=== PATIENT | female | born 1935 | race Caucasian/White ===

== ENCOUNTER 2018-11-02 12:40 | Inpatient (IN) | payer MEDICARE, OTHER ==
[~2018-11-02] VITALS: Ht 160 cm; Wt 45.4 kg
[2018-11-02 12:41] VITALS: BP 161/70
[2018-11-02] MEDS ORDERED: BISACODYL5 MG ORAL (13:12)
[2018-11-02] MEDS ORDERED: CULTURELLE1 EACH ORAL (13:12)
[2018-11-02] MEDS ORDERED: ELIQUIS2.5 MG PO (13:12)
[2018-11-02] MEDS ORDERED: BENTYL10 MG/1 ML IM (13:12)
[2018-11-02] MEDS ORDERED: VITAMIN D1000 UNI1 ORAL (13:12)
[2018-11-02] MEDS ORDERED: HYDROXYZINE HCL25 M1 PO (13:12)
[2018-11-02] MEDS ORDERED: BENGAY GREASELE57 GM TP (13:12)
[2018-11-02] MEDS ORDERED: COLACE100 MG ORAL (13:12)
[2018-11-02] MEDS ORDERED: FAMOTIDINE20 MG ORAL (13:12)
--- NOTE | 2018-11-02 13:13 | NUR ---
ED Nurse Note: Pt ADONAY from [facility] due to generalized whole body ache x "weeks", no recent injury. Pt. also complained of abd pain x 1 week. denies n/v/d. pt. came in with 20 gauge on the R hand. No s/s of acute distress noted. Pt. AAOx4.
[2018-11-02 13:14] LABS: BASOPHILS % (AUTO) 1.6 % (0.0-2.0); EOSINOPHILS % (AUTO) 2.4 % (0.0-3.0); HEMATOCRIT 37.6 % (37.0-47.0); HEMOGLOBIN 12.3 G/DL (12.0-16.0); LYMPHOCYTES % (AUTO) 21.6 % (20.0-45.0); MEAN CORPUSCULAR VOLUME 94 FL (80-99); MONOCYTES % (AUTO) 10.2 % (1.0-10.0); NEUTROPHILS % (AUTO) 64.2 % (45.0-75.0); PLATELET COUNT 316 K/UL (150-450); RED BLOOD COUNT 3.99 M/UL (4.20-5.40); RED CELL DISTRIBUTION WIDTH 14.4 % (11.6-14.8); WHITE BLOOD COUNT 7.6 K/UL (4.8-10.8)
[2018-11-02] MEDS ORDERED: LOSARTAN POTASS50 MG ORAL (13:14)
[2018-11-02] MEDS ORDERED: SENNA8.6 M2 PO (13:14)
[2018-11-02] MEDS ORDERED: MAGNESIUM OXID400 M1 ORAL (13:14)
[2018-11-02] MEDS ORDERED: LINZESS290 MCG PO (13:14)
[2018-11-02] MEDS ORDERED: LIDODERM700 M1 TOPIC (13:14)
[2018-11-02] MEDS ORDERED: Meropenem 1 GM in NS 55 ML IVPB ONE (13:15)
--- NOTE | 2018-11-02 13:22 | Emergency Room Report ---
History of Present Illness General Chief Complaint: Pain Present Illness HPI 82-year-old female presents to the emergency department [facility] complaining of 6 out of 10 severity lower abdominal pain times unknown amount of days. Patient is also reporting generalized body aches that she states is chronic. Patient with history of dysphasia following a CVA, depression, hypertension and atrial fibrillation as well as intermittent malnutrition. He was recently discharged from [facility] for UTI with ESBL that was only susceptible to meropenem. Patient denies fevers or chills. Reports that she wears a diaper she is not catheterized. Denies CP, nausea, vomiting, constipation or diarrhea. Pt. complaining of burning while urinating. is unable to detail frequency or urgency. No aggravating or relieving factors at this time. (Sara Rascon) Allergies: Coded Allergies: CEPHALOSPORINS (Verified Allergy, Unknown, 11/02/18) PENICILLINS (Verified Allergy, Unknown, 11/02/18) Patient History Past Medical History: see triage record, old chart reviewed - [facility] Past Surgical History: none Pertinent Family History: none Now: No Reviewed Nursing Documentation: PMH: Agreed; PSxH: Agreed (Sara Rascon) Nursing Documentation-PMH Hx Hypertension: Yes - Dysphagia History Of Psychiatric Problem: Yes - Depression (Sara Rascon) Review of Systems All Other Systems: negative except mentioned in HPI (Sara Rascon) Physical Exam Vital Signs Date Time Temp Pulse Resp B/P (MAP) Pulse Ox O2 Delivery O2 Flow Rate FiO2 11/02/18 12:41 98.6 78 22 161/70 (100) 99 Room Air Sp02 EP Interpretation: reviewed, normal General Appearance: no apparent distress, alert, GCS 15, non-toxic Head: normocephalic, atraumatic Eyes: bilateral eye normal inspection, bilateral eye PERRL ENT: hearing grossly normal, normal voice Neck: full range of motion - mild kyphosis, no bony tend Respiratory: chest non-tender, no respiratory distress, no retraction, no accessory muscle use, no wheezing, crackles - scant lower lung delgado bilat-, speaking full sentences, other - shallow breaths Cardiovascular #1: regular rate, rhythm - irregularly irregular, no edema, normal capillary refill Gastrointestinal: normal bowel sounds, soft, tenderness - lower abdominal TTP Rectal: deferred Genitourinary: normal inspection, other - pt. with diaper. pt. has some dry hyperpigmented plaques on the right inner thigh/groin-- she reports are itchy Musculoskeletal: back normal, normal range of motion, non-tender Neurologic: alert, oriented x3, responsive, motor strength/tone normal - lower extremity atrophy bilaterally, normal strength to bilateral UE's, sensory intact , speech normal, other - no obvious unilateral cva residual deficits other than LE atrophy bilaterally, grossly normal Psychiatric: judgement/insight normal, anxious - mildly anxious, asking for help often, requests water persistently Skin: rash - hyperpigmented plaque in right inner thigh/groin. no decub. ulcers (Sara Rascon) Medical Decision Making PA Attestation Dr. Low Is my supervising Physician whom patient management has been discussed with. (Sara Rascon) Diagnostic Impression: Primary Impression: UTI due to extended-spectrum beta lactamase (ESBL) producing Escherichia coli Additional Impressions: CHF exacerbation Qualified Codes: I50.9 - Heart failure, unspecified Elevated troponin ER Course PT IS DNR- Comfort measures only - original copy of POLST 82-year-old female presents to the emergency department [facility] complaining of 6 out of 10 severity lower abdominal pain times unknown amount of days. Patient is also reporting generalized body aches that she states is chronic. Patient with history of dysphasia following a CVA, depression, hypertension and atrial fibrillation as well as intermittent malnutrition. He was recently discharged from [facility] for UTI with ESBL that was only susceptible to meropenem. Patient denies fevers or chills. Reports that she wears a diaper she is not catheterized. Denies CP, nausea, vomiting, constipation or diarrhea. Pt. complaining of burning while urinating. is unable to detail frequency or urgency. No aggravating or relieving factors at this time. Ddx considered but are not limited to UTI, Pyelo, Sepsis, Diverticulitis, acute appendicitis, diarrhea,UC, PUD, GE, pancreatitis, gallstone, ovarian torsion, NE , PID tubo-ovarian abscess. Vital signs: are WNL, pt. is afebrile H&PE are most consistent with Cystitis secondary to ESBL infection, due to pmhx complexity will do lab work up. ORDERS: -CBC, CMP: Unremarkable -UA: Nitrite positive, RBC's and bacteria consistent with active UTI -Lactic Acid: 0.80 -Blood Cultures: Pending -Troponin: 0.51 Please note troponin is trending downward -- previous elevated troponin of 1.1 according to [facility] paperwork dated yesterday. -BNP: elevated [id number] -CXR: bilateral pleural effusions - CT Abdomen and Pelvis W. IV Contrast: " Moderate to large left pleural effusion as well as moderate right pleural effusion with some associated atelectasis, mild cardiomegaly, cholelithiasis and a distended gallbladder. Atherosclerotic changes of the vasculature no aortic aneurysm or dissection. Wall thickening of the rectum and sigmoid colon concerning for colitis and proctitis. Fluid-filled gas filled small bowel loops nonspecific but could represent enteritis or ileus. No nephrosis or obstructing stones in the kidneys body wall edema. Thickening of the bladder may be secondary to under distention but correlate with urinalysis for cystitis. Calcified uterine fibroid" --per official radiology report- Please see report for specific details. ED INTERVENTIONS: - IV- 1 gram Meropenem -IV- 1 liter NS -325 ASA -1inch Nitro Paste -Lasix IV 20mg -K-Suly 40MeQ PO (K of 3.5 - and will be administering lasix) I feel this is a highly complex case requiring extensive working including EKG/ Rhythm strip, Xray/CT/US, Blood/urine lab work, repeat exams while in ED, and administration of IV Antibiotics (Meropenem) due to abx resistant bacteria, and admission to the hospital. DISPOSITION: at this time pt. will be admitted to Dr. Delgado for ESBL UTI and elevated Troponin/ CHF. Dr. Delgado agreed to admit the pt. and to continue pt. care management. Labs Test 11/02/18 12:53 11/02/18 13:09 11/02/18 13:20 White Blood Count 7.6 K/UL (4.8-10.8) Red Blood Count 3.99 M/UL (4.20-5.40) Hemoglobin 12.3 G/DL (12.0-16.0) Hematocrit 37.6 % (37.0-47.0) Mean Corpuscular Volume 94 FL (80-99) Mean Corpuscular Hemoglobin 30.8 PG (27.0-31.0) Mean Corpuscular Hemoglobin Concent 32.6 G/DL (32.0-36.0) Red Cell Distribution Width 14.4 % (11.6-14.8) Platelet Count 316 K/UL (150-450) Mean Platelet Volume 6.0 FL (6.5-10.1) Neutrophils (%) (Auto) 64.2 % (45.0-75.0) Lymphocytes (%) (Auto) 21.6 % (20.0-45.0) Monocytes (%) (Auto) 10.2 % (1.0-10.0) Eosinophils (%) (Auto) 2.4 % (0.0-3.0) Basophils (%) (Auto) 1.6 % (0.0-2.0) Sodium Level 141 MMOL/L (136-145) Potassium Level 3.5 MMOL/L (3.5-5.1) Chloride Level 106 MMOL/L (98-107) Carbon Dioxide Level 27 MMOL/L (21-32) Anion Gap 8 mmol/L (5-15) Blood Urea Nitrogen 16 mg/dL (7-18) Creatinine 0.7 MG/DL (0.55-1.30) Estimat Glomerular Filtration Rate mL/min (>60) Glucose Level 138 MG/DL (74-106) Calcium Level 8.7 MG/DL (8.5-10.1) Total Bilirubin 0.6 MG/DL (0.2-1.0) Aspartate Amino Transf (AST/SGOT) 16 U/L (15-37) Alanine Aminotransferase (ALT/SGPT) 11 U/L (12-78) Alkaline Phosphatase 73 U/L (46-116) Troponin I 0.519 ng/mL (0.000-0.056) Pro-B-Type Natriuretic Peptide 08992 pg/mL (0-125) Total Protein 6.7 G/DL (6.4-8.2) Albumin 3.2 G/DL (3.4-5.0) Globulin 3.5 g/dL Albumin/Globulin Ratio 0.9 (1.0-2.7) Lactic Acid Level 0.80 mmol/L (0.4-2.0) Urine Color Brown Urine Appearance Slightly cloudy Urine pH 5 (4.5-8.0) Urine Specific [place] 1.025 (1.005-1.035) Urine Protein Negative (NEGATIVE) Urine Glucose (UA) Negative (NEGATIVE) Urine Ketones Negative (NEGATIVE) Urine Blood Negative (NEGATIVE) Urine Nitrite Positive (NEGATIVE) Urine Bilirubin Negative (NEGATIVE) Urine Urobilinogen Normal MG/DL (0.0-1.0) Urine Leukocyte Esterase 1+ (NEGATIVE) Urine RBC 0-2 /HPF (0 - 2) Urine WBC 30-40 /HPF (0 - 2) Urine Squamous Epithelial Cells Many /LPF (NONE/OCC) Urine Bacteria Few /HPF (NONE) Urine Yeast Moderate /HPF (NONE) (Sara Rascon) ER Course Please see above note. Patient examined by me. Agree with treatment plan. Vistaril for mild agitation. Contacted Dr. Delgado for admission. Suggested lasix, aspirin. (Brian Giron MD) EKG Diagnostic Results EP Interpretation: Dr. Low Rate: normal Rhythm: other - A-fib ST Segments: no acute changes Other Impression LBBB ASA given to the pt in ED: Yes - 325mg PA Scribe Text This Interpretation was scribed by CLEM Rascon. (Sara Rascon) Chest X-Ray Diagnostic Results Chest X-Ray Diagnostic Results : Chest X-Ray Ordered: Yes # of Views/Limited/Complete: 1 View Indication: Other - septic work up EP Interpretation: Yes PA Xray: Interpretation reviewed, by supervising MD, and agrees with findings. Interpretation: other - bilateral pleural effusions Impression: Other - abnormal Electronically Signed by: Sara Rascon PA-C (Sara Rascon) CT/MRI/US Diagnostic Results CT/MRI/US Diagnostic Results : Imaging Test Ordered: CT Abdomen and Pelvis W. IV Contrast Impression " Moderate to large left pleural effusion as well as moderate right pleural effusion with some associated atelectasis, mild cardiomegaly, cholelithiasis and a distended gallbladder. Atherosclerotic changes of the vasculature no aortic aneurysm or dissection. Wall thickening of the rectum and sigmoid colon concerning for colitis and proctitis. Fluid-filled gas filled small bowel loops nonspecific but could represent enteritis or ileus. No nephrosis or obstructing stones in the kidneys body wall edema. Thickening of the bladder may be secondary to under distention but correlate with urinalysis for cystitis. Calcified uterine fibroid" --per official radiology report- Please see report for specific details. (Sara Rascon) Last Vital Signs Date Time Temp Pulse Resp B/P (MAP) Pulse Ox O2 Delivery O2 Flow Rate FiO2 11/02/18 12:41 98.6 78 22 161/70 99 Room Air (Sara Rascon) Last Vital Signs Date Time Temp Pulse Resp B/P (MAP) Pulse Ox O2 Delivery O2 Flow Rate FiO2 11/03/18 00:00 Room Air 11/03/18 00:00 97.7 76 18 120/56 (77) 97 Status: improved (Brian Giron MD) Disposition: ADMITTED INPATIENT Condition: Serious Referrals: Stan Delgado MD (PCP) Sara Rascon Nov 02, 2018 13:22 Brian Giron MD Nov 03, 2018 01:37
[2018-11-02 13:26] LABS: ANION GAP 8 mmol/L (5-15); BLOOD UREA NITROGEN 16 mg/dL (7-18); CALCIUM 8.7 MG/DL (8.5-10.1); CARBON DIOXIDE 27 MMOL/L (21-32); CHLORIDE 106 MMOL/L (98-107); CREATININE 0.7 MG/DL (0.55-1.30); POTASSIUM 3.5 MMOL/L (3.5-5.1); SODIUM 141 MMOL/L (136-145)
[2018-11-02 13:31] LABS: ALANINE AMINOTRANSFERASE 11 U/L (12-78); ALBUMIN 3.2 G/DL (3.4-5.0); ALBUMIN/GLOBULIN RATIO 0.9 (1.0-2.7); ALKALINE PHOSPHATASE 73 U/L (46-116); ASPARTATE AMINO TRANSFERASE 16 U/L (15-37); BILIRUBIN,TOTAL 0.6 MG/DL (0.2-1.0)
[2018-11-02] MEDS ORDERED: Morphine Sulfate 2mg/ml Inj(IV/IM USE ONLY) IVP ONE (13:45)
[2018-11-02] MEDS ORDERED: Phenazopyridine 200mg tab ORAL ONE (13:45)
[2018-11-02 13:49] LABS: COLOR,URINE BROWN; GLUCOSE, URINE (UA) NEGATIVE (NEGATIVE); LEUKOCYTE ESTERASE ,URINE 1+ (NEGATIVE); NITRITE,URINE POSITIVE (NEGATIVE); PH,URINE 5 (4.5-8.0)
[2018-11-02 13:50] LABS: APPEARANCE,URINE SLIGHTLY CLOUDY; BILIRUBIN, URINE NEGATIVE (NEGATIVE); KETONES,URINE NEGATIVE (NEGATIVE); PROTEIN,URINE NEGATIVE (NEGATIVE); UROBILINOGEN,URINE NORMAL MG/DL (0.0-1.0)
[2018-11-02] MEDS ORDERED: Isovue-300 100ml vial INJ PRN (14:15)
--- NOTE | 2018-11-02 14:15 | NUR ---
ED Nurse Note: MEI SHEPHERD FOR PT TO EAT/DRINK. WATER AND LUNCH PROVIDED TO PT ASSISTED BY [employer].
--- NOTE | 2018-11-02 14:35 | NUR ---
ED Nurse Note: PT TAKEN TO CT. VSS.
[2018-11-02 14:50] VITALS: BP 150/69
--- NOTE | 2018-11-02 14:54 | NUR ---
ED Nurse Note: PT CAME BACK FROM CT. VSS.
--- NOTE | 2018-11-02 15:07 | Diagnostic Imaging Report ---
Indication: Abdominal pain Technique: Continuous helical transaxial imaging of the abdomen and pelvis was obtained from the lung bases to the pubic symphysis during intravenous contrast administration. Coronal 2-D reformats were also obtained. Study obtained in a Siemens sensation [address] Automatic Exposure Control was utilized. Total Dose length Product (DLP): 630.[address] Dose Index Volume (CTDIvol): 11.42 mGy Comparison: None Findings: Moderate bilateral pleural effusions are present. Heart is enlarged. There is posterior basilar atelectasis or consolidation not evaluated well on this study. The skin was obtained during arterial phase. The aorta is well opacified and shows mural calcium with no dissection or aneurysm. There are multiple gallstones. Solid organs are not optimally evaluated on this study even though contrast was administered as evaluation of parenchyma is best on venous phase. Having said that, the liver and spleen show no definite abnormalities. The pancreas is atrophic and otherwise unremarkable. There is no biliary ductal dilatation identified. The kidneys are atrophic bilaterally. There is no hydronephrosis. There are multiple gallstones. Bowel gas pattern appears nonobstructive. Atrophic uterus with calcific focus likely a fibroid. The appendix is not definitely seen but there are no secondary signs of acute appendicitis. There is narrowing of intervertebral discs and accompanying endplate osteophyte formation. There is a right convex lumbar scoliosis. Hypertrophied facet joints also demonstrated.. Bones are osteopenic. An old fracture of the right acetabulum and pubis noted. IMPRESSION: Cholelithiasis. Moderate to large bilateral pleural effusions and posterior basal atelectasis and/or pneumonia. Arterial vascular disease Atrophic kidneys Degenerative changes of the spine and scoliosis Uterine fibroid Status post surgery in the area of the gastroesophageal junction nature of which is not known. Old right pubis fracture The CT scanner at [facility] is accredited by the [employer] and the scans are performed using dose optimization techniques as appropriate to a performed exam including Automatic Exposure control.
--- NOTE | 2018-11-02 15:23 | NUR ---
ED Nurse Note: CALLED LAB TO FF UP WITH ADD ON ORDERS OF TROPONIN AND BNP.
--- NOTE | 2018-11-02 15:39 | NUR ---
ED Nurse Note: NOTED BRUISING ON RIGHT ARM, AND REDNESS ON SACRUM.
[2018-11-02] MEDS ORDERED: Nitroglycerin 2% oint pkt TOPIC ONE (16:00)
--- NOTE | 2018-11-02 16:28 | NUR ---
ED Nurse Note: REPORT GIVEN TO GEOFF BARBOZA OF [facility].
--- NOTE | 2018-11-02 17:30 | NUR ---
NURSE NOTES: Received report from TAMRA Galindo. Patient arrived to unit in stable condition. No s/sx of SOB, breathing is even and unlabored, room air. Denies any presence of pain or discomfort at this time. Bed is in lowest position, brakes engaged. Call light is kept within easy reach. Will continue to monitor patient.
--- NOTE | 2018-11-02 17:45 | NUR ---
NURSE NOTES: Assessed skin integrity, patient admitted with sacral skin redness and perianal redness. Wound care protocol initiated. Noted.
--- NOTE | 2018-11-02 17:45 | NUR ---
NURSE NOTES: Attempted to call patient's public guardian regarding skin issue, unable to reach due to being the weekend. Noted.
--- NOTE | 2018-11-02 18:10 | NUR ---
NURSE NOTES: Dr. Delgado called nurse station. Gave admission orders via telephone, orders read back and acknowledged. Made Dr. Delgado aware patient is DNR/DNI with POLST, Dr. Delgado acknowledged and continued code status in hospital. Order entered and noted. Charge nurse made aware. Will continue to monitor patient.
[2018-11-02] MEDS ORDERED: Bisacodyl EC 5mg tab ORAL PRN (18:15)
[2018-11-02] MEDS ORDERED: Lactulose 20gm/30ml UDC ORAL PRN (18:15)
--- NOTE | 2018-11-02 18:38 | NUR ---
NURSE NOTES: Per Dr. Delgado ordered Meropenem IV per pharmacy dosing. Per pharmacist will do Meropenem IV 1 gm q12hr at this time, order will within 24 hours due to needing an infectious disease consult for medication. Called and left message with Dr. Delgado, awaiting call back. Will endorse accordingly. Made charge nurse aware. Will continue to monitor patient.
--- NOTE | 2018-11-02 19:25 | NUR ---
NURSE NOTES: Report received from TAMRA Nielsen. Observed pt watching television. A/O x3. SR with chair. RA with no signs of SOB. Sacral redness and perineal redness noted. Abd round, soft, and non-tender. IV on R hand 20G, SL, L hand 20G, SL. Bed in the lowest position. Side rails up x3. Will continue to monitor.
--- NOTE | 2018-11-02 19:29 | NUR ---
HAND-OFF: Report given to TAMRA Benitez.
[2018-11-02 20:00] VITALS: BP 147/86
--- NOTE | 2018-11-02 22:30 | NUR ---
NURSE NOTES: Got PRN meds order from per pt request. Will continue to monitor.
[2018-11-03] VITALS: BP 120/56
--- NOTE | 2018-11-03 | NUR ---
NURSE NOTES: Observed pt sleeping in bed. VS within normal limit. 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 No acute distress noted at this time.
[2018-11-03] MEDS: Meropenem 1 GM in NS 55 ML IVPB SCH ×2 (01:40→13:31)
--- NOTE | 2018-11-03 02:30 | History and Physical Report ---
DATE OF ADMISSION: 11/02/2018 HISTORY OF PRESENT ILLNESS: The patient is an unfortunate 82-year-old female with a history of CVA, history of AFib, history of hypertension, and history of hyperlipidemia, who was sent in from a nursing facility secondary to not feeling well and some dysuria. The patient apparently was diagnosed with ESBL UTI. Also, she was noted to have elevated troponin. She denied any chest pain. Some dyspnea. She denies any abdominal pain. Some nausea. No vomiting. She does have history of constipation. 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 ALLERGIES: She is allergic to penicillins and cephalosporins. SOCIAL HISTORY: The patient resides at [facility]. She does not smoke. Does not drink any alcohol. REVIEW OF SYSTEMS: A 12-point review of systems reviewed and negative except for above. PHYSICAL EXAMINATION: GENERAL: She is well developed and well nourished elderly, currently in no apparent distress. VITAL SIGNS: Stable. HEENT: Head is normocephalic and atraumatic. Pupils reactive to light. Extraocular muscles are intact. Eyes are anicteric. Conjunctivae are slightly pale. LUNGS: Decreased breath sounds. HEART: Irregularly irregular. ABDOMEN: Soft. Positive bowel sounds. BACK: No CVA tenderness. EXTREMITIES: No clubbing, cyanosis, or edema. NEUROLOGIC: She does have chronic left-sided weakness. LABORATORY DATA: Noted. ASSESSMENT AND PLAN: The patient is an unfortunate 82-year-old female, who was sent in from a nursing facility, not feeling well, some dysuria, and recently diagnosed with ESBL UTI. The patient will be admitted and placed on meropenem. I have asked Infectious Disease consultation to see her. The troponin is slightly elevated. The patient will be admitted to a monitored bed. We will obtain followup troponins and 2D echo and I will ask Dr. Robbins to see her from Cardiology perspective. Her BNP is slightly elevated, we will give her some diuretics. The patient should be on DVT and ulcer prophylaxis. Stan Delgado M.D. DR: FLAVIA JOB#: [id number] CC:
[2018-11-03 04:00] VITALS: BP 137/74
[2018-11-03 06:08] LABS: BASOPHILS % (AUTO) 1.2 % (0.0-2.0); HEMATOCRIT 35.1 % (37.0-47.0); HEMOGLOBIN 11.7 G/DL (12.0-16.0); LYMPHOCYTES % (AUTO) 23.4 % (20.0-45.0); MEAN CORPUSCULAR VOLUME 93 FL (80-99); MONOCYTES % (AUTO) 12.2 % (1.0-10.0); NEUTROPHILS % (AUTO) 58.3 % (45.0-75.0); PLATELET COUNT 292 K/UL (150-450); RED BLOOD COUNT 3.78 M/UL (4.20-5.40); RED CELL DISTRIBUTION WIDTH 14.2 % (11.6-14.8); WHITE BLOOD COUNT 6.6 K/UL (4.8-10.8)
[2018-11-03 06:39] LABS: ALANINE AMINOTRANSFERASE 7 U/L (12-78); ALBUMIN 3.1 G/DL (3.4-5.0); ALBUMIN/GLOBULIN RATIO 0.9 (1.0-2.7); ALKALINE PHOSPHATASE 73 U/L (46-116); ANION GAP 7 mmol/L (5-15); ASPARTATE AMINO TRANSFERASE 20 U/L (15-37); BILIRUBIN,TOTAL 0.4 MG/DL (0.2-1.0); BLOOD UREA NITROGEN 14 mg/dL (7-18); CALCIUM 8.6 MG/DL (8.5-10.1); CARBON DIOXIDE 27 MMOL/L (21-32); CHLORIDE 106 MMOL/L (98-107); CHOLESTEROL 168 MG/DL (< 200); CREATININE 0.8 MG/DL (0.55-1.30); HDL CHOLESTEROL 49 MG/DL (40-60); POTASSIUM 3.9 MMOL/L (3.5-5.1); SODIUM 140 MMOL/L (136-145); TRIGLYCERIDES 92 MG/DL (30-150)
--- NOTE | 2018-11-03 07:08 | NUR ---
HAND-OFF: Report given to TAMRA Matos. No acute distress noted at this time.
--- NOTE | 2018-11-03 07:31 | NUR ---
NURSE NOTES: received patient report from lizy valentine. patient is on bed asleep. not in acute distress. no arrythmias reported during the night. bed is low and locked for safety. will follow plan of care.
[2018-11-03 08:00] VITALS: BP 154/74
[2018-11-03] MEDS: Eliquis 2.5mg tablet ORAL SCH ×2 (08:06→17:14)
[2018-11-03] MEDS: Vitamin D 1000 IU Tab ORAL SCH ×2 (08:06→17:14)
[2018-11-03] MEDS: Lactobacillus-GG tablet ORAL SCH ×3 (08:07→17:14)
--- NOTE | 2018-11-03 08:40 | NUR ---
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 ELEVATED TROPONIN I . UTI VS: BP 161/70, P 78, T 98.6, RR 22, SpO2 99 RBC 3.99, GLUCOSE 138, ALT 11, TROPONIN 1 0.519 IS:VISTARIL 10mg LASIX 20mg IV K-DUR 40meq ASPIRIN 325mg NITRO-BID 1inch PYRIDIUM 200mg MORPHINE SULFATE 2mg IVP MEROPENEM 55ml IVPB ADMITTED TO MED/SURG DCP: RETURN TO [facility]
[2018-11-03] MEDS ORDERED: Aspirin Baby 81mg ORAL SCH (09:00)
[2018-11-03] MEDS ORDERED: Losartan 50mg tab ORAL SCH (09:00)
[2018-11-03] MEDS ORDERED: Sennosides 8.6mg tab ORAL SCH (09:00)
[2018-11-03] MEDS ORDERED: Magnesium Oxide 400mg tab ORAL SCH (09:00)
[2018-11-03] MEDS ORDERED: Docusate 100mg cap ORAL SCH (09:00)
[2018-11-03] MEDS ORDERED: Vancomycin 1gm/D5W 275ml IVPB ONE ×2 (11:00)
--- NOTE | 2018-11-03 11:13 | NUR ---
P.T Note: P.T evaluation completed. Pt is alert oriented to self, place, time and situation. Pt reports c/o R shoulder and lower back pain aggravated by mobility 3-5/10 however cooperative to participate in P.T evaluation. 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 Pt is dependent/total assist for all ADL/functional mobilities. Pt is already at baseline function therefore not a candidate for skilled P.T services. Recommend return to prior living arrangement at [facility]. Thank you for this referral.
--- NOTE | 2018-11-03 11:20 | NUR ---
P.T Note: P.T evaluation completed. Pt is alert oriented to self, place, time and situation. Pt reports c/o R shoulder and lower back pain aggravated by mobility 3-5/10 however cooperative to participate in P.T evaluation. 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 Pt is dependent/total assist for all ADL/functional mobilities. Pt is already at baseline function therefore not a candidate for skilled P.T services. Recommend return to prior living arrangement at [facility]. No further skilled P.T follow up. [facility] P[facility]T services. Thank you for this referral.
--- NOTE | 2018-11-03 11:50 | Diagnostic Imaging Report ---
Indication: Chest pain Comparison: None A single view chest radiograph was obtained. Findings: Interstitial edema demonstrated. Bilateral pleural effusions and cardiomegaly demonstrated. Bones are osteopenic. IMPRESSION: Pulmonary edema
[2018-11-03 12:00] VITALS: BP 149/79
--- NOTE | 2018-11-03 13:45 | Cardiac Electrophysiology PN ---
Subjective Subjective [id number] Objective Last 24 Hour Vital Signs Date Time Temp Pulse Resp B/P (MAP) Pulse Ox O2 Delivery O2 Flow Rate FiO2 11/03/18 12:00 96.8 72 16 149/79 (102) 96 11/03/18 12:00 Room Air 11/03/18 08:09 154/74 11/03/18 08:00 Room Air 11/03/18 08:00 97.0 70 16 154/74 (100) 96 11/03/18 07:56 69 11/03/18 04:00 Room Air 11/03/18 04:00 67 11/03/18 04:00 97.5 76 16 137/74 (95) 98 11/03/18 00:00 Room Air 11/03/18 00:00 97.7 76 18 120/56 (77) 97 11/03/18 00:00 74 11/02/18 20:00 97.6 72 16 147/86 (106) 98 11/02/18 20:00 74 11/02/18 20:00 Room Air 11/02/18 17:48 Room Air 11/02/18 16:39 98.0 88 18 146/72 100 Room Air 11/02/18 16:17 150/69 11/02/18 14:50 98.2 75 16 150/69 98 Room Air 11/02/18 14:09 98.6 Intake and Output 11/02/18 11/03/18 19:00 07:00 Intake Total 355 ml 295 ml Output Total 0 ml 900 ml Balance 355 ml -605 ml Intake Oral 300 ml 240 ml IV Total 55 ml 55 ml Output Urine Total 0 ml 900 ml # Voids 1 1 Laboratory Tests Test 11/03/18 03:54 White Blood Count 6.6 K/UL (4.8-10.8) Red Blood Count 3.78 M/UL (4.20-5.40) L Hemoglobin 11.7 G/DL (12.0-16.0) L Hematocrit 35.1 % (37.0-47.0) L Mean Corpuscular Volume 93 FL (80-99) Mean Corpuscular Hemoglobin 31.0 PG (27.0-31.0) Mean Corpuscular Hemoglobin Concent 33.4 G/DL (32.0-36.0) Red Cell Distribution Width 14.2 % (11.6-14.8) Platelet Count 292 K/UL (150-450) Mean Platelet Volume 5.9 FL (6.5-10.1) L Neutrophils (%) (Auto) 58.3 % (45.0-75.0) Lymphocytes (%) (Auto) 23.4 % (20.0-45.0) Monocytes (%) (Auto) 12.2 % (1.0-10.0) H Eosinophils (%) (Auto) 5.0 % (0.0-3.0) H Basophils (%) (Auto) 1.2 % (0.0-2.0) Sodium Level 140 MMOL/L (136-145) Potassium Level 3.9 MMOL/L (3.5-5.1) Chloride Level 106 MMOL/L (98-107) Carbon Dioxide Level 27 MMOL/L (21-32) Anion Gap 7 mmol/L (5-15) Blood Urea Nitrogen 14 mg/dL (7-18) Creatinine 0.8 MG/DL (0.55-1.30) Estimat Glomerular Filtration Rate mL/min (>60) Glucose Level 79 MG/DL (74-106) Calcium Level 8.6 MG/DL (8.5-10.1) Total Bilirubin 0.4 MG/DL (0.2-1.0) Aspartate Amino Transf (AST/SGOT) 20 U/L (15-37) Alanine Aminotransferase (ALT/SGPT) 7 U/L (12-78) L Alkaline Phosphatase 73 U/L (46-116) Troponin I 0.468 ng/mL (0.000-0.056) Pro-B-Type Natriuretic Peptide 26041 pg/mL (0-125) H Total Protein 6.4 G/DL (6.4-8.2) Albumin 3.1 G/DL (3.4-5.0) L Globulin 3.3 g/dL Albumin/Globulin Ratio 0.9 (1.0-2.7) L Triglycerides Level 92 MG/DL (30-150) Cholesterol Level 168 MG/DL (< 200) LDL Cholesterol 105 mg/dL (<100) H HDL Cholesterol 49 MG/DL (40-60) Cholesterol/HDL Ratio 3.4 (3.3-4.4) Thyroid Stimulating Hormone (TSH) 2.462 uiU/mL (0.358-3.740) Microbiology Date/Time Source Procedure Growth Status 11/02/18 12:53 Blood Blood Culture - Preliminary Resulted 11/02/18 13:20 Urine,Clean Catch Urine Culture - Preliminary NO GROWTH Resulted Yoni Robbins MD Nov 03, 2018 13:45
[2018-11-03 16:00] VITALS: BP 142/80
--- NOTE | 2018-11-03 16:29 | Consultation ---
DATE OF CONSULTATION: 11/03/2018 INFECTIOUS DISEASE CONSULT This consult is for coverage of Dr. Villa. CONSULTING PHYSICIAN: Jesse Hemphill M.D. PRIMARY ATTENDING: Stan Delgado M.D. REASON FOR CONSULT: UTI. HISTORY OF PRESENT ILLNESS: This is an 82-year-old white female who is a intermediate resident, admitted yesterday complaining of lower abdominal pain. She said that she had an episode of vomiting also. The urine culture in nursing facility growing E. coli ESBL that is sensitive to meropenem and the patient was transferred to the hospital to get IV antibiotic. PAST MEDICAL HISTORY: Significant for hypertension, atrial fibrillation, history of CVA and left-sided paresis, dysphagia, depression, peripheral neuropathy, anemia, left bundle-branch, coronary artery disease, dementia, cholelithiasis, statin-induced myopathy, osteoarthritis, osteoporosis, gastroesophageal reflux disease, spinal stenosis. ALLERGIES: Allergic to penicillin and cephalosporin. MEDICATIONS: Getting apixaban, vitamin D, Colace, Pepcid, lactobacillus, losartan, Senokot, aspirin, meropenem, Tylenol, Mylanta, bisacodyl, lactulose. SOCIAL HISTORY: senior living resident. . Has no child. No history of alcohol, drug abuse, or smoking. REVIEW OF SYSTEMS: No fever. No chills. No headache. Nausea, vomiting, had one in the nursing facility. Abdominal pain that is generalized. No problem passing urine. She is incontinent. PHYSICAL EXAMINATION: VITAL SIGNS: Temperature 97, pulse 70, blood pressure 154/74. GENERAL APPEARANCE: Seems to be thin. HEAD AND NECK: No teeth or dentures. HEART: Normal rate. LUNGS: Clear. ABDOMEN: Soft. Diffusely tender. EXTREMITIES: No edema. Has severe muscle atrophy. LABORATORY AND DIAGNOSTIC DATA: UA showed WBC of 30 to 40, leukocyte esterase 1+, nitrite positive. WBC 6.6, hemoglobin 11.7, hematocrit 35.1, platelets is 292. Sodium 140, potassium 3.9, chloride 106, bicarb 27, BUN 14, creatinine 0.8. Troponin is elevated with peak level of 0.5. BNP is 13,680. The patient had a CT scan of the abdomen and pelvis showed [id number] left pleural effusion, moderate right pleural effusion, cholelithiasis, mild thickening of rectum and sigmoid colon concerning of colitis, proctitis, scoliosis, mild thickening of bladder. IMPRESSION: UTI with ESBL E. coli. The patient has penicillin allergy. Has pleural effusion, acute CHF, hypertension, colitis, elevated troponin, dementia. RECOMMENDATION: We will continue meropenem. So far, cultures in the hospital are negative. We will follow up the clinical course. At the end of my exam, I thank Dr. Delgado for involving me in the care of this patient. Jesse Hemphill M.D. DR: JANELLE JOB#: [id number] CC: MONA
--- NOTE | 2018-11-03 17:14 | Consultation ---
DATE OF CONSULTATION: 11/03/2018 CARDIOLOGY CONSULTATION CONSULTING PHYSICIAN: Yoni Robbins M.D. REFERRING PHYSICIAN: Stan Delgado M.D. REASON FOR CONSULTATION: Management of hypertension, atrial fibrillation, congestive heart failure, as well as elevated troponin. HISTORY OF PRESENT ILLNESS: The patient is an 82-year-old lady with history of hypertension, atrial fibrillation, history of CVA, and hyperlipidemia, was sent from nursing facility with not feeling well and dysuria. The patient was diagnosed with ESBL urinary tract infection. The patient is also noted to have elevated troponin. The patient's EKG showed atrial fibrillation with complete left bundle-branch block and troponin was also mildly elevated. The Cardiology consultation was obtained for further evaluation and management. REVIEW OF SYSTEMS: Negative other than what was mentioned in the history of present illness. PAST MEDICAL HISTORY: As mentioned above in addition to pulmonary embolism, hyperlipidemia, peripheral neuropathy, anemia, spinal stenosis, left-sided paresis, depression, peptic ulcer disease, cholelithiasis, dementia, statin-induced myopathy, and an old FL. ALLERGIES: She is allergic to penicillin and cephalosporin. SOCIAL HISTORY: She does not smoke or drink alcohol. Lives in a assisted. PHYSICAL EXAMINATION: VITAL SIGNS: Show blood pressure of 149/79, pulse 72, respirations 16, and temperature 96.8. HEAD AND NECK: Showed no JVD. LUNGS: Clear. CARDIOVASCULAR: Shows irregular S1 and S2 with no gallop or murmur. ABDOMEN: Soft. EXTREMITIES: No pitting edema. DIAGNOSTIC DATA: EKG showed atrial fibrillation with left bundle-branch block. LABORATORY DATA: Labs show white count of 6.6, hemoglobin 11.9, hematocrit 35.1, and platelet count is 292,000. Sodium 140, potassium 3.9, BUN of 14, creatinine 0.8, and glucose 79. Troponin 0.519 and 0.468. Her BNP was 16,729. Her preliminary echocardiogram showed ejection fraction of 30% to 35%. ASSESSMENT AND PLAN: 1. Troponin leak. The levels are flat. The patient currently does not have any chest pain. The patient is already on aspirin and start the small dose of beta-chitra especially in view of her cardiomyopathy. 2. Atrial fibrillation. Rate is controlled. The patient is already on Eliquis 2.5 mg twice a day. 3. Complete left bundle-branch block. 4. ESBL UTI, on antibiotic. 5. Cardiomyopathy with EF of only 30% to 35 percent, but it is not clear at this time. At Coreg, Lasix, and NIMA inhibitor to her medical regimen. Thank you very much, Dr. Delgado, for allowing me to participate in the care of this patient. Please do not hesitate to contact for any questions regarding my evaluation. Yoni Robbins M.D. DR: BAILEY JOB#: [id number] CC:
--- NOTE | 2018-11-03 18:49 | General Progress Note ---
Assessment/Plan Assessment/Plan: GI CONSULTATION Assessment - Anorexia - malnutrition - low albumin - depression and dementia, likely the underlying cause of poor po - GERD Recommendations - continue H2B - Add low dose remeron qhs - can add other agents if remeron ineffective - Boost/Ensure - Calorie count Thank you Mare Crawford MD Subjective Allergies: Coded Allergies: CEPHALOSPORINS (Verified Allergy, Unknown, 11/02/18) PENICILLINS (Verified Allergy, Unknown, 11/02/18) Objective Last 24 Hour Vital Signs Date Time Temp Pulse Resp B/P (MAP) Pulse Ox O2 Delivery O2 Flow Rate FiO2 11/03/18 16:09 72 11/03/18 16:00 Room Air 11/03/18 16:00 96.8 76 20 142/80 (100) 97 11/03/18 12:00 96.8 72 16 149/79 (102) 96 11/03/18 12:00 Room Air 11/03/18 11:43 67 11/03/18 08:09 154/74 11/03/18 08:00 Room Air 11/03/18 08:00 97.0 70 16 154/74 (100) 96 11/03/18 07:56 69 11/03/18 04:00 Room Air 11/03/18 04:00 67 11/03/18 04:00 97.5 76 16 137/74 (95) 98 11/03/18 00:00 Room Air 11/03/18 00:00 97.7 76 18 120/56 (77) 97 11/03/18 00:00 74 11/02/18 20:00 97.6 72 16 147/86 (106) 98 11/02/18 20:00 74 11/02/18 20:00 Room Air Intake and Output 11/02/18 11/03/18 19:00 07:00 Intake Total 355 ml 295 ml Output Total 0 ml 900 ml Balance 355 ml -605 ml Intake Oral 300 ml 240 ml IV Total 55 ml 55 ml Output Urine Total 0 ml 900 ml # Voids 1 1 Laboratory Tests 11/03/18 03:54: White Blood Count 6.6, Red Blood Count 3.78L, Hemoglobin 11.7L, Hematocrit 35.1L , Mean Corpuscular Volume 93, Mean Corpuscular Hemoglobin 31.0, Mean Corpuscular Hemoglobin Concent 33.4, Red Cell Distribution Width 14.2, Platelet Count 292, Mean Platelet Volume 5.9L, Neutrophils (%) (Auto) 58.3, Lymphocytes ( %) (Auto) 23.4, Monocytes (%) (Auto) 12.2H, Eosinophils (%) (Auto) 5.0H, Basophils (%) (Auto) 1.2, Sodium Level 140, Potassium Level 3.9, Chloride Level 106, Carbon Dioxide Level 27, Anion Gap 7, Blood Urea Nitrogen 14, Creatinine 0.8, Estimat Glomerular Filtration Rate , Glucose Level 79, Calcium Level 8.6, Total Bilirubin 0.4, Aspartate Amino Transf (AST/SGOT) 20, Alanine Aminotransferase (ALT/SGPT) 7L, Alkaline Phosphatase 73, Troponin I 0.468H, Pro- B-Type Natriuretic Peptide 76102B, Total Protein 6.4, Albumin 3.1L, Globulin 3.3 , Albumin/Globulin Ratio 0.9L, Triglycerides Level 92, Cholesterol Level 168, LDL Cholesterol 105H, HDL Cholesterol 49, Cholesterol/HDL Ratio 3.4, Thyroid Stimulating Hormone (TSH) 2.462 Height (Feet): 5 Height (Inches): 3.00 Weight (Pounds): 109 Mare Crawford MD Nov 03, 2018 18:49
[2018-11-03] MEDS ORDERED: BISACODYL10 M1 RC (18:59)
[2018-11-03] MEDS ORDERED: CEPHALEXIN500 MG ORAL (18:59)
[2018-11-03] MEDS ORDERED: DICYCLOMINE HCL10 MG ORAL (18:59)
--- NOTE | 2018-11-03 19:13 | NUR ---
HAND-OFF: Report given to serina valentine.
--- NOTE | 2018-11-03 19:15 | NUR ---
NURSE NOTES: Received beside report from TARMA Matos.Patient stable in a bed,SR with BBB & PVC on cardiac cath lab radiology technologist,tolerated r/air well,no c/o pain,no respiratory distress noted,BS active in all quadrants,IV asymptomatic intact on R hand G 20 and L f/arm G 20 SL,bed secured in a low safety position,call light within a reach,will continue to monitor and follow POC
[2018-11-03] MEDS ORDERED: ACETAMINOPHEN325 M1 ORAL ×2 (19:17)
[2018-11-03] MEDS ORDERED: MULTIVITAMINS1 EAC8 ORAL (19:17)
[2018-11-03] MEDS ORDERED: MYLANTA SUSPENSION PO (19:17)
[2018-11-03] MEDS ORDERED: ESCITALOPRAM OX20 MG ORAL (19:17)
[2018-11-03] MEDS ORDERED: MIRALAX17 G2 ORAL (19:17)
[2018-11-03] MEDS ORDERED: SIMETHICONE80 MG ORAL (19:17)
[2018-11-03] MEDS ORDERED: TRAMADOL HCL50 MG ORAL (19:17)
[2018-11-03 20:00] VITALS: BP 137/70
--- NOTE | 2018-11-03 21:45 | Progress Note ---
DATE: 11/03/2018 INTERNAL MEDICINE PROGRESS NOTE SUBJECTIVE: The patient feels better. Decreased shortness of breath, some dysuria, positive fatigue. States she has no appetite. Some abdominal discomfort. Denies chest pain. PHYSICAL EXAMINATION: VITAL SIGNS: Stable. She is afebrile. HEENT: Head is normocephalic and atraumatic. Pupils are equal and reactive to light. Extraocular muscles are intact. Eyes are anicteric. NECK: Supple. LUNGS: Decreased breath sounds at the bases. HEART: Irregularly irregular. ABDOMEN: Soft. Positive bowel sounds. Nondistended and nontender. EXTREMITIES: No clubbing, cyanosis, or edema. NEUROLOGIC: She does have chronic left-sided weakness. ASSESSMENT: 1. ESBL UTI. 2. Bacteremia. 3. Atrial fibrillation. 4. CVA. 5. Abdominal pain. 6. Failure to thrive. 7. Elevated troponin. 8. CHF. PLAN: 1. Continue antibiotics as per Dr. Villa from Infectious Disease. Check culture results. 2. Check 2-D echo, monitor troponin. Dr. Robbins from Cardiology will be seeing her. 3. In terms of the abdominal pain, we placed her on stool softeners and laxatives. I have asked Dr. Crawford from GI to see her. 4. Placed her on DVT and ulcer prophylaxes. Stan Delgado M.D. DR: LOI JOB#: [id number] CC:
--- NOTE | 2018-11-03 22:15 | Consultation ---
DATE OF CONSULTATION: 11/03/2018 GASTROENTEROLOGY CONSULTATION CONSULTING PHYSICIAN: Mare Crawford M.D. REFERRING PHYSICIAN: Stan Delgado MD. CHIEF COMPLAINT: I was asked to see this patient by Dr. Stan Delgado for evaluation of anorexia and malnutrition. HISTORY OF PRESENT ILLNESS: The patient is a pleasant 82-year-old white woman from a [place] [facility], who was admitted for some vague symptoms of feeling sick and some degree of dysuria. She also has some elevated troponin. The patient also states that she has no appetite and she dislikes the [place] [facility] food. She has a low albumin down to 3.1 and she appears to have significant temporal wasting from this. She denies any abdominal pain, nausea, vomiting, diarrhea, or constipation, however, she has had a past chart history of cholelithiasis and peptic ulcer disease. She also has past chart history of dementia. When asked if she is depressed, she does state that she might be depressed. PAST MEDICAL HISTORY: History of pulmonary embolism, hypertension, hyperlipidemia, peripheral neuropathy, anemia, spinal stenosis, left-sided paresis due to stroke, history of depression, peptic ulcer disease, cholelithiasis, dementia, urosepsis, myopathy due to statin, osteoarthritis, history of myocardial infarction, atrial fibrillation, left bundle-branch block, gastroesophageal reflux disease, history of pneumonia. ALLERGIES: Penicillin, cephalosporin. FAMILY HISTORY: Noncontributory. SOCIAL HISTORY: The patient resides in a [place] [facility]. She does not smoke or drink alcohol. REVIEW OF SYSTEMS: The patient's last endoscopy and colonoscopy was many years ago that she cannot recall when. PHYSICAL EXAMINATION: GENERAL: A pleasant, thin, elderly woman seen in her room. HEENT: Normocephalic and atraumatic. Sclerae anicteric. Oropharynx clear. NECK: Supple. CHEST: Clear to auscultation. CARDIOVASCULAR: Revealed regular rate. ABDOMEN: Soft. Good bowel sounds. There is no organomegaly. EXTREMITIES: Revealed no edema. LABORATORY DATA: Noted. ASSESSMENT: This patient presents with a vague complaint of anorexia and she does have some physical findings of malnutrition including low albumin and temporal wasting. She has a chart record of both dementia and depression she may have some degree of depression. I suspect that this may be the cause of her overall anorexia and poor oral intake. As such, I would first try a treatment course of low-dose Remeron, which may treat her depression and anorexia. The patient can also have some nutritional supplements such as Boost or Lamar shakes given to her during meals. Should she fail to improve with Remeron, then other agents such as Marinol or Oxandrin can be added. The patient wants to remain conservative in all workup. Therefore, no invasive testing will be planned at this time. RECOMMENDATIONS: 1. Trial of Remeron 7.5 mg p.o. nightly. 2. Push oral intake. 3. Nutritional supplements. 4. Calorie count. 5. Further recommendations to follow. Thank you for asking me to participate in the care of this patient. Mare Crawford M.D. DR: ISIDRO JOB#: [id number] CC:
[2018-11-04] VITALS (7 sets, daily range): BP systolic 109–169; BP diastolic 59–88
[2018-11-04] MEDS: Meropenem 1 GM in NS 55 ML IVPB SCH ×2 (01:09→15:56)
[2018-11-04] MEDS ORDERED: Bisacodyl EC 5mg tab ORAL PRN (02:30)
[2018-11-04] MEDS ORDERED: Lactulose 20gm/30ml UDC ORAL PRN (02:30)
--- NOTE | 2018-11-04 02:30 | NUR ---
NURSE NOTES: Transferred pt to [facility],report given to TAMRA Charles.Patient stable,no s/s of respiratory distress,tolerated r/air well,IV intact SL,belongings list signed,pt keeping her bag at bedside,bed secured,call light within a reach.
--- NOTE | 2018-11-04 02:40 | NUR ---
NURSE NOTES: Received patient from [facility] as a transfer. Received report from TAMRA Flower. Patient is awake and alert x4. Patient is in room air with no signs of distress or SOB. IV access on the right hand 20g SL, and left hand 20g SL, both patent. Belongings with the patient at bedside. Bed locked and in lowest position with bed alarm on. Call light in reach. Will continue to monitor the patient.
--- NOTE | 2018-11-04 04:48 | NUR ---
NURSE NOTES: Received report from Андрей from lab that the patient is positive for VRE of the rectum. Informed charge nurse and will inform .
[2018-11-04 06:44] LABS: ANION GAP 5 mmol/L (5-15); BLOOD UREA NITROGEN 14 mg/dL (7-18); CALCIUM 8.3 MG/DL (8.5-10.1); CARBON DIOXIDE 30 MMOL/L (21-32); CHLORIDE 106 MMOL/L (98-107); CREATININE 0.9 MG/DL (0.55-1.30); POTASSIUM 3.8 MMOL/L (3.5-5.1); SODIUM 141 MMOL/L (136-145)
[2018-11-04 06:47] LABS: BASOPHILS % (AUTO) 1.9 % (0.0-2.0); EOSINOPHILS % (AUTO) 8.6 % (0.0-3.0); HEMATOCRIT 35.9 % (37.0-47.0); HEMOGLOBIN 11.8 G/DL (12.0-16.0); LYMPHOCYTES % (AUTO) 17.8 % (20.0-45.0); MEAN CORPUSCULAR VOLUME 94 FL (80-99); NEUTROPHILS % (AUTO) 59.8 % (45.0-75.0); PLATELET COUNT 275 K/UL (150-450); RED BLOOD COUNT 3.81 M/UL (4.20-5.40); WHITE BLOOD COUNT 6.4 K/UL (4.8-10.8)
--- NOTE | 2018-11-04 07:44 | NUR ---
NURSE NOTES: Handoff received from TAMRA Charles. Patient received stable and lying in bed. No signs of agitation. Bed is in the locked and lowest position with call light in reach, IV sites are clean dry and intact.
--- NOTE | 2018-11-04 07:51 | NUR ---
HAND-OFF: Report given to TAMRA Pinzon.
[2018-11-04] MEDS ORDERED: Spironolactone 25mg tab ORAL SCH (09:00)
[2018-11-04] MEDS ORDERED: Lisinopril 10mg tab ORAL SCH (09:00)
[2018-11-04] MEDS: Vitamin D 1000 IU Tab ORAL SCH ×2 (10:39→18:27)
[2018-11-04] MEDS: Losartan 50mg tab ORAL SCH (10:42)
[2018-11-04] MEDS: Magnesium Oxide 400mg tab ORAL SCH (10:42)
[2018-11-04] MEDS: Sennosides 8.6mg tab ORAL SCH (10:42)
[2018-11-04] MEDS: Eliquis 2.5mg tablet ORAL SCH ×2 (10:43→18:27)
[2018-11-04] MEDS: Docusate 100mg cap ORAL SCH (10:43)
[2018-11-04] MEDS: Aspirin Baby 81mg ORAL SCH (10:43)
[2018-11-04] MEDS: Lactobacillus-GG tablet ORAL SCH ×3 (10:43→18:26)
[2018-11-04] MEDS: Spironolactone 25mg tab ORAL SCH (10:43)
[2018-11-04] MEDS ORDERED: Vancomycin 750 MG in NS 275 ML IVPB SCH (11:00)
[2018-11-04] MEDS ORDERED: Vancomycin 750mg/NS 275ml IVPB SCH ×2 (11:00)
--- NOTE | 2018-11-04 11:21 | General Progress Note ---
Assessment/Plan Assessment/Plan: GAssessment - Anorexia - malnutrition - low albumin - depression and dementia, likely the underlying cause of poor po - GERD Recommendations - continue H2B - Low dose remeron qhs - can add other agents if Remeron ineffective - Boost/Ensure - Calorie count Subjective Allergies: Coded Allergies: CEPHALOSPORINS (Verified Allergy, Unknown, 11/02/18) PENICILLINS (Verified Allergy, Unknown, 11/02/18) Subjective Feels OK started on low dose Remeron last night still with poor appetite Objective Last 24 Hour Vital Signs Date Time Temp Pulse Resp B/P (MAP) Pulse Ox O2 Delivery O2 Flow Rate FiO2 11/04/18 10:42 109/59 11/04/18 10:42 67 109/59 11/04/18 04:00 Room Air 11/04/18 04:00 97.0 67 20 109/59 (76) 95 11/04/18 00:00 Room Air 11/04/18 00:00 97.5 74 24 143/75 (97) 96 11/03/18 23:25 71 11/03/18 20:30 75 137/70 11/03/18 20:00 Room Air 11/03/18 20:00 97.9 69 18 137/70 (92) 98 11/03/18 19:24 72 11/03/18 16:09 72 11/03/18 16:00 Room Air 11/03/18 16:00 96.8 76 20 142/80 (100) 97 11/03/18 12:00 96.8 72 16 149/79 (102) 96 11/03/18 12:00 Room Air 11/03/18 11:43 67 Intake and Output 11/03/18 11/04/18 19:00 07:00 Intake Total 660 ml 295 ml Output Total 600 ml Balance 60 ml 295 ml Intake Oral 550 ml 240 ml IV Total 110 ml 55 ml Output Urine Total 600 ml # Voids 2 # Bowel Movements 3 Laboratory Tests 11/04/18 06:20: White Blood Count 6.4, Red Blood Count 3.81L, Hemoglobin 11.8L, Hematocrit 35.9L , Mean Corpuscular Volume 94, Mean Corpuscular Hemoglobin 30.9, Mean Corpuscular Hemoglobin Concent 32.8, Red Cell Distribution Width 14.0, Platelet Count 275, Mean Platelet Volume 5.5L, Neutrophils (%) (Auto) 59.8, Lymphocytes ( %) (Auto) 17.8L, Monocytes (%) (Auto) 12.0H, Eosinophils (%) (Auto) 8.6H, Basophils (%) (Auto) 1.9, Sodium Level 141, Potassium Level 3.8, Chloride Level 106, Carbon Dioxide Level 30, Anion Gap 5, Blood Urea Nitrogen 14, Creatinine 0.9, Estimat Glomerular Filtration Rate , Glucose Level 120H, Calcium Level 8.3L , Troponin I 0.504H Height (Feet): 5 Height (Inches): 3.00 Weight (Pounds): 109 Objective Thin elderly WW NCAT supple CTA RRR abd soft ND NT no edema Mare Crawford MD Nov 04, 2018 11:21
--- NOTE | 2018-11-04 12:02 | Infectious Diseases Prog Note ---
Assessment/Plan Assessment/Plan IMPRESSION: Bacteremia UTI with ESBL E. coli. 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 Pleural effusion, a Acute CHF, hypertension, colitis, Elevated troponin, dementia. Eosinophilia RECOMMENDATION: We will continue meropenem & IV Vancomycin. Will f/u cultures Subjective ROS Limited/Unobtainable: No HEENT: Reports: no symptoms Respiratory: Reports: dry cough Cardiovascular: Reports: chest pain Gastrointestinal/Abdominal: Reports: other - abdominal pain Musculoskeletal: Reports: other - burning in legs Allergies: Coded Allergies: CEPHALOSPORINS (Verified Allergy, Unknown, 11/02/18) PENICILLINS (Verified Allergy, Unknown, 11/02/18) Objective Vital Signs Last 24 Hour Vital Signs Date Time Temp Pulse Resp B/P (MAP) Pulse Ox O2 Delivery O2 Flow Rate FiO2 11/04/18 10:42 109/59 11/04/18 10:42 67 109/59 11/04/18 08:00 Room Air 11/04/18 08:00 98.3 81 20 114/64 (81) 97 11/04/18 04:00 Room Air 11/04/18 04:00 97.0 67 20 109/59 (76) 95 11/04/18 00:00 Room Air 11/04/18 00:00 97.5 74 24 143/75 (97) 96 11/03/18 23:25 71 11/03/18 20:30 75 137/70 11/03/18 20:00 Room Air 11/03/18 20:00 97.9 69 18 137/70 (92) 98 11/03/18 19:24 72 11/03/18 16:09 72 11/03/18 16:00 Room Air 11/03/18 16:00 96.8 76 20 142/80 (100) 97 11/03/18 12:00 96.8 72 16 149/79 (102) 96 11/03/18 12:00 Room Air Height (Feet): 5 Height (Inches): 3.00 Weight (Pounds): 109 General Appearance: no acute distress HEENT: mucous membranes moist Respiratory/Chest: lungs clear Cardiovascular: normal rate Abdomen: soft, non tender Extremities: no edema Neurologic/Psychiatric: alert, responsive Microbiology Date/Time Source Procedure Growth Status 11/02/18 13:09 Blood Blood Culture - Preliminary NO GROWTH AFTER 24 HOURS Resulted 11/02/18 12:53 Blood Blood Culture - Preliminary Gram Positive Cocci Resulted 11/02/18 15:00 Nasal Nares MRSA Culture - Final NO METHICILLIN RESISTANT STAPH AUREUS... Complete 11/02/18 13:20 Urine,Clean Catch Urine Culture - Preliminary NO GROWTH AFTER 24 HOURS Resulted 11/02/18 15:00 Rectum VRE Culture - Final Enterococcus Faecium - Vre Resulted 11/02/18 15:00 Rectum Pending Resulted Laboratory Tests Test 11/04/18 06:20 White Blood Count 6.4 K/UL (4.8-10.8) Red Blood Count 3.81 M/UL (4.20-5.40) L Hemoglobin 11.8 G/DL (12.0-16.0) L Hematocrit 35.9 % (37.0-47.0) L Mean Corpuscular Volume 94 FL (80-99) Mean Corpuscular Hemoglobin 30.9 PG (27.0-31.0) Mean Corpuscular Hemoglobin Concent 32.8 G/DL (32.0-36.0) Red Cell Distribution Width 14.0 % (11.6-14.8) Platelet Count 275 K/UL (150-450) Mean Platelet Volume 5.5 FL (6.5-10.1) L Neutrophils (%) (Auto) 59.8 % (45.0-75.0) Lymphocytes (%) (Auto) 17.8 % (20.0-45.0) L Monocytes (%) (Auto) 12.0 % (1.0-10.0) H Eosinophils (%) (Auto) 8.6 % (0.0-3.0) H Basophils (%) (Auto) 1.9 % (0.0-2.0) Sodium Level 141 MMOL/L (136-145) Potassium Level 3.8 MMOL/L (3.5-5.1) Chloride Level 106 MMOL/L (98-107) Carbon Dioxide Level 30 MMOL/L (21-32) Anion Gap 5 mmol/L (5-15) Blood Urea Nitrogen 14 mg/dL (7-18) Creatinine 0.9 MG/DL (0.55-1.30) Estimat Glomerular Filtration Rate mL/min (>60) Glucose Level 120 MG/DL (74-106) H Calcium Level 8.3 MG/DL (8.5-10.1) L Troponin I 0.504 ng/mL (0.000-0.056) Current Medications Medications (Trade) Dose Ordered Sig/[place] Route PRN Reason Start Time Stop Time Status Last Admin Dose Admin Acetaminophen (Tylenol) 650 mg Q6H PRN ORAL Mild Pain/Temp > 100.5 11/04/18 02:30 12/02/18 02:29 11/04/18 10:41 Al Hydroxide/Mg Hydroxide (Mylanta) 30 ml Q6H PRN ORAL dyspepsia 11/04/18 02:30 12/02/18 02:29 11/04/18 10:38 Apixaban (Eliquis) 2.5 mg BID ORAL 11/04/18 09:00 12/03/18 08:59 11/04/18 10:43 Aspirin (ASA) 81 mg DAILY ORAL 11/04/18 09:00 12/03/18 08:59 11/04/18 10:43 Bisacodyl (Dulcolax) 5 mg DAILYPRN PRN ORAL Constipation 11/04/18 02:30 12/02/18 02:29 Carvedilol (Coreg) 3.125 mg EVERY 12 HOURS ORAL 11/04/18 09:00 12/03/18 20:59 11/04/18 10:42 Docusate Sodium (Colace) 100 mg DAILY ORAL 11/04/18 09:00 12/03/18 08:59 11/04/18 10:43 Famotidine (Pepcid) 20 mg DAILY ORAL 11/04/18 09:00 12/03/18 08:59 11/04/18 10:43 Furosemide (Lasix) 40 mg DAILY IV 11/04/18 09:00 12/04/18 08:59 11/04/18 10:52 Lactobacillus Acidophilus (Culturelle) 1 tab THREE TIMES A DAY ORAL 11/04/18 09:00 12/03/18 08:59 11/04/18 10:43 Lactulose (Cephulac) 30 gm BIDPRN PRN ORAL Constipation 11/04/18 02:30 12/02/18 02:29 Losartan Potassium (Cozaar) 50 mg DAILY ORAL 11/04/18 09:00 12/03/18 08:59 11/04/18 10:42 Magnesium Oxide (Mag-Ox 400mg) 400 mg DAILY ORAL 11/04/18 09:00 12/03/18 08:59 11/04/18 10:42 Meropenem 1 gm/ Sodium Chloride 55 ml @ 110 mls/hr Q12H IVPB 11/04/18 13:00 11/08/18 00:59 Mirtazapine (Remeron) 7.5 mg BEDTIME ORAL 11/04/18 21:00 12/03/18 20:59 Sennosides (Senokot) 8.6 mg DAILY ORAL 11/04/18 09:00 12/03/18 08:59 11/04/18 10:42 Spironolactone (Aldactone) 25 mg DAILY ORAL 11/04/18 09:00 12/04/18 08:59 11/04/18 10:43 Vancomycin HCl (Vanco rx to dose) 1 ea DAILY PRN MISC Per rx protocol 11/04/18 09:00 12/03/18 09:59 Vancomycin HCl 750 mg/Sodium Chloride 275 ml @ 183.333 mls/hr Q24H IVPB 11/04/18 11:00 11/09/18 10:59 Vitamin D (Vitamin D) 2,000 intlu BID ORAL 11/04/18 09:00 12/03/18 08:59 11/04/18 10:39 Jesse Hemphill MD Nov 04, 2018 12:02
--- NOTE | 2018-11-04 13:00 | NUR ---
NURSE NOTES:WOUND CARE NOTES:Pt presented on admission with moisture intertrigo bilat groin.Non-blanchable erythema buttocks. Moisture intertrigo bilat groin resolving .Less erythema noted . Dry flaking skin noted .Pt denied burning or itching. Non-blanchable erythema with elevation in skin temp, induration or tenderness when minimally palpated. Both heels are boggy but blanchable . No other skin concerns noted. Recommendations: Apply Moisture Barrier Paste to groin and buttocks with each incontinence care. Apply [place] Skin BArrier to Both heels. Off-load heels with pillow. Reposition at least every 2hours or as tolerated. Off-load heels with pillow.
[2018-11-04] MEDS: Nitroglycerin Subl 0.4mg tab SL PRN ×2 (13:30→20:55)
--- NOTE | 2018-11-04 13:56 | NUR ---
NURSE NOTES: Patient was complaining of chest and back pain on a scale of 10. Contacted the Dr regarding new chest pain and followed orders to give nitroglycerine. Patient was given x2 tabs nitro and no longer complains of chest pain. Patient still complaining of abdominal pain and lower leg pain. Will continue to monitor.
--- NOTE | 2018-11-04 14:24 | NUR ---
RD ASSESSMENT & RECOMMENDATIONS SEE CARE ACTIVITY FOR COMPLETE ASSESSMENT DAILY ESTIMATED NEEDS: Needs based on Underweight/ 45.5kg 30-35 kcals/kg 1061-7872 total kcals 1-1.5 g protein/kg 46-68 g total protein 25-30 mL/kg 1617-5014 total fluid mLs NUTRITION DIAGNOSIS: Increased kcal/prot intake needs R/T underweight status as evidenced by pt at 87% IBW w/ BMI of 17.8. CURRENT DIET:CARDIAC, soft easy chew PO DIET RECOMMENDATIONS: Liberalized LOW NA diet/ texture as tolerated ADDITIONAL RECOMMENDATIONS: * Calibrated bedscale wt for accurate CBW -> weekly wt monitoring given underweight status * F/up w/ calorie count x 72 hrs * Added Ensure Enlive TID w/ meals ([place] flavor per pt request) * MVI x 1 as supplement * Monitor lytes daily w/ diuretics, replete as needed
--- NOTE | 2018-11-04 19:59 | Cardiac Electrophysiology PN ---
Assessment/Plan Assessment/Plan 1. Troponin leak. The levels are flat. The patient currently does not have any chest pain. The patient is already on aspirin and Coreg 3.125 bid. 2. Atrial fibrillation. Rate is controlled on Coreg. On Eliquis 2.5 mg twice a day. 3. Complete left bundle-branch block. 4. ESBL UTI, on antibiotic. 5. Cardiomyopathy with EF of only 30% to 35 percent, on Coreg, Lasix, and Losartan 50 Subjective Subjective Alert in NAD. No CP or SOB. Objective Last 24 Hour Vital Signs Date Time Temp Pulse Resp B/P (MAP) Pulse Ox O2 Delivery O2 Flow Rate FiO2 11/04/18 16:00 98.2 75 18 115/61 (79) 96 11/04/18 16:00 Room Air 11/04/18 13:30 146/77 11/04/18 12:00 Room Air 11/04/18 12:00 97.5 78 20 146/77 (100) 98 11/04/18 10:42 109/59 11/04/18 10:42 67 109/59 11/04/18 08:00 Room Air 11/04/18 08:00 98.3 81 20 114/64 (81) 97 11/04/18 04:00 Room Air 11/04/18 04:00 97.0 67 20 109/59 (76) 95 11/04/18 00:00 Room Air 11/04/18 00:00 97.5 74 24 143/75 (97) 96 11/03/18 23:25 71 11/03/18 20:30 75 137/70 11/03/18 20:00 Room Air 11/03/18 20:00 97.9 69 18 137/70 (92) 98 Intake and Output 11/03/18 11/04/18 18:59 06:59 Intake Total 660 ml 295 ml Output Total 600 ml Balance 60 ml 295 ml Intake Oral 550 ml 240 ml IV Total 110 ml 55 ml Output Urine Total 600 ml # Voids 2 # Bowel Movements 3 Laboratory Tests Test 11/04/18 06:20 White Blood Count 6.4 K/UL (4.8-10.8) Red Blood Count 3.81 M/UL (4.20-5.40) L Hemoglobin 11.8 G/DL (12.0-16.0) L Hematocrit 35.9 % (37.0-47.0) L Mean Corpuscular Volume 94 FL (80-99) Mean Corpuscular Hemoglobin 30.9 PG (27.0-31.0) Mean Corpuscular Hemoglobin Concent 32.8 G/DL (32.0-36.0) Red Cell Distribution Width 14.0 % (11.6-14.8) Platelet Count 275 K/UL (150-450) Mean Platelet Volume 5.5 FL (6.5-10.1) L Neutrophils (%) (Auto) 59.8 % (45.0-75.0) Lymphocytes (%) (Auto) 17.8 % (20.0-45.0) L Monocytes (%) (Auto) 12.0 % (1.0-10.0) H Eosinophils (%) (Auto) 8.6 % (0.0-3.0) H Basophils (%) (Auto) 1.9 % (0.0-2.0) Sodium Level 141 MMOL/L (136-145) Potassium Level 3.8 MMOL/L (3.5-5.1) Chloride Level 106 MMOL/L (98-107) Carbon Dioxide Level 30 MMOL/L (21-32) Anion Gap 5 mmol/L (5-15) Blood Urea Nitrogen 14 mg/dL (7-18) Creatinine 0.9 MG/DL (0.55-1.30) Estimat Glomerular Filtration Rate mL/min (>60) Glucose Level 120 MG/DL (74-106) H Calcium Level 8.3 MG/DL (8.5-10.1) L Troponin I 0.504 ng/mL (0.000-0.056) Microbiology Date/Time Source Procedure Growth Status 11/02/18 13:09 Blood Blood Culture - Preliminary NO GROWTH AFTER 24 HOURS Resulted 11/02/18 12:53 Blood Blood Culture - Preliminary Gram Positive Cocci Resulted 11/02/18 15:00 Nasal Nares MRSA Culture - Final NO METHICILLIN RESISTANT STAPH AUREUS... Complete 11/02/18 13:20 Urine,Clean Catch Urine Culture - Preliminary NO GROWTH AFTER 24 HOURS Resulted 11/02/18 15:00 Rectum VRE Culture - Final Enterococcus Faecium - Vre Resulted 11/02/18 15:00 Rectum Pending Resulted Objective HEAD AND NECK: Showed no JVD. LUNGS: Clear. CARDIOVASCULAR: Shows irregular S1 and S2 with no gallop or murmur. ABDOMEN: Soft. EXTREMITIES: No pitting edema. Yoni Robbins MD Nov 04, 2018 19:59
--- NOTE | 2018-11-04 20:00 | NUR ---
NURSE NOTES: Received report from TAMRA Pinzon. Patient alert with bouts of forgetfulness. On room air, no signs of distress or labored breathing. IV intact, patent, and infusing TKO. Bed in lowest position with call light in reach. Will continue with plan of care./
--- NOTE | 2018-11-04 20:02 | NUR ---
HAND-OFF: Report given to TAMRA Graves.
--- NOTE | 2018-11-04 20:20 | Cardiology Report ---
APPROVED REPORT EXAM: Two-dimensional and M-mode echocardiogram with Doppler and color Doppler. INDICATION Chest Pain M-Mode DIMENSIONS IVSd1.6 (0.7-1.1cm)Left Atrium (MM)5.0 (1.6-4.0cm) LVDd4.4 (3.5-5.6cm)Aortic Root3.4 (2.0-3.7cm) PWd1.2 (0.7-1.1cm)Aortic Cusp Exc.2.0 (1.5-2.0cm) LVDs3.5 (2.5-4.0cm) PWs1.7 cm Normal left ventricular chamber size. Global left ventricular hypokinesia except the septal wall which is dyskinetic. Left ventricular ejection fraction is estimated to be 30-35%.High e/e' ratio is suggestive of increased intracardiac filling pressure. Mild left ventricular hypertrophy. Large pleural effusion. Mild left atrial enlargement. Right cardiac chamber sizes are within normal limits. Moderate focal aortic valve sclerosis with adequate cusp excursion. Moderatly thickened mitral valve leaflets with reduced excursion. Mild mitral annulus and aortic root calcification. Pulmonic valve not well visualized. Normal tricuspid valve structure. IVC is normal in size with physiological collapse. A color flow and spectral Doppler study was performed and revealed: Mild aortic regurgitation. Severe mitral regurgitation. Mitral inflow velocities indicates possible pseudo normalization pattern implying significant left ventricular diastolic dysfunction (Grade II). Mild tricuspid regurgitation. Tricuspid systolic velocities suggests peak right ventricular systolic pressure of 35 mmHg, consistent with mild pulmonary hypertension. Trace pulmonic regurgitation present.
--- NOTE | 2018-11-04 20:34 | Cardiology Report ---
APPROVED REPORT EKG Measurement Heart [id number] Atrial fibrillation Left axis deviation Left bundle branch block Abnormal ECG
--- NOTE | 2018-11-04 21:12 | General Progress Note ---
Assessment/Plan Assessment/Plan: ESBL uti bacteremia afib increased troponin abdominal pain abx per ID on [employer] cards fup check echo stool softner laxatives dvt and uler prophylaxis Subjective Allergies: Coded Allergies: CEPHALOSPORINS (Verified Allergy, Unknown, 11/02/18) PENICILLINS (Verified Allergy, Unknown, 11/02/18) Subjective comfortable no chest pain or sob decreased abdominal pain Objective Last 24 Hour Vital Signs Date Time Temp Pulse Resp B/P (MAP) Pulse Ox O2 Delivery O2 Flow Rate FiO2 11/04/18 20:55 169/88 11/04/18 20:47 94 169/88 11/04/18 20:00 98.4 94 20 169/88 (115) 99 11/04/18 16:00 98.2 75 18 115/61 (79) 96 11/04/18 16:00 Room Air 11/04/18 13:30 146/77 11/04/18 12:00 Room Air 11/04/18 12:00 97.5 78 20 146/77 (100) 98 11/04/18 10:42 109/59 11/04/18 10:42 67 109/59 11/04/18 08:00 Room Air 11/04/18 08:00 98.3 81 20 114/64 (81) 97 11/04/18 04:00 Room Air 11/04/18 04:00 97.0 67 20 109/59 (76) 95 11/04/18 00:00 Room Air 11/04/18 00:00 97.5 74 24 143/75 (97) 96 11/03/18 23:25 71 Intake and Output 11/03/18 11/04/18 18:59 06:59 Intake Total 660 ml 295 ml Output Total 600 ml Balance 60 ml 295 ml Intake Oral 550 ml 240 ml IV Total 110 ml 55 ml Output Urine Total 600 ml # Voids 2 # Bowel Movements 3 Laboratory Tests 11/04/18 06:20: White Blood Count 6.4, Red Blood Count 3.81L, Hemoglobin 11.8L, Hematocrit 35.9L , Mean Corpuscular Volume 94, Mean Corpuscular Hemoglobin 30.9, Mean Corpuscular Hemoglobin Concent 32.8, Red Cell Distribution Width 14.0, Platelet Count 275, Mean Platelet Volume 5.5L, Neutrophils (%) (Auto) 59.8, Lymphocytes ( %) (Auto) 17.8L, Monocytes (%) (Auto) 12.0H, Eosinophils (%) (Auto) 8.6H, Basophils (%) (Auto) 1.9, Sodium Level 141, Potassium Level 3.8, Chloride Level 106, Carbon Dioxide Level 30, Anion Gap 5, Blood Urea Nitrogen 14, Creatinine 0.9, Estimat Glomerular Filtration Rate , Glucose Level 120H, Calcium Level 8.3L , Troponin I 0.504H Height (Feet): 5 Height (Inches): 3.00 Weight (Pounds): 109 General Appearance: WD/WN, no apparent distress Neck: supple Cardiovascular: irregularly irregular Respiratory/Chest: lungs clear Abdomen: soft Stan Delgado MD Nov 04, 2018 21:12
[2018-11-05] VITALS: BP 133/61
[2018-11-05] MEDS: Meropenem 1 GM in NS 55 ML IVPB SCH ×2 (01:27→12:31)
[2018-11-05 04:00] VITALS: BP 155/86
[2018-11-05] MEDS: Nitroglycerin Subl 0.4mg tab SL PRN (06:36)
--- NOTE | 2018-11-05 07:21 | NUR ---
HAND-OFF: Report given to TAMRA Pinzon..
--- NOTE | 2018-11-05 07:24 | NUR ---
NURSE NOTES: HANDOFF RECEIVED FROM TAMRA CACERES.
[2018-11-05 08:00] VITALS: BP 145/78
--- NOTE | 2018-11-05 09:31 | NUR ---
NURSE NOTES: Patient found sleeping and unresponsive at 8:50 am, doctor came in to do rounds and ordered a head CT stat for patient due to change in condition, patients vitals stable. patient was not responding to voice or touch however when CT arrived patient woke up when the pure wick was removed. Notified about patient awake and responsive and he cancelled the CT. Placed new ordersfor Aspiration precaution and labs. will continue to monitor patient.
[2018-11-05] MEDS: Magnesium Oxide 400mg tab ORAL SCH (09:42)
[2018-11-05] MEDS: Lactobacillus-GG tablet ORAL SCH ×3 (09:42→17:38)
[2018-11-05] MEDS: Docusate 100mg cap ORAL SCH (09:43)
[2018-11-05] MEDS: Sennosides 8.6mg tab ORAL SCH (09:43)
[2018-11-05] MEDS: Aspirin Baby 81mg ORAL SCH (09:43)
[2018-11-05] MEDS: Eliquis 2.5mg tablet ORAL SCH ×2 (09:43→17:39)
[2018-11-05] MEDS: Losartan 50mg tab ORAL SCH (09:43)
[2018-11-05] MEDS: Spironolactone 25mg tab ORAL SCH (09:44)
--- NOTE | 2018-11-05 11:21 | Infectious Diseases Prog Note ---
Assessment/Plan Assessment/Plan antibiotics : vancomycin iv, meropenem A 1. e.coli UTI 2. + blood culture with coag neg staph likely contaminated 3. CHF 4. hypertension 5. dementia P 1. continue meropenem 3 more days 2. d/c iv vancomycin 3. will follow up cultures Subjective Constitutional: Denies: fever, chills Respiratory: Reports: shortness of breath, dry cough Gastrointestinal/Abdominal: Reports: nausea, vomiting - yesterday; Denies: diarrhea Musculoskeletal: Reports: pain Allergies: Coded Allergies: CEPHALOSPORINS (Verified Allergy, Unknown, 11/02/18) PENICILLINS (Verified Allergy, Unknown, 11/02/18) Objective Vital Signs Last 24 Hour Vital Signs Date Time Temp Pulse Resp B/P (MAP) Pulse Ox O2 Delivery O2 Flow Rate FiO2 11/05/18 09:43 145/78 11/05/18 09:43 68 145/78 11/05/18 06:36 155/86 11/05/18 04:00 97.4 76 17 155/86 (109) 94 11/05/18 00:00 97.4 70 18 133/61 (85) 95 11/04/18 21:30 88 163/86 (111) 11/04/18 21:00 Room Air 11/04/18 20:55 169/88 11/04/18 20:47 94 169/88 11/04/18 20:00 98.4 94 20 169/88 (115) 99 11/04/18 16:00 98.2 75 18 115/61 (79) 96 11/04/18 16:00 Room Air 11/04/18 13:30 146/77 11/04/18 12:00 Room Air 11/04/18 12:00 97.5 78 20 146/77 (100) 98 Height (Feet): 5 Height (Inches): 3.00 Weight (Pounds): 109 Respiratory/Chest: lungs clear Cardiovascular: normal rate, regular rhythm, no gallop/murmur Abdomen: soft, non tender Extremities: no edema Microbiology Date/Time Source Procedure Growth Status 11/02/18 13:09 Blood Blood Culture - Preliminary NO GROWTH AFTER 48 HOURS Resulted 11/02/18 12:53 Blood Blood Culture - Final Staph Hominis Ssp Hominis Complete 11/02/18 15:00 Nasal Nares MRSA Culture - Final NO METHICILLIN RESISTANT STAPH AUREUS... Complete 11/02/18 13:20 Urine,Clean Catch Urine Culture - Final NO GROWTH AFTER 48 HOURS Complete 11/02/18 15:00 Rectum VRE Culture - Final Enterococcus Faecium - Vre Complete 11/02/18 15:00 Rectum - Final NO CARBAPENEM-RESISTANT ENTEROBACTERI... Complete Laboratory Tests Test 11/05/18 09:52 Vancomycin Level Trough 9.6 ug/mL (5.0-12.0) Current Medications Medications (Trade) Dose Ordered Sig/[place] Route PRN Reason Start Time Stop Time Status Last Admin Dose Admin Acetaminophen (Tylenol) 650 mg Q6H PRN ORAL Mild Pain/Temp > 100.5 11/04/18 02:30 12/02/18 02:29 11/05/18 10:00 Al Hydroxide/Mg Hydroxide (Mylanta) 30 ml Q6H PRN ORAL dyspepsia 11/04/18 02:30 12/02/18 02:29 11/04/18 18:26 Apixaban (Eliquis) 2.5 mg BID ORAL 11/04/18 09:00 12/03/18 08:59 11/05/18 09:43 Aspirin (ASA) 81 mg DAILY ORAL 11/04/18 09:00 12/03/18 08:59 11/05/18 09:43 Bisacodyl (Dulcolax) 5 mg DAILYPRN PRN ORAL Constipation 11/04/18 02:30 12/02/18 02:29 Carvedilol (Coreg) 3.125 mg EVERY 12 HOURS ORAL 11/04/18 09:00 12/03/18 20:59 11/05/18 09:43 Docusate Sodium (Colace) 100 mg DAILY ORAL 11/04/18 09:00 12/03/18 08:59 11/05/18 09:43 Famotidine (Pepcid) 20 mg DAILY ORAL 11/04/18 09:00 12/03/18 08:59 11/05/18 09:43 Furosemide (Lasix) 40 mg DAILY IV 11/04/18 09:00 12/04/18 08:59 11/05/18 09:44 Lactobacillus Acidophilus (Culturelle) 1 tab THREE TIMES A DAY ORAL 11/04/18 09:00 12/03/18 08:59 11/05/18 09:42 Lactulose (Cephulac) 30 gm BIDPRN PRN ORAL Constipation 11/04/18 02:30 12/02/18 02:29 Losartan Potassium (Cozaar) 50 mg DAILY ORAL 11/04/18 09:00 12/03/18 08:59 11/05/18 09:43 Magnesium Oxide (Mag-Ox 400mg) 400 mg DAILY ORAL 11/04/18 09:00 12/03/18 08:59 11/05/18 09:42 Meropenem 1 gm/ Sodium Chloride 55 ml @ 110 mls/hr Q12H IVPB 11/04/18 13:00 11/08/18 00:59 11/05/18 01:27 Mirtazapine (Remeron) 7.5 mg BEDTIME ORAL 11/04/18 21:00 12/03/18 20:59 11/04/18 20:46 Nitroglycerin (Ntg) 0.4 mg Q5M PRN SL Prn Chest Pain 11/04/18 13:15 12/04/18 13:14 11/05/18 06:36 Sennosides (Senokot) 8.6 mg DAILY ORAL 11/04/18 09:00 12/03/18 08:59 11/05/18 09:43 Spironolactone (Aldactone) 25 mg DAILY ORAL 11/04/18 09:00 12/04/18 08:59 11/05/18 09:44 Vancomycin HCl (Vanco rx to dose) 1 ea DAILY PRN MISC Per rx protocol 11/04/18 09:00 12/03/18 09:59 Vancomycin HCl 1 gm/Dextrose 275 ml @ 183.708 mls/hr Q24H IVPB 11/05/18 12:00 11/10/18 11:59 Vitamin D (Vitamin D) 2,000 intlu BID ORAL 11/04/18 09:00 12/03/18 08:59 11/04/18 18:27 Joe Villa MD Nov 05, 2018 11:21
[2018-11-05 12:00] VITALS: BP 127/65
[2018-11-05] MEDS ORDERED: Vancomycin 1gm/D5W 275ml IVPB SCH ×2 (12:00)
--- NOTE | 2018-11-05 12:09 | Cardiac Electrophysiology PN ---
Assessment/Plan Assessment/Plan 1. Troponin leak. The levels are flat. Denies any chest pain. On aspirin and Coreg 3.125 bid. 2. Atrial fibrillation. On Coreg and Eliquis 2.5 mg twice a day. 3. Complete left bundle-branch block. 4. Cardiomyopathy with EF of only 30% to 35 percent, on Coreg, Lasix, and Losartan 50 5. ESBL UTI, on antibiotic. LAMAR RN Subjective Subjective No CP or SOB. Comfortable in NAD Objective Last 24 Hour Vital Signs Date Time Temp Pulse Resp B/P (MAP) Pulse Ox O2 Delivery O2 Flow Rate FiO2 11/05/18 09:43 145/78 11/05/18 09:43 68 145/78 11/05/18 09:00 Room Air 11/05/18 08:00 97.5 68 18 145/78 (100) 96 11/05/18 06:36 155/86 11/05/18 04:00 97.4 76 17 155/86 (109) 94 11/05/18 00:00 97.4 70 18 133/61 (85) 95 11/04/18 21:30 88 163/86 (111) 11/04/18 21:00 Room Air 11/04/18 20:55 169/88 11/04/18 20:47 94 169/88 11/04/18 20:00 98.4 94 20 169/88 (115) 99 11/04/18 16:00 98.2 75 18 115/61 (79) 96 11/04/18 16:00 Room Air 11/04/18 13:30 146/77 Intake and Output 11/04/18 11/05/18 19:00 07:00 Intake Total 480 ml 550 ml Output Total 450 ml 1300 ml Balance 30 ml -750 ml Intake Oral 480 ml IV Total 550 ml Output Urine Total 450 ml 1300 ml # Voids 3 Laboratory Tests Test 11/05/18 09:52 Vancomycin Level Trough 9.6 ug/mL (5.0-12.0) Microbiology Date/Time Source Procedure Growth Status 11/02/18 13:09 Blood Blood Culture - Preliminary NO GROWTH AFTER 48 HOURS Resulted 11/02/18 12:53 Blood Blood Culture - Final Staph Hominis Ssp Hominis Complete 11/02/18 15:00 Nasal Nares MRSA Culture - Final NO METHICILLIN RESISTANT STAPH AUREUS... Complete 11/02/18 13:20 Urine,Clean Catch Urine Culture - Final NO GROWTH AFTER 48 HOURS Complete 11/02/18 15:00 Rectum VRE Culture - Final Enterococcus Faecium - Vre Complete 11/02/18 15:00 Rectum - Final NO CARBAPENEM-RESISTANT ENTEROBACTERI... Complete Objective HEAD AND NECK: Showed no JVD. LUNGS: Clear. CARDIOVASCULAR: Shows irregular S1 and S2 with no gallop or murmur. ABDOMEN: Soft. EXTREMITIES: No pitting edema. Yoni Robbins MD Nov 05, 2018 12:09
[2018-11-05] MEDS: Vitamin D 1000 IU Tab ORAL SCH ×2 (12:31→17:38)
--- NOTE | 2018-11-05 15:39 | Consultation ---
Consult Note Assessment/Plan DICT # [id number] Heath Brenner MD Nov 05, 2018 15:39
[2018-11-05 16:00] VITALS: BP 122/67
--- NOTE | 2018-11-05 16:12 | Consultation ---
Consult Note Consult Note NEUROLOGY CONSULTATION: Full note dictated #[id number] 82-year-old, right-handed, lady, with past history of multiple medical problems including hypertension, dyslipidemia, lumbosacral spinal stenosis, cerebrovascular disease with left paresis, depression, peptic ulcer disease, statin-induced myopathy, coronary artery disease status post myocardial infarction, chronic atrial fibrillation, prior episodes of pneumonia , prior episodes of urinary tract infections, prior episodes of sepsis, and dementia. She was hospitalized for a few day history of increased confusion disorientation agitation and was found to have a urinary tract infection. She has been treated for the urinary tract infection but continues to have an alteration in her mental state and thus this consultation was requested. At this point in time she feels relatively well. She however has significant cognitive and motor problems. ON EXAMINATION: Oriented to self and [facility]. Memory: 3/3-0, 0/3-1 and 3 even on the third trial. Able to remember presidents Trump and Obama only. Mathematical skills impaired. Visual-spatial function impaired. Speech dysarthric. Language anomic. Left greater than right seventh central facial paresis. Bilateral ankle cord contractures and left finger contractures. Motor function difficult to assess because of varying degrees of effort. Definite left greater than right quadriparesis. Able to discern between pinprick and light touch. Globally absent deep tendon reflexes. Plantar response flexor on right and extensor on left IMPRESSION: Patient with multiple medical problems who came in with a urinary tract infection and altered mental state. History and examination associated with laboratory data consistent with toxic metabolic encephalopathy superimposed on underlying structural brain disease related to cerebrovascular disease involving right hemisphere more than left. RECOMMENDATIONS: Agree with management thus far Aggressive treatment of infectious process. Correct toxic metabolic imbalances. CT scan of brain without contrast to exclude acute intracranial pathology. EEG to evaluate degree and type of encephalopathy. Laboratory test to evaluate patient for other treatable causes of encephalopathy. Observe closely. Polo Stewart M.D., M.S.P.H. Polo Stewart MD Nov 05, 2018 16:12
--- NOTE | 2018-11-05 18:56 | NUR ---
NURSE NOTES: patient complaining of pain 10/10 in the abdomen and buttocks, gave tylenol and patient still says pain is 10/10 called doctor leti he told me to put in orders for lactulose 30mg BID, but patient currently has that order in the [facility]. he also said to call GI doctor, will follow up with GI doctor.
--- NOTE | 2018-11-05 19:02 | NUR ---
CHARGE NURSe NOTE: Pt is scheduled for EEG. 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 on his way to do the procedure.
[2018-11-05 20:00] VITALS: BP 133/68
[2018-11-05] MEDS ORDERED: Lactulose 20gm/30ml UDC ORAL SCH ×2 (20:15→21:00)
--- NOTE | 2018-11-05 20:21 | NUR ---
HAND-OFF: Report given to TAMRA Matias.
--- NOTE | 2018-11-05 20:31 | NUR ---
NURSE NOTES: contacted Dr Crawford per DR Delgado's instructions. He gave orders for 60ml Lactulose PO now. Updated auger operator nurse Florencio, who put the orders in for me.
--- NOTE | 2018-11-05 21:15 | Consultation ---
DATE OF CONSULTATION: 11/05/2018 PULMONARY CONSULTATION CONSULTING PHYSICIAN: Heath Brenner M.D. REFERRING PHYSICIAN: Stan Delgado M.D. REASON FOR CONSULTATION: Cough and shortness of breath. HISTORY OF PRESENT ILLNESS: The patient is an 82-year-old female, custodial resident with history of CVA, AFib, hypertension, prior DVT, admitted with ESBL UTI and decompensated heart failure. She notes some shortness of breath and cough. No wheezing. No fevers or chills. No chest pain. No PND or orthopnea. PAST MEDICAL HISTORY: Prior DVT, PE, hypertension, hyperlipidemia, AFib, on anticoagulation, peripheral neuropathy, anemia, spinal stenosis, left-sided paresis, CVA, depression, peptic ulcer disease, cholelithiasis, dementia, prior statin-induced myopathy and urosepsis, osteoarthritis, degenerative disc disease, CAD status post VA, and CHF. MEDICATIONS: Prior to admission medications reviewed. Current medications reviewed. ALLERGIES: Penicillin and cephalosporin. SOCIAL HISTORY: [facility] resident. No known tobacco, alcohol, or drug use. PHYSICAL EXAMINATION: VITAL SIGNS: Temperature is 97.5, pulse 68, blood pressure 144/78, respiratory rate 18, and saturating 98% on room air. GENERAL: She is an elderly demented female, in no acute distress. Awake, alert, and oriented x3. HEENT: Normocephalic and atraumatic. Oropharynx is clear with moist mucous membranes. NECK: Supple without lymphadenopathy or JVD. CHEST: Scattered coarse breath sounds. HEART: Regular rate and rhythm. ABDOMEN: Soft, nontender, and nondistended. EXTREMITIES: No cyanosis, clubbing or edema. ANCILLARY DATA: White count 6.4, hemoglobin 11.8, and platelet count 275,000. Sodium 141, potassium 3.8, chloride 106, bicarbonate 30, BUN 14, creatinine 0.9, glucose 120, and calcium 8.3. Troponin 0.468. BNP 13,680. Urinalysis, positive nitrites and 1+ leukocyte esterase. CULTURES: Initial blood culture with Staph hominis. Second blood culture, no growth. Urine culture, no growth. Enterococcus VRE colonization. DIAGNOSTIC DATA: Echocardiogram, normal LV chamber, global left ventricular hypokinesis with dyskinetic septal wall, LVEF of 30 to 35 percent, mild LVH, large left pleural effusion, mild left atrial enlargement, right cardiac chamber size within normal limits, moderate focal aortic sclerosis, moderately thickened mitral valve, mild mitral valve anulus root calcification, pulmonic valve not well visualized, IVC normal size with physiologic collapse, diastolic dysfunction, and tricuspid pressure of 35. A CT of the abdomen and pelvis shows moderate bilateral pleural effusions, cholelithiasis, arterial vascular disease, atrophic kidneys, DJD of the spine and scoliosis, uterine fibroids, GE junction surgery, and old pelvic fracture. Chest x-ray, pulmonary vascular congestion and [id number] bilateral effusions. ASSESSMENT: The patient is an 82-year-old female, custodial resident, with a history of AFib, CHF, and multiple medical problems, admitted with ESBL UTI and bacteremia, which may be contamination, decompensated heart failure, and troponinemia. She has moderate bilateral pleural effusions, which are likely secondary to her heart failure. She is fairly stable from a respiratory standpoint. PROBLEM LIST: 1. ESBL UTI. 2. Staphylococcal bloodstream infection, likely contaminant. 3. Congestive heart failure with EF of 35%, admitted with decompensated heart failure. 4. Complete left bundle branch block. 5. AFib, on anticoagulation. 6. Troponinemia. 7. Bilateral pleural effusions, likely secondary to [employer] forces. 8. History of DVT and PE in the past. 9. Hypertension, hyperlipidemia, peptic ulcer disease, peripheral neuropathy, CVA, hemiparesis, and GERD. TREATMENT PLAN: 1. Optimize pulmonary hygiene/mobilize as tolerated. 2. P.r.n. O2. 3. Monitor volumes and renal function, cautious diuresis as able. 4. Continue antibiotics per ID. 5. Aspiration precautions. 6. Swallow evaluation. 7. I will hold off on thoracentesis, but we will monitor effusions, if persistent effusions in the future, we can consider therapeutic and diagnostic thoracentesis at the [facility]. 8. I would repeat chest imaging as an outpatient once the patient is euvolemic and consider cross-sectional imaging of the chest at that time. 9. The patient is DNR/DNI. Dr. Delgado, thank you for allowing me to assist in the care of your patient. If I may be of any assistance in the future, please do not hesitate to ask. Heath Brenner M.D. DR: BARBER JOB#: [id number] CC:
--- NOTE | 2018-11-05 21:58 | General Progress Note ---
Assessment/Plan Assessment/Plan: GAssessment - Anorexia - malnutrition - low albumin - depression and dementia, likely the underlying cause of poor po - GERD Recommendations - continue H2B - Low dose remeron qhs - can add other agents if Remeron ineffective - Boost/Ensure - Calorie count - PRN laxative Subjective Allergies: Coded Allergies: CEPHALOSPORINS (Verified Allergy, Unknown, 11/02/18) PENICILLINS (Verified Allergy, Unknown, 11/02/18) Subjective Feels OK/same on low dose Remeron last night still with poor appetite Objective Last 24 Hour Vital Signs Date Time Temp Pulse Resp B/P (MAP) Pulse Ox O2 Delivery O2 Flow Rate FiO2 11/05/18 20:34 82 124/68 11/05/18 16:00 98.5 78 20 122/67 (85) 95 11/05/18 12:00 98.1 85 18 127/65 (85) 95 11/05/18 09:43 145/78 11/05/18 09:43 68 145/78 11/05/18 09:00 Room Air 11/05/18 08:00 97.5 68 18 145/78 (100) 96 11/05/18 06:36 155/86 11/05/18 04:00 97.4 76 17 155/86 (109) 94 11/05/18 00:00 97.4 70 18 133/61 (85) 95 Intake and Output 11/04/18 11/05/18 18:59 06:59 Intake Total 480 ml 550 ml Output Total 450 ml 1300 ml Balance 30 ml -750 ml Intake Oral 480 ml IV Total 550 ml Output Urine Total 450 ml 1300 ml # Voids 3 Laboratory Tests 11/05/18 09:50: Erythrocyte Sedimentation Rate 28, Hemoglobin A1c 5.1, Vitamin B12 Level 264, Vitamin D 25-Hydroxy [Pending], 25-Hydroxy Vitamin D2 [Pending], 25-Hydroxy Vitamin D3 [Pending], Folate 8.0L, Thyroid Stimulating Hormone (TSH) 1.740, Rapid Plasma Reagin [Pending] 11/05/18 09:52: Vancomycin Level Trough 9.6 Height (Feet): 5 Height (Inches): 3.00 Weight (Pounds): 109 Objective Thin elderly WW NCAT supple CTA RRR abd soft ND NT no edema Mare Crawford MD Nov 05, 2018 21:58
--- NOTE | 2018-11-05 22:00 | NUR ---
NURSE NOTES: Pt is in bed, awake and verbal. Pt complains of abdominal pain. Lactulose 40G given as ordered by Dr. donis. EEG done. Pt will be turned q2hrs. HOB elevated. Bed locked low in position,side rails up and call light within reach. Fall precaution implemented. Pt will be monitored.
--- NOTE | 2018-11-05 22:15 | Consultation ---
DATE OF CONSULTATION: 11/05/2018 NEUROLOGY CONSULTATION CONSULTING PHYSICIAN: Polo Stewart M.D. REQUESTING PHYSICIAN: Stan Delgado M.D. HISTORY: Ms. 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 In addition, she also has a history of cognitive decline labeled dementia. She was hospitalized a few days ago for increasing confusion, disorientation, agitation, and failure to thrive at her fci. As a result of that, she was brought into the [facility] emergency room and admitted for a urinary tract infection. She has been treated for the urinary tract infection and continues to have an alteration in her mental state and thus this consultation was requested. At this point in time, she feels relatively well. She, however, has significant cognitive and motor problems. It is unclear if these are all old or she may have a component of new dysfunction. PAST MEDICAL HISTORY: Significant for hypertension, dyslipidemia, lumbosacral spinal stenosis, cerebrovascular disease with left greater than right paresis, depression, peptic ulcer disease, statin-induced myopathy, coronary artery disease - status post myocardial infarction, chronic atrial fibrillation, prior episodes of pneumonia, prior episodes of UTIs, prior episodes of sepsis, and dementia. FAMILY HISTORY: Significant for high blood pressure in other family members. PERSONAL HISTORY: Home: She lives in a fci and has been living there for the last 12 years. 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 Habits: There is no history of alcohol, tobacco, or illicit drug use. PRESENT MEDICATIONS: Include vancomycin, mirtazapine, nitroglycerin, meropenem, Eliquis, aspirin, Coreg, DSS, Pepcid, Lasix, lactobacillus, losartan, magnesium oxide, Senokot, Aldactone, vitamin D, Tylenol p.r.n., Dulcolax p.r.n., lactulose p.r.n., and aluminium hydroxide p.r.n. PHYSICAL EXAMINATION: GENERAL: She is a well-developed, well-nourished, but lean lady, lying in bed, in no acute distress. VITAL SIGNS: Pulse 65/minute, blood pressure 127/65 mmHg, respirations 18/minute, and temperature 98.1 degrees Fahrenheit. HEAD: Normocephalic and atraumatic. EENT: Examination benign. NECK: No neck rigidity was observed. NEUROLOGICAL EXAMINATION: MENTAL STATUS EXAMINATION: She was awake and alert. She was oriented to self and "[facility]. She had no idea what the date, month, or year was. She was able to recall 3/3 words immediately, but could not remember any of them in 1 minute and 3 minutes even on the third trial. She was able to remember Presidents, Trump and Obama, but could not remember presidents prior to that. Her mathematical skills were significantly impaired. Her visuospatial function was also significantly impaired. SPEECH: She had a mild dysarthria. LANGUAGE: She has an anomia for low and mid frequency words. CRANIAL NERVE EXAMINATION: II: The visual delgado were intact to confrontation. III, IV & : The external ocular movements were full and the pupils 3 mm in diameter, equal, round, regular, and reactive to light. V: She had normal facial sensations, and the temporales, masseters, and pterygoids functioned normally. VII: She had a left seventh central facial paresis. VIII: She was able to hear and had no nystagmus. IX: The palate moved symmetrically on phonation. X: She had no hoarseness of voice. XI: The sternocleidomastoids and trapezii functioned normally. XII: The tongue was in the midline without any fasciculations or atrophy. MOTOR SYSTEM: The tone was increased in all four extremities with spasticity. Examination of muscle mass revealed generalized muscle wasting. In addition, she also had bilateral ankle cord and left finger flexor contractures. Examination of power was difficult to assess because of varying degrees of effort. She, however, had a definite quadriparesis involving the left side more than the right. SENSORY EXAMINATION: She was able to discern between pinprick and light touch. She had problems with other sensory modalities. REFLEXES: 0 at the biceps, triceps, brachioradialis, knees, and ankles. The plantar response was flexor on the right and extensor on the left. COORDINATION: Gviamj-oa-fmyo testing was performed with mild difficulty, but was not dysmetric. She was unable to perform awog-qg-ntaq testing. STANCE & GAIT: Could not be tested. DIAGNOSTIC IMPRESSION: 1. Ms. Kiki Garsia is an 82-year-old, right-handed, lady, with a past history of multiple medical problems, who was hospitalized for increased confusion, disorientation, agitation, and failure to thrive, and was found to have a urinary tract infection. The infection has been treated and she has improved, but still continues to be altered compared to her baseline with regard to her mental state. 2. On neurological examination, at this time, she does have problems with orientation, recent and remote memory, visuospatial function, higher cognitive function, and language. She also has a left greater than right VII central facial paresis, generalized muscle wasting with bilateral ankle cord contractures and the left finger flexor contractures, weakness more marked on the left than on the right, globally absent deep tendon reflexes, and an extensor plantar response on the left side. 3. Laboratory data obtained thus far have revealed that she was anemic with a hemoglobin of 11.8 G. Her blood sugar was elevated at 120. Her calcium was minimally low at 8.3. Her troponins have been high with the last troponin measured at 0.504. Her proBNP is elevated at 13,618. Her albumin is low at 3.1. Her urinalysis reveals 1+ leukocyte esterase, 0-2 red blood cells, and 30-40 white blood cells per high- power field. 4. The patient's history, neurological examination, and laboratory data are most consistent with a toxic metabolic encephalopathy, superimposed on underlying structural brain disease related to cerebrovascular disease involving the right hemisphere more than the left. RECOMMENDATIONS: 1. Agree with management thus far. 2. Continue aggressive treatment of infectious process. 3. Continue to correct toxic metabolic imbalances. 4. A CT scan of the brain without contrast will be ordered to evaluate the patient for acute intracranial pathology. 5. An EEG will be ordered to evaluate the patient for the degree and type of encephalopathy. 6. The patient should be worked up thoroughly for other treatable causes of encephalopathy with in addition to the laboratory tests already done a B12 level, folate level, vitamin D level, ESR, RPR, glycohemoglobin, Westergren sedimentation rate, and TSH. 7. The patient will be observed closely and depending on how she fares over the next day or so, further recommendations will be given. Thank you for entrusting me with the care of Ms. Garsia. I shall follow her with you. Polo Stewart M.D., M.S.P.H. DR: FRANCI JOB#: [id number] MTDJustina
[2018-11-06] VITALS: BP 158/67
[2018-11-06] MEDS: Meropenem 1 GM in NS 55 ML IVPB SCH ×2 (02:32→13:47)
--- NOTE | 2018-11-06 02:50 | NUR ---
NURSE NOTES: Pt is in bed, asleep. No acute distress noted. EEG report in the chart.
[2018-11-06 04:00] VITALS: BP 159/58
--- NOTE | 2018-11-06 07:05 | NUR ---
HAND-OFF: Report given to TAMRA Chan.
[2018-11-06 07:13] LABS: EOSINOPHILS % (AUTO) 6.5 % (0.0-3.0); HEMATOCRIT 38.8 % (37.0-47.0); HEMOGLOBIN 12.5 G/DL (12.0-16.0); MEAN CORPUSCULAR VOLUME 94 FL (80-99); MONOCYTES % (AUTO) 11.4 % (1.0-10.0); PLATELET COUNT 291 K/UL (150-450); RED BLOOD COUNT 4.12 M/UL (4.20-5.40); RED CELL DISTRIBUTION WIDTH 13.6 % (11.6-14.8); WHITE BLOOD COUNT 6.5 K/UL (4.8-10.8)
--- NOTE | 2018-11-06 07:19 | NUR ---
NURSE NOTES: Received report from TAMRA Matias. Pt in bed, awake, talkative, assisted pt with breakfast tray, no distress noted, bed in lowest position, call light within reach.
[2018-11-06 07:44] LABS: ANION GAP 8 mmol/L (5-15); BLOOD UREA NITROGEN 27 mg/dL (7-18); CALCIUM 8.9 MG/DL (8.5-10.1); CARBON DIOXIDE 32 MMOL/L (21-32); CHLORIDE 106 MMOL/L (98-107); CREATININE 0.8 MG/DL (0.55-1.30); SODIUM 146 MMOL/L (136-145)
[2018-11-06 08:00] VITALS: BP 150/63
[2018-11-06] MEDS: Docusate 100mg cap ORAL SCH (09:00)
[2018-11-06] MEDS: Lactulose 20gm/30ml UDC ORAL SCH ×2 (09:00→17:35)
[2018-11-06] MEDS: Sennosides 8.6mg tab ORAL SCH (09:00)
--- NOTE | 2018-11-06 09:05 | General Progress Note ---
Assessment/Plan Assessment/Plan: GAssessment - Anorexia - malnutrition - low albumin - depression and dementia, likely the underlying cause of poor po - GERD Recommendations - continue H2B - Low dose remeron qhs - can add other agents if Remeron ineffective - Boost/Ensure - Calorie count - PRN laxative Subjective Allergies: Coded Allergies: CEPHALOSPORINS (Verified Allergy, Unknown, 11/02/18) PENICILLINS (Verified Allergy, Unknown, 11/02/18) Subjective Feels OK/same on low dose Remeron still with poor appetite Objective Last 24 Hour Vital Signs Date Time Temp Pulse Resp B/P (MAP) Pulse Ox O2 Delivery O2 Flow Rate FiO2 11/06/18 08:00 98.4 69 17 150/63 (92) 97 11/06/18 04:00 98.2 68 18 159/58 (91) 96 11/06/18 00:00 98.1 88 18 158/67 (97) 96 11/05/18 21:00 Room Air 11/05/18 20:34 82 124/68 11/05/18 20:00 98.4 82 16 133/68 (89) 95 11/05/18 16:00 98.5 78 20 122/67 (85) 95 11/05/18 12:00 98.1 85 18 127/65 (85) 95 11/05/18 09:43 145/78 11/05/18 09:43 68 145/78 Intake and Output 11/05/18 11/06/18 19:00 07:00 Intake Total 400 ml 295 ml Output Total 800 ml Balance -400 ml 295 ml Intake Oral 400 ml 240 ml IV Total 55 ml Output Urine Total 800 ml # Voids 3 Laboratory Tests 11/05/18 09:50: Erythrocyte Sedimentation Rate 28, Hemoglobin A1c 5.1, Vitamin B12 Level 264, Vitamin D 25-Hydroxy [Pending], 25-Hydroxy Vitamin D2 [Pending], 25-Hydroxy Vitamin D3 [Pending], Folate 8.0L, Thyroid Stimulating Hormone (TSH) 1.740, Rapid Plasma Reagin Non reactive 11/05/18 09:52: Vancomycin Level Trough 9.6 11/06/18 05:21: White Blood Count 6.5, Red Blood Count 4.12L, Hemoglobin 12.5, Hematocrit 38.8, Mean Corpuscular Volume 94, Mean Corpuscular Hemoglobin 30.5, Mean Corpuscular Hemoglobin Concent 32.4, Red Cell Distribution Width 13.6, Platelet Count 291, Mean Platelet Volume 5.6L, Neutrophils (%) (Auto) 52.0, Lymphocytes (%) (Auto) 28.0, Monocytes (%) (Auto) 11.4H, Eosinophils (%) (Auto) 6.5H, Basophils (%) ( Auto) 2.0, Sodium Level 146H, Potassium Level 4.0, Chloride Level 106, Carbon Dioxide Level 32, Anion Gap 8, Blood Urea Nitrogen 27H, Creatinine 0.8, Estimat Glomerular Filtration Rate , Glucose Level 115H, Calcium Level 8.9, Troponin I 0.427H, Pro-B-Type Natriuretic Peptide 8112H Height (Feet): 5 Height (Inches): 3.00 Weight (Pounds): 100 Objective Thin elderly WW NCAT supple CTA RRR abd soft ND NT no edema Mare Crawford MD Nov 06, 2018 09:05
[2018-11-06] MEDS: Aspirin Baby 81mg ORAL SCH (09:10)
[2018-11-06] MEDS: Magnesium Oxide 400mg tab ORAL SCH (09:10)
[2018-11-06] MEDS: Losartan 50mg tab ORAL SCH (09:10)
[2018-11-06] MEDS: Eliquis 2.5mg tablet ORAL SCH ×2 (09:10→17:37)
[2018-11-06] MEDS: Vitamin D 1000 IU Tab ORAL SCH ×2 (09:10→17:37)
[2018-11-06] MEDS: Lactobacillus-GG tablet ORAL SCH ×3 (09:10→17:37)
[2018-11-06] MEDS: Spironolactone 25mg tab ORAL SCH (09:10)
--- NOTE | 2018-11-06 09:57 | Diagnostic Imaging Report ---
Indication: Headache Technique: Contiguous 5 mm thick transaxial imaging of the head obtained in a Siemens Sensation [address] scanner. Soft tissue and bone windows generated. Automatic Exposure Control was utilized. Total Dose length Product (DLP): 1354.[address] Dose Index Volume (CTDIvol): 70.38 mGy Comparison: 12/31/2006 Findings: There is moderate prominence of the ventricles, basal cisterns, and cerebral sulci consistent with atrophy. Moderate, nonspecific, white matter hypoattenuation is noted throughout the brain consistent with chronic small vessel disease. There is no midline shift, edema, acute hemorrhage, mass effect, or abnormal extra-axial fluid collections. Bones are unremarkable. Impression: No acute intracranial bleed, mass effect or edema. Moderate atrophy of the brain. Evidence of chronic small vessel disease involving white matter tracts. The CT scanner at [facility] is accredited by the [employer] and the scans are performed using dose optimization techniques as appropriate to a performed exam including Automatic Exposure control.
--- NOTE | 2018-11-06 10:19 | NUR ---
NURSE NOTES: Left message for Dr. Delgado's office to have MD call [facility] regarding BUN 27 and Na 146, RN will continue to encourage pt to increase PO fluids
[2018-11-06] MEDS ORDERED: LORazepam 1mg tab ORAL PRN (10:45)
--- NOTE | 2018-11-06 11:20 | Infectious Diseases Prog Note ---
Assessment/Plan Assessment/Plan antibiotics : meropenem A 1. e.coli UTI 2. + blood culture with coag neg staph likely contaminated 3. CHF 4. hypertension 5. dementia P 1. continue meropenem 2 more days 2. will follow up cultures Subjective Constitutional: Denies: fever, chills Respiratory: Reports: shortness of breath, dry cough Gastrointestinal/Abdominal: Reports: nausea, diarrhea - decreased; Denies: vomiting Musculoskeletal: Reports: pain Allergies: Coded Allergies: CEPHALOSPORINS (Verified Allergy, Unknown, 11/02/18) PENICILLINS (Verified Allergy, Unknown, 11/02/18) Objective Vital Signs Last 24 Hour Vital Signs Date Time Temp Pulse Resp B/P (MAP) Pulse Ox O2 Delivery O2 Flow Rate FiO2 11/06/18 09:10 150/63 11/06/18 09:10 69 150/63 11/06/18 09:00 Room Air 11/06/18 08:00 98.4 69 17 150/63 (92) 97 11/06/18 04:00 98.2 68 18 159/58 (91) 96 11/06/18 00:00 98.1 88 18 158/67 (97) 96 11/05/18 21:00 Room Air 11/05/18 20:34 82 124/68 11/05/18 20:00 98.4 82 16 133/68 (89) 95 11/05/18 16:00 98.5 78 20 122/67 (85) 95 11/05/18 12:00 98.1 85 18 127/65 (85) 95 Height (Feet): 5 Height (Inches): 3.00 Weight (Pounds): 100 Respiratory/Chest: lungs clear Cardiovascular: normal rate, regular rhythm, no gallop/murmur Abdomen: soft, non tender Extremities: no edema Laboratory Tests Test 11/06/18 05:21 White Blood Count 6.5 K/UL (4.8-10.8) Red Blood Count 4.12 M/UL (4.20-5.40) L Hemoglobin 12.5 G/DL (12.0-16.0) Hematocrit 38.8 % (37.0-47.0) Mean Corpuscular Volume 94 FL (80-99) Mean Corpuscular Hemoglobin 30.5 PG (27.0-31.0) Mean Corpuscular Hemoglobin Concent 32.4 G/DL (32.0-36.0) Red Cell Distribution Width 13.6 % (11.6-14.8) Platelet Count 291 K/UL (150-450) Mean Platelet Volume 5.6 FL (6.5-10.1) L Neutrophils (%) (Auto) 52.0 % (45.0-75.0) Lymphocytes (%) (Auto) 28.0 % (20.0-45.0) Monocytes (%) (Auto) 11.4 % (1.0-10.0) H Eosinophils (%) (Auto) 6.5 % (0.0-3.0) H Basophils (%) (Auto) 2.0 % (0.0-2.0) Sodium Level 146 MMOL/L (136-145) H Potassium Level 4.0 MMOL/L (3.5-5.1) Chloride Level 106 MMOL/L (98-107) Carbon Dioxide Level 32 MMOL/L (21-32) Anion Gap 8 mmol/L (5-15) Blood Urea Nitrogen 27 mg/dL (7-18) H Creatinine 0.8 MG/DL (0.55-1.30) Estimat Glomerular Filtration Rate mL/min (>60) Glucose Level 115 MG/DL (74-106) H Calcium Level 8.9 MG/DL (8.5-10.1) Troponin I 0.427 ng/mL (0.000-0.056) Pro-B-Type Natriuretic Peptide 8112 pg/mL (0-125) H Current Medications Medications (Trade) Dose Ordered Sig/[place] Route PRN Reason Start Time Stop Time Status Last Admin Dose Admin Acetaminophen (Tylenol) 650 mg Q6H PRN ORAL Mild Pain/Temp > 100.5 11/04/18 02:30 12/02/18 02:29 11/06/18 10:40 Al Hydroxide/Mg Hydroxide (Mylanta) 30 ml Q6H PRN ORAL dyspepsia 11/04/18 02:30 12/02/18 02:29 11/05/18 17:38 Apixaban (Eliquis) 2.5 mg BID ORAL 11/04/18 09:00 12/03/18 08:59 11/06/18 09:10 Aspirin (ASA) 81 mg DAILY ORAL 11/04/18 09:00 12/03/18 08:59 11/06/18 09:10 Bisacodyl (Dulcolax) 5 mg DAILYPRN PRN ORAL Constipation 11/04/18 02:30 12/02/18 02:29 Carvedilol (Coreg) 3.125 mg EVERY 12 HOURS ORAL 11/04/18 09:00 12/03/18 20:59 11/06/18 09:10 Docusate Sodium (Colace) 100 mg DAILY ORAL 11/04/18 09:00 12/03/18 08:59 11/05/18 09:43 Escitalopram Oxalate (Lexapro) 10 mg DAILY ORAL 11/06/18 10:45 12/06/18 10:44 11/06/18 10:41 Famotidine (Pepcid) 20 mg DAILY ORAL 11/04/18 09:00 12/03/18 08:59 11/06/18 09:10 Furosemide (Lasix) 40 mg DAILY IV 11/04/18 09:00 12/04/18 08:59 11/06/18 09:11 Lactobacillus Acidophilus (Culturelle) 1 tab THREE TIMES A DAY ORAL 11/04/18 09:00 12/03/18 08:59 11/06/18 09:10 Lactulose (Cephulac) 30 gm BID ORAL 11/06/18 09:00 12/02/18 02:29 Lorazepam (Ativan) 1 mg Q6H PRN ORAL For Anxiety 11/06/18 10:45 11/13/18 10:44 Losartan Potassium (Cozaar) 50 mg DAILY ORAL 11/04/18 09:00 12/03/18 08:59 11/06/18 09:10 Magnesium Oxide (Mag-Ox 400mg) 400 mg DAILY ORAL 11/04/18 09:00 12/03/18 08:59 11/06/18 09:10 Meropenem 1 gm/ Sodium Chloride 55 ml @ 110 mls/hr Q12H IVPB 11/04/18 13:00 11/08/18 23:59 11/06/18 02:32 Mirtazapine (Remeron) 7.5 mg BEDTIME ORAL 11/04/18 21:00 12/03/18 20:59 11/05/18 20:33 Nitroglycerin (Ntg) 0.4 mg Q5M PRN SL Prn Chest Pain 11/04/18 13:15 12/04/18 13:14 11/05/18 06:36 Sennosides (Senokot) 8.6 mg DAILY ORAL 11/04/18 09:00 12/03/18 08:59 11/05/18 09:43 Spironolactone (Aldactone) 25 mg DAILY ORAL 11/04/18 09:00 12/04/18 08:59 11/06/18 09:10 Vitamin D (Vitamin D) 2,000 intlu BID ORAL 11/04/18 09:00 12/03/18 08:59 11/06/18 09:10 Joe Villa MD Nov 06, 2018 11:20
[2018-11-06 12:00] VITALS: BP 148/68
--- NOTE | 2018-11-06 12:36 | Pulmonology Progress Note ---
Assessment/Plan Problems: (1) UTI due to extended-spectrum beta lactamase (ESBL) producing Escherichia coli (2) CHF exacerbation (3) Elevated troponin (4) Positive blood culture Assessment/Plan ASSESSMENT: The patient is an 82-year-old female, [facility] resident, with a history of AFib, CHF, and multiple medical problems, admitted with ESBL UTI and bacteremia, which may be contamination, decompensated heart failure, and troponinemia. She has moderate bilateral pleural effusions, which are likely secondary to her heart failure. She is fairly stable from a respiratory standpoint. PROBLEM LIST: 1. ESBL UTI. 2. Staphylococcal bloodstream infection, likely contaminant. 3. Congestive heart failure with EF of 35%, admitted with decompensated heart failure. 4. Complete left bundle branch block. 5. AFib, on anticoagulation. 6. Troponinemia. 7. Bilateral pleural effusions, likely secondary to [place] forces. 8. History of DVT and PE in the past. 9. Hypertension, hyperlipidemia, peptic ulcer disease, peripheral neuropathy, CVA, hemiparesis, and GERD. TREATMENT PLAN: 1. Optimize pulmonary hygiene/mobilize as tolerated. 2. P.r.n. O2. 3. Monitor volumes and renal function, cautious diuresis as able. 4. Continue antibiotics per ID. 5. Aspiration precautions. 6. Swallow evaluation. 7. I will hold off on thoracentesis, but we will monitor effusions, if persistent effusions in the future, we can consider therapeutic and diagnostic thoracentesis at the [facility]. 8. I would repeat chest imaging as an outpatient once the patient is euvolemic and consider cross-sectional imaging of the chest at that time. 9. The patient is DNR/DNI. Subjective Allergies: Coded Allergies: CEPHALOSPORINS (Verified Allergy, Unknown, 11/02/18) PENICILLINS (Verified Allergy, Unknown, 11/02/18) Subjective AFVSS on RA No cough no SOB no FC no CP Confused, neuro eval noted Objective Last 24 Hour Vital Signs Date Time Temp Pulse Resp B/P (MAP) Pulse Ox O2 Delivery O2 Flow Rate FiO2 11/06/18 11:10 98.4 11/06/18 09:10 150/63 11/06/18 09:10 69 150/63 11/06/18 09:00 Room Air 11/06/18 08:00 98.4 69 17 150/63 (92) 97 11/06/18 04:00 98.2 68 18 159/58 (91) 96 11/06/18 00:00 98.1 88 18 158/67 (97) 96 11/05/18 21:00 Room Air 11/05/18 20:34 82 124/68 11/05/18 20:00 98.4 82 16 133/68 (89) 95 11/05/18 16:00 98.5 78 20 122/67 (85) 95 Intake and Output 11/05/18 11/06/18 19:00 07:00 Intake Total 400 ml 295 ml Output Total 800 ml Balance -400 ml 295 ml Intake Oral 400 ml 240 ml IV Total 55 ml Output Urine Total 800 ml # Voids 3 General Appearance: no acute distress, other - confused HEENT: normocephalic, atraumatic Respiratory/Chest: chest wall non-tender, lungs clear, normal breath sounds, no respiratory distress, no accessory muscle use Cardiovascular: normal peripheral pulses, normal rate, regular rhythm Abdomen: normal bowel sounds, soft, non tender, no organomegaly, non distended , no mass Extremities: no cyanosis, no clubbing, no edema Laboratory Tests 11/06/18 05:21: White Blood Count 6.5, Red Blood Count 4.12L, Hemoglobin 12.5, Hematocrit 38.8, Mean Corpuscular Volume 94, Mean Corpuscular Hemoglobin 30.5, Mean Corpuscular Hemoglobin Concent 32.4, Red Cell Distribution Width 13.6, Platelet Count 291, Mean Platelet Volume 5.6L, Neutrophils (%) (Auto) 52.0, Lymphocytes (%) (Auto) 28.0, Monocytes (%) (Auto) 11.4H, Eosinophils (%) (Auto) 6.5H, Basophils (%) ( Auto) 2.0, Sodium Level 146H, Potassium Level 4.0, Chloride Level 106, Carbon Dioxide Level 32, Anion Gap 8, Blood Urea Nitrogen 27H, Creatinine 0.8, Estimat Glomerular Filtration Rate , Glucose Level 115H, Calcium Level 8.9, Troponin I 0.427H, Pro-B-Type Natriuretic Peptide 8112H Current Medications Medications (Trade) Dose Ordered Sig/[place] Route PRN Reason Start Time Stop Time Status Last Admin Dose Admin Acetaminophen (Tylenol) 650 mg Q6H PRN ORAL Mild Pain/Temp > 100.5 11/04/18 02:30 12/02/18 02:29 11/06/18 10:40 Al Hydroxide/Mg Hydroxide (Mylanta) 30 ml Q6H PRN ORAL dyspepsia 11/04/18 02:30 12/02/18 02:29 11/05/18 17:38 Apixaban (Eliquis) 2.5 mg BID ORAL 11/04/18 09:00 12/03/18 08:59 11/06/18 09:10 Aspirin (ASA) 81 mg DAILY ORAL 11/04/18 09:00 12/03/18 08:59 11/06/18 09:10 Bisacodyl (Dulcolax) 5 mg DAILYPRN PRN ORAL Constipation 11/04/18 02:30 12/02/18 02:29 Carvedilol (Coreg) 3.125 mg EVERY 12 HOURS ORAL 11/04/18 09:00 12/03/18 20:59 11/06/18 09:10 Docusate Sodium (Colace) 100 mg DAILY ORAL 11/04/18 09:00 12/03/18 08:59 11/05/18 09:43 Escitalopram Oxalate (Lexapro) 10 mg DAILY ORAL 11/06/18 10:45 12/06/18 10:44 11/06/18 10:41 Famotidine (Pepcid) 20 mg DAILY ORAL 11/04/18 09:00 12/03/18 08:59 11/06/18 09:10 Furosemide (Lasix) 40 mg DAILY IV 11/04/18 09:00 12/04/18 08:59 11/06/18 09:11 Lactobacillus Acidophilus (Culturelle) 1 tab THREE TIMES A DAY ORAL 11/04/18 09:00 12/03/18 08:59 11/06/18 09:10 Lactulose (Cephulac) 30 gm BID ORAL 11/06/18 09:00 12/02/18 02:29 Lorazepam (Ativan) 1 mg Q6H PRN ORAL For Anxiety 11/06/18 10:45 11/13/18 10:44 Losartan Potassium (Cozaar) 50 mg DAILY ORAL 11/04/18 09:00 12/03/18 08:59 11/06/18 09:10 Magnesium Oxide (Mag-Ox 400mg) 400 mg DAILY ORAL 11/04/18 09:00 12/03/18 08:59 11/06/18 09:10 Meropenem 1 gm/ Sodium Chloride 55 ml @ 110 mls/hr Q12H IVPB 11/04/18 13:00 11/08/18 23:59 11/06/18 02:32 Mirtazapine (Remeron) 7.5 mg BEDTIME ORAL 11/04/18 21:00 12/03/18 20:59 11/05/18 20:33 Nitroglycerin (Ntg) 0.4 mg Q5M PRN SL Prn Chest Pain 11/04/18 13:15 12/04/18 13:14 11/05/18 06:36 Sennosides (Senokot) 8.6 mg DAILY ORAL 11/04/18 09:00 12/03/18 08:59 11/05/18 09:43 Spironolactone (Aldactone) 25 mg DAILY ORAL 11/04/18 09:00 12/04/18 08:59 11/06/18 09:10 Vitamin D (Vitamin D) 2,000 intlu BID ORAL 11/04/18 09:00 12/03/18 08:59 11/06/18 09:10 Heath Brenner MD Nov 06, 2018 12:36
--- NOTE | 2018-11-06 13:34 | Cardiac Electrophysiology PN ---
Assessment/Plan Assessment/Plan 1. Troponin leak. The levels are flat. Denies any chest pain. On aspirin and Coreg 3.125 bid.Medical therapy 2. Atrial fibrillation. On Coreg and Eliquis 2.5 mg twice a day. 3. Complete left bundle-branch block. 4. Cardiomyopathy with EF of only 30%, on Coreg, Lasix, and Losartan 50 5. ESBL UTI, on antibiotic. LAMAR RN Subjective Subjective No CP or SOB. Comfortable in NAD. Troponin was mildly elevated with no.change Objective Last 24 Hour Vital Signs Date Time Temp Pulse Resp B/P (MAP) Pulse Ox O2 Delivery O2 Flow Rate FiO2 11/06/18 11:10 98.4 11/06/18 09:10 150/63 11/06/18 09:10 69 150/63 11/06/18 09:00 Room Air 11/06/18 08:00 98.4 69 17 150/63 (92) 97 11/06/18 04:00 98.2 68 18 159/58 (91) 96 11/06/18 00:00 98.1 88 18 158/67 (97) 96 11/05/18 21:00 Room Air 11/05/18 20:34 82 124/68 11/05/18 20:00 98.4 82 16 133/68 (89) 95 11/05/18 16:00 98.5 78 20 122/67 (85) 95 Intake and Output 11/05/18 11/06/18 19:00 07:00 Intake Total 400 ml 295 ml Output Total 800 ml Balance -400 ml 295 ml Intake Oral 400 ml 240 ml IV Total 55 ml Output Urine Total 800 ml # Voids 3 Laboratory Tests Test 11/06/18 05:21 White Blood Count 6.5 K/UL (4.8-10.8) Red Blood Count 4.12 M/UL (4.20-5.40) L Hemoglobin 12.5 G/DL (12.0-16.0) Hematocrit 38.8 % (37.0-47.0) Mean Corpuscular Volume 94 FL (80-99) Mean Corpuscular Hemoglobin 30.5 PG (27.0-31.0) Mean Corpuscular Hemoglobin Concent 32.4 G/DL (32.0-36.0) Red Cell Distribution Width 13.6 % (11.6-14.8) Platelet Count 291 K/UL (150-450) Mean Platelet Volume 5.6 FL (6.5-10.1) L Neutrophils (%) (Auto) 52.0 % (45.0-75.0) Lymphocytes (%) (Auto) 28.0 % (20.0-45.0) Monocytes (%) (Auto) 11.4 % (1.0-10.0) H Eosinophils (%) (Auto) 6.5 % (0.0-3.0) H Basophils (%) (Auto) 2.0 % (0.0-2.0) Sodium Level 146 MMOL/L (136-145) H Potassium Level 4.0 MMOL/L (3.5-5.1) Chloride Level 106 MMOL/L (98-107) Carbon Dioxide Level 32 MMOL/L (21-32) Anion Gap 8 mmol/L (5-15) Blood Urea Nitrogen 27 mg/dL (7-18) H Creatinine 0.8 MG/DL (0.55-1.30) Estimat Glomerular Filtration Rate mL/min (>60) Glucose Level 115 MG/DL (74-106) H Calcium Level 8.9 MG/DL (8.5-10.1) Troponin I 0.427 ng/mL (0.000-0.056) Pro-B-Type Natriuretic Peptide 8112 pg/mL (0-125) H Objective HEAD AND NECK: Showed no JVD. LUNGS: Clear. CARDIOVASCULAR: Shows irregular S1 and S2 with no gallop or murmur. ABDOMEN: Soft. EXTREMITIES: No pitting edema. Yoni Robbins MD Nov 06, 2018 13:34
--- NOTE | 2018-11-06 15:59 | NUR ---
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 ELEVATED TROPONIN VS: BP 110/53, P 60, T 97.3, RR 18, SPO2 96 RBC 4.12, Na 146, BUN 27, TROPONIN 0.427 IS:MEROPENEM 55ml IVPB LASIX 40mg IV COREG 3.125mg LEXAPRO 10mg ELIQUIS 2.5mg MED/SURG STATUS
[2018-11-06 16:00] VITALS: BP 147/77
--- NOTE | 2018-11-06 17:23 | NUR ---
BEDSIDE SWALLOW EVALUATION COMPLETED POST CHART REVIEW AND INTERVIEW WITH RN. DYSPHAGIA RISK FACTORS FOR THIS 82 YEAR OLD FEMALE INCLUDE HX OF CVA, DEMENTIA, INSUFFICIENT DENTITION INITIAL IMPRESSION: WITH P.O. TRIALS OF PUREE, THIN LIQUID, SOFT CHEWABLE SOLID PATIENT DEMONTRATED EFFICACY OF OROPHARYNGEAL PHASE OF SWALLOW INTACT. PER STAFF THE PATIENT ASKS FOR A LOT OF FOOD, TAKES TWO OR THREE BITES, THEN REFUSES TO EAT ANY MORE DUE TO HIGHLY SELF/RESTRICTED FOOD PREFERENCES. PATIENT REPORTED THAT THE EXPERT MEDICAL WRITER OF HER SNF BRINGS HER FOOD TO EAT. DURING P.O. TRIALS PATIENT PRESENTED WITH WHAT APPEARS TO BE AN INTACT EFFICACY OF OROPHARYNGEAL PHASE OF SWALLOW. FULLY HYOLARYNGEAL EXCURSION DURING THE SWALLOW. CLEAR UPPER AIRWAY SOUNDS PRE AND POST SWALLOW. ABSENCE OF DENTITION LIMITS PATIENT CAPACITY TO FULLY MASTICATE SOLIDS SHE PRESENTS SAFE TO CONTINUE P.O. WITH DOWNGRADE IN DIET TEXTURE TO MECHANICAL SOFT/CHOPPED AND THIN LIQUIDSW, SET UP ASSIST AND SUPERVISION DURING P.O. DIETARY MAY NEED TO CONSULT TO INSURE P.O. INTAKE SUFFICIENT TO SUPPORT NUTRITION/HYDRATION NEEDS. NO FURTHER SKILLED AT SERVICES APPEAR TO BE NEEDED AT THIS TIME. THANK YOU FOR THIS REFERRAL.
--- NOTE | 2018-11-06 17:25 | Neurology Progress Note ---
Interim History Interim History Interim History Ms. Garsia feels about the same as yesterday. She denies any new neurologic symptoms. She continues to be cognitively impoverished. She continues to be motorically challenged. She denies any new neurological symptoms. Review of Systems Neuro Review of Systems Benign. Objective Physical Exam Last Vital Signs Date Time Temp Pulse Resp B/P (MAP) Pulse Ox O2 Delivery O2 Flow Rate FiO2 11/06/18 16:00 98.3 76 18 147/77 (100) 92 11/06/18 09:00 Room Air Laboratory Tests Test 11/06/18 05:21 White Blood Count 6.5 K/UL (4.8-10.8) Red Blood Count 4.12 M/UL (4.20-5.40) L Hemoglobin 12.5 G/DL (12.0-16.0) Hematocrit 38.8 % (37.0-47.0) Mean Corpuscular Volume 94 FL (80-99) Mean Corpuscular Hemoglobin 30.5 PG (27.0-31.0) Mean Corpuscular Hemoglobin Concent 32.4 G/DL (32.0-36.0) Red Cell Distribution Width 13.6 % (11.6-14.8) Platelet Count 291 K/UL (150-450) Mean Platelet Volume 5.6 FL (6.5-10.1) L Neutrophils (%) (Auto) 52.0 % (45.0-75.0) Lymphocytes (%) (Auto) 28.0 % (20.0-45.0) Monocytes (%) (Auto) 11.4 % (1.0-10.0) H Eosinophils (%) (Auto) 6.5 % (0.0-3.0) H Basophils (%) (Auto) 2.0 % (0.0-2.0) Sodium Level 146 MMOL/L (136-145) H Potassium Level 4.0 MMOL/L (3.5-5.1) Chloride Level 106 MMOL/L (98-107) Carbon Dioxide Level 32 MMOL/L (21-32) Anion Gap 8 mmol/L (5-15) Blood Urea Nitrogen 27 mg/dL (7-18) H Creatinine 0.8 MG/DL (0.55-1.30) Estimat Glomerular Filtration Rate mL/min (>60) Glucose Level 115 MG/DL (74-106) H Calcium Level 8.9 MG/DL (8.5-10.1) Troponin I 0.427 ng/mL (0.000-0.056) Pro-B-Type Natriuretic Peptide 8112 pg/mL (0-125) H Neurologic Exam Objective PHYSICAL EXAMINATION: GENERAL: She is a well-developed, well-nourished, but lean lady, lying in bed, in no acute distress. HEAD: Normocephalic and atraumatic. EENT: Examination benign. NECK: No neck rigidity was observed. NEUROLOGICAL EXAMINATION: MENTAL STATUS EXAMINATION: She was awake and alert. She was oriented to self and "[place]. She had no idea what the date, month, or year was. She was able to recall 3/3 words immediately, but could not remember any of them in 1 minute and 3 minutes. She was able to remember Presidents, Trump and Obama, but could not remember presidents prior to that. Her mathematical skills were significantly impaired. Her visuospatial function was also significantly impaired. SPEECH: She had a mild dysarthria. LANGUAGE: She has an anomia for low and mid frequency words. CRANIAL NERVE EXAMINATION: II: The visual delgado were intact to confrontation. III, IV & : The external ocular movements were full and the pupils 3 mm in diameter, equal, round, regular, and reactive to light. V: She had normal facial sensations, and the temporales, masseters, and pterygoids functioned normally. VII: She had a left seventh central facial paresis. VIII: She was able to hear and had no nystagmus. IX: The palate moved symmetrically on phonation. X: She had no hoarseness of voice. XI: The sternocleidomastoids and trapezii functioned normally. XII: The tongue was in the midline without any fasciculations or atrophy. MOTOR SYSTEM: The tone was increased in all four extremities with spasticity. Examination of muscle mass revealed generalized muscle wasting. In addition, she also had bilateral ankle cord and left finger flexor contractures. Examination of power was difficult to assess because of varying degrees of effort. She, however, had a definite quadriparesis involving the left side more than the right. SENSORY EXAMINATION: She was able to discern between pinprick and light touch. She had problems with other sensory modalities. REFLEXES: 0 at the biceps, triceps, brachioradialis, knees, and ankles. The plantar response was flexor on the right and extensor on the left. COORDINATION: [id number] testing was performed with mild difficulty, but was not dysmetric. She was unable to perform [id number] testing. STANCE & GAIT: Could not be tested. Impression/Recommendations Diagnostic Impression 1. Ms. Kiki Garsia is an 82-year-old, right-handed, lady, with a past history of multiple medical problems, who was hospitalized for increased confusion, disorientation, agitation, and failure to thrive, and was found to have a urinary tract infection. The infection has been treated and she has improved, but still continues to be altered compared to her baseline with regard to her mental state. 2. She feels about the same as yesterday. She denies any new neurologic symptoms. She continues to be cognitively impoverished. She continues to be motorically challenged. She denies any new neurological symptoms. 3. On neurological examination, at this time, she does have problems with orientation, recent and remote memory, visuospatial function, higher cognitive function, and language. She also has a left greater than right VII central facial paresis, generalized muscle wasting with bilateral ankle cord contractures and the left finger flexor contractures, weakness more marked on the left than on the right, globally absent deep tendon reflexes, and an extensor plantar response on the left side. 4. Laboratory data obtained on my initial evaluation revealed that she was anemic with a hemoglobin of 11.8 G. Her blood sugar was elevated at 120. Her calcium was minimally low at 8.3. Her troponins have been high with the last troponin measured at 0.504. Her proBNP is elevated at 13,618. Her albumin is low at 3.1. Her urinalysis reveals 1+ leukocyte esterase, 0-2 red blood cells, and 30-40 white blood cells per high-power field. 5. Further laboratory tests have revealed that she is significantly vitamin B12 deficient with a level of 264 and folic acid deficient with a level of 8. 6. The CT scan of the brain reveals atrophy and deep white matter changes but no large territorial infarct. 7. The EEG reveals an encephalopathy of a mild degree. 8. 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 Recommendations 1. The patient was given an explanation of the above-mentioned findings. 2. Continue present management. 3. Continue aggressive treatment of infectious process. 4. Continue to correct toxic metabolic imbalances. 5. Vitamin B12 1000 mcg subcutaneously daily for 3 days and then monthly. 6. Folic acid 1 mg daily by mouth. 7. Observe closely. Polo Stewart M.D., M.S.P.H. Polo Stewart MD Nov 06, 2018 17:25
[2018-11-06] MEDS: Vitamin B12 1000mcg/ml Inj SUBQ SCH (17:37)
--- NOTE | 2018-11-06 19:15 | NUR ---
NURSE NOTES: Received patient in bed. AAO x 4, intermittent forgetful, on room air. Purewick intact. IV on R hand intact. IV on R hand and L FA intact. Pt is encouraged to drink more fluid. No acute distress noted at this time. Bed locked, lowest position, side rails up x 2, call light within reach. Will continue to monitor.
--- NOTE | 2018-11-06 19:34 | NUR ---
HAND-OFF: Report given to TAMRA Brady.
[2018-11-06 20:00] VITALS: BP 120/61
--- NOTE | 2018-11-06 20:53 | General Progress Note ---
Assessment/Plan Assessment/Plan: ESBL uti bacteremia afib increased troponin abdominal pain faliure to thrive abx per ID on [employer] cards fup echo noted will dw GI ? need for PEG stool softner laxatives dvt and uler prophylaxis Subjective Allergies: Coded Allergies: CEPHALOSPORINS (Verified Allergy, Unknown, 11/02/18) PENICILLINS (Verified Allergy, Unknown, 11/02/18) Subjective comfortable no chest pain or sob co abdominal pain co poor appetite Objective Last 24 Hour Vital Signs Date Time Temp Pulse Resp B/P (MAP) Pulse Ox O2 Delivery O2 Flow Rate FiO2 11/06/18 20:20 73 120/61 11/06/18 16:00 98.3 76 18 147/77 (100) 92 11/06/18 12:00 98.0 73 18 148/68 (94) 98 11/06/18 11:10 98.4 11/06/18 09:10 150/63 11/06/18 09:10 69 150/63 11/06/18 09:00 Room Air 11/06/18 08:00 98.4 69 17 150/63 (92) 97 11/06/18 04:00 98.2 68 18 159/58 (91) 96 11/06/18 00:00 98.1 88 18 158/67 (97) 96 11/05/18 21:00 Room Air Intake and Output 11/05/18 11/06/18 19:00 07:00 Intake Total 400 ml 295 ml Output Total 800 ml Balance -400 ml 295 ml Intake Oral 400 ml 240 ml IV Total 55 ml Output Urine Total 800 ml # Voids 3 Laboratory Tests 11/06/18 05:21: White Blood Count 6.5, Red Blood Count 4.12L, Hemoglobin 12.5, Hematocrit 38.8, Mean Corpuscular Volume 94, Mean Corpuscular Hemoglobin 30.5, Mean Corpuscular Hemoglobin Concent 32.4, Red Cell Distribution Width 13.6, Platelet Count 291, Mean Platelet Volume 5.6L, Neutrophils (%) (Auto) 52.0, Lymphocytes (%) (Auto) 28.0, Monocytes (%) (Auto) 11.4H, Eosinophils (%) (Auto) 6.5H, Basophils (%) ( Auto) 2.0, Sodium Level 146H, Potassium Level 4.0, Chloride Level 106, Carbon Dioxide Level 32, Anion Gap 8, Blood Urea Nitrogen 27H, Creatinine 0.8, Estimat Glomerular Filtration Rate , Glucose Level 115H, Calcium Level 8.9, Troponin I 0.427H, Pro-B-Type Natriuretic Peptide 8112H Height (Feet): 5 Height (Inches): 3.00 Weight (Pounds): 100 General Appearance: WD/WN, no apparent distress Neck: supple Cardiovascular: normal rate Respiratory/Chest: lungs clear Abdomen: soft Edema: no edema noted Arm (L), no edema noted Arm (R), no edema noted Leg (L), no edema noted Leg (R), no edema noted Pedal (L), no edema noted Pedal (R), no edema noted Generalized Stan Delgado MD Nov 06, 2018 20:53
--- NOTE | 2018-11-06 20:55 | General Progress Note ---
Assessment/Plan Assessment/Plan: ESBL uti bacteremia afib increased troponin abdominal pain faliure to thrive abx per ID on [employer] cards fup echo noted gi fup may need colonpsy/egd will rosa Alejandro stool softner laxatives dvt and uler prophylaxis Subjective Allergies: Coded Allergies: CEPHALOSPORINS (Verified Allergy, Unknown, 11/02/18) PENICILLINS (Verified Allergy, Unknown, 11/02/18) Subjective this note reflects my visit with patient 11/05 co abdominal pain no chest painor sob Objective Last 24 Hour Vital Signs Date Time Temp Pulse Resp B/P (MAP) Pulse Ox O2 Delivery O2 Flow Rate FiO2 11/06/18 20:20 73 120/61 11/06/18 16:00 98.3 76 18 147/77 (100) 92 11/06/18 12:00 98.0 73 18 148/68 (94) 98 11/06/18 11:10 98.4 11/06/18 09:10 150/63 11/06/18 09:10 69 150/63 11/06/18 09:00 Room Air 11/06/18 08:00 98.4 69 17 150/63 (92) 97 11/06/18 04:00 98.2 68 18 159/58 (91) 96 11/06/18 00:00 98.1 88 18 158/67 (97) 96 11/05/18 21:00 Room Air Intake and Output 11/05/18 11/06/18 19:00 07:00 Intake Total 400 ml 295 ml Output Total 800 ml Balance -400 ml 295 ml Intake Oral 400 ml 240 ml IV Total 55 ml Output Urine Total 800 ml # Voids 3 Laboratory Tests 11/06/18 05:21: White Blood Count 6.5, Red Blood Count 4.12L, Hemoglobin 12.5, Hematocrit 38.8, Mean Corpuscular Volume 94, Mean Corpuscular Hemoglobin 30.5, Mean Corpuscular Hemoglobin Concent 32.4, Red Cell Distribution Width 13.6, Platelet Count 291, Mean Platelet Volume 5.6L, Neutrophils (%) (Auto) 52.0, Lymphocytes (%) (Auto) 28.0, Monocytes (%) (Auto) 11.4H, Eosinophils (%) (Auto) 6.5H, Basophils (%) ( Auto) 2.0, Sodium Level 146H, Potassium Level 4.0, Chloride Level 106, Carbon Dioxide Level 32, Anion Gap 8, Blood Urea Nitrogen 27H, Creatinine 0.8, Estimat Glomerular Filtration Rate , Glucose Level 115H, Calcium Level 8.9, Troponin I 0.427H, Pro-B-Type Natriuretic Peptide 8112H Height (Feet): 5 Height (Inches): 3.00 Weight (Pounds): 100 General Appearance: WD/WN Neck: supple Cardiovascular: regular rhythm Respiratory/Chest: lungs clear Abdomen: soft Stan Delgado MD Nov 06, 2018 20:55
--- NOTE | 2018-11-06 20:58 | CDS Physician Query ---
Clarification is required for compliance, coding accuracy, and to reflect severity of illness for this patient Dear Dr. 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 Coreg, lasricco, marlen. Cardiology consulted. "Heart Failure / CHF" documented throughout patient record Please Clarify: Acuity [] Acute [] Chronic [] Acute on Chronic Type [] Systolic [] Diastolic [] Systolic & Diastolic (Combined) [] Other: Present on Admission: [] Yes [] No [] Clinically Undetermined Physician signature Date Please also document in your Progress Notes and/or Discharge Summary and indicate if the condition was present on admission. MONA
--- NOTE | 2018-11-06 21:30 | Electroencephalogram ---
DATE OF PROCEDURE: 11/05/2018 REQUESTING PHYSICIAN: Stan Delgado M.D. READING PHYSICIAN: Polo Stewart M.D. PROCEDURE PERFORMED: Electroencephalogram. HISTORY: This EEG was performed on an 82-year-old lady with a history of multiple medical problems, who was hospitalized for an alteration in her mental state. The patient does have a prior history of stroke and this EEG was performed to evaluate the patient for the degree and type of cerebral dysfunction and to exclude ongoing ictal or interictal phenomena. TECHNICAL NOTE: This EEG was performed on a [employer] with electrodes placed on the scalp according to the International 10-20 system. [id number] and [id number] montages were used. The EEG was technically satisfactory and was performed predominantly while the patient was either awake or drowsy with a brief periods of stage II sleep. OBSERVATIONS: In the best awake state, the background activity consisted of 7-8 Hz posteriorly predominant activity, which attenuated on eye opening. Drowsiness was characterized by slowing of the background in the 4-5 Hz theta range. Brief periods of stage II sleep were characterized by slowing of the background in the delta and theta range and the presence of a few interspersed vertex waves. No definite focal abnormalities or epileptiform discharges were seen. IMPRESSION: This is an abnormal EEG characterized by slowing of the background in the 7-8 Hz range in the best awake state. COMMENT: This study is consistent with an encephalopathy of a mild degree. Polo Stewart M.D., M.S.P.H. DR: FRANCI JOB#: [id number] CC: MONA
--- NOTE | 2018-11-06 21:45 | Consultation ---
DATE OF CONSULTATION: 11/06/2018 CONSULTING PHYSICIAN: Hira Mckeon M.D. HISTORY OF PRESENT ILLNESS: The patient is an 82-year-old female, well familiar with [facility]. The patient has a history of depression, anxiety, dementia who has been admitted to the hospital for medical stabilization. The patient is severely anxious at baseline, demanding, has forgetfulness. During the evaluation, the patient and complaining of severe abdominal pain and stated that she is not able to sleep. PAST PSYCHIATRIC HISTORY: She has been treated with Remeron, Zoloft in the past. She is on Ativan for anxiety and depression. PAST MEDICAL HISTORY: Significant for: 1. Hypertension. 2. Dyslipidemia. 3. Lumbosacral stenosis. 4. CVA. 5. Peptic ulcer. 6. Myopathy. 7. Coronary artery disease, status post myocardial infarction. 8. AFib. 9. Pneumonia. 10. UTIs. 11. Sepsis. ALLERGIES: Include penicillin and cephalosporins. SUBSTANCE ABUSE HISTORY: No known history of illicit drug use or alcohol. MENTAL STATUS EXAMINATION: The patient is alert, oriented times self, place, and situation. She is very forgetful, cooperative. Mood is anxious. Affect is full range, congruent with mood. Thought process is concrete. Thought content, no suicidal or homicidal ideations. Memory is impaired. Insight and judgment is impaired. ASSESSMENT: [place] I Major depressive disorder. Anxiety disorder. [place] II Deferred. [place] III As above. [place] IV Low. [place] V 60. PLAN: 1. We will start the patient on escitalopram 10 mg in the morning. 2. Continue the Remeron. 3. Lorazepam 1 mg every 6 hours p.r.n. 4. The patient has capacity to make decisions. Hira Mckeon M.D. DR: OMKAR JOB#: [id number] CC:
[2018-11-07] VITALS: BP 110/53
[2018-11-07] MEDS: Meropenem 1 GM in NS 55 ML IVPB SCH ×2 (00:12→12:04)
[2018-11-07 04:00] VITALS: BP 114/36
--- NOTE | 2018-11-07 07:43 | NUR ---
HAND-OFF: Report given to TAMRA Taylor.
--- NOTE | 2018-11-07 07:43 | NUR ---
NURSE NOTES: Received patient in bed eating breakfast, denies any pain, AAO x 4. Pt is on room air. IV on R hand and L FA patent and intact Encouraged patient to drink more fluid. No acute distress noted at this time. Bed is on lowest position, bedside rails up x 2, brakes engaged forn safety. call light within reach. Will continue to monitor.
[2018-11-07] MEDS: Spironolactone 25mg tab ORAL SCH (08:52)
[2018-11-07] MEDS: Losartan 50mg tab ORAL SCH (08:53)
[2018-11-07] MEDS: Magnesium Oxide 400mg tab ORAL SCH (08:54)
[2018-11-07] MEDS: Vitamin D 1000 IU Tab ORAL SCH ×2 (08:54→17:20)
[2018-11-07] MEDS: Aspirin Baby 81mg ORAL SCH (08:55)
[2018-11-07] MEDS: Eliquis 2.5mg tablet ORAL SCH ×2 (08:55→17:20)
[2018-11-07] MEDS: Lactobacillus-GG tablet ORAL SCH ×3 (08:56→17:20)
[2018-11-07] MEDS: Sennosides 8.6mg tab ORAL SCH (08:56)
[2018-11-07] MEDS: Docusate 100mg cap ORAL SCH (08:56)
[2018-11-07] MEDS: Lactulose 20gm/30ml UDC ORAL SCH ×2 (08:57→17:21)
[2018-11-07] MEDS: Vitamin B12 1000mcg/ml Inj SUBQ SCH (08:57)
[2018-11-07 09:00] VITALS: BP 134/70
--- NOTE | 2018-11-07 09:35 | NUR ---
RD ASSESSMENT & RECOMMENDATIONS SEE CARE ACTIVITY FOR COMPLETE ASSESSMENT DAILY ESTIMATED NEEDS: Needs based on Underweight/ 45.5kg 30-35 kcals/kg 4169-7278 total kcals 1-1.5 g protein/kg 46-68 g total protein 25-30 mL/kg 9391-1812 total fluid mLs NUTRITION DIAGNOSIS: Increased kcal/prot intake needs R/T underweight status, wound healing as evidenced by pt at 87% IBW w/ BMI of 17.8, w/ non-blanchable erythema at buttocks. [place] count x 72 hrs completed, inadequate data 11/04 breakfast: ~390kcal 0% oatmeal 100% egg white 100% Ensure Enlive lunch: No meal ticket available, per note from nursing "40% of tray" dinner: ~610 kcal 100% chicken 0% carrots 0% bread /3 sandwich 100% Ensure Enlive 11/05 breakfast: 0% per EMR lunch: ~460kcal 0% soup 50% baked sole 40% mashed potatoes 0% pudding 0% milk 90% Ensure Enlive Dinner 40% total meal per EMR Snacks: Ensure Enlive x 2 (700kcal) 11/06 breakfast: 100% of tray per EMR lunch: 100% of tray per EMR dinner: 100% of tray per EMR RESULT: Unable to calculate accurate kcal intake due to limited data available. However, it appears that pt is eating fair-good intake @ all meals and receives Ensure Enlive 1 bottle TID (350kcal per bottle), which pt appears to drink most of. Pt est to consume >1500kcal per day, meeting est kcal needs. Recommend: (1) Continue Ensure Enlive TID w/ meals (350kcal/20g prot per bottle) (2) add MVI x 1 and Vit C 250mg QD as supplement and to improve skin integrity (3) Consider liberalizing diet to Low Na for improved food acceptance (4) Rec to hold stool softeners as pt w/ diarrhea (diarrhea x 2 on 11/06 per EMR)- pt on lactulose BID and Colace QD. CURRENT DIET:CARDIAC, mech soft chopped PO DIET RECOMMENDATIONS: Liberalized LOW NA diet/ texture per MAINTENANCE TRAINER + Ensure Enlive TID w/ meals ADDITIONAL RECOMMENDATIONS: * Calibrated bedscale wt for accurate CBW -> weekly wt monitoring given underweight status * Calorie count x 72 hrs completed 11/07 * Skin integrity MVI x 1, Vit C 250mg QD * Hold lactulose + colace: + diarrhea x 2 on 11/06 * Monitor lytes daily w/ diuretics, replete as needed
--- NOTE | 2018-11-07 11:04 | Infectious Diseases Prog Note ---
Assessment/Plan Assessment/Plan antibiotics : meropenem A 1. e.coli UTI 2. + blood culture with coag neg staph likely contaminated 3. CHF 4. hypertension 5. dementia P 1. continue meropenem 1 more day 2. will follow up cultures Subjective Constitutional: Denies: fever, chills Respiratory: Reports: shortness of breath, dry cough Gastrointestinal/Abdominal: Reports: nausea, diarrhea - decreased; Denies: vomiting Musculoskeletal: Reports: pain - abdominal Allergies: Coded Allergies: CEPHALOSPORINS (Verified Allergy, Unknown, 11/02/18) PENICILLINS (Verified Allergy, Unknown, 11/02/18) Objective Vital Signs Last 24 Hour Vital Signs Date Time Temp Pulse Resp B/P (MAP) Pulse Ox O2 Delivery O2 Flow Rate FiO2 11/07/18 09:00 97.3 70 18 134/70 (91) 96 11/07/18 09:00 Room Air 11/07/18 08:56 70 134/70 11/07/18 08:53 134/70 11/07/18 04:00 97.5 69 16 114/36 (62) 96 11/07/18 00:00 97.3 61 18 110/53 (72) 97 11/06/18 21:00 Room Air 11/06/18 20:20 73 120/61 11/06/18 20:00 97.2 73 20 120/61 (80) 92 11/06/18 16:00 98.3 76 18 147/77 (100) 92 11/06/18 12:00 98.0 73 18 148/68 (94) 98 11/06/18 11:10 98.4 Height (Feet): 5 Height (Inches): 3.00 Weight (Pounds): 100 Respiratory/Chest: lungs clear Cardiovascular: normal rate, regular rhythm, no gallop/murmur Abdomen: soft, non tender Extremities: no edema Current Medications Medications (Trade) Dose Ordered Sig/[place] Route PRN Reason Start Time Stop Time Status Last Admin Dose Admin Acetaminophen (Tylenol) 650 mg Q6H PRN ORAL Mild Pain/Temp > 100.5 11/04/18 02:30 12/02/18 02:29 11/07/18 10:56 Al Hydroxide/Mg Hydroxide (Mylanta) 30 ml Q6H PRN ORAL dyspepsia 11/04/18 02:30 12/02/18 02:29 11/06/18 13:47 Apixaban (Eliquis) 2.5 mg BID ORAL 11/04/18 09:00 12/03/18 08:59 11/07/18 08:55 Aspirin (ASA) 81 mg DAILY ORAL 11/04/18 09:00 12/03/18 08:59 11/07/18 08:55 Bisacodyl (Dulcolax) 5 mg DAILYPRN PRN ORAL Constipation 11/04/18 02:30 12/02/18 02:29 Carvedilol (Coreg) 3.125 mg EVERY 12 HOURS ORAL 11/04/18 09:00 12/03/18 20:59 11/07/18 08:56 Cyanocobalamin (Vitamin B12) 1,000 mcg DAILY SUBQ 11/06/18 17:30 11/08/18 09:01 11/07/18 08:57 Docusate Sodium (Colace) 100 mg DAILY ORAL 11/04/18 09:00 12/03/18 08:59 11/07/18 08:56 Escitalopram Oxalate (Lexapro) 10 mg DAILY ORAL 11/06/18 10:45 12/06/18 10:44 11/07/18 08:56 Famotidine (Pepcid) 20 mg DAILY ORAL 11/04/18 09:00 12/03/18 08:59 11/07/18 08:55 Folic Acid (Folate) 1 mg DAILY ORAL 11/06/18 18:00 12/06/18 17:59 11/07/18 08:54 Furosemide (Lasix) 40 mg DAILY IV 11/04/18 09:00 12/04/18 08:59 11/07/18 08:57 Lactobacillus Acidophilus (Culturelle) 1 tab THREE TIMES A DAY ORAL 11/04/18 09:00 12/03/18 08:59 11/07/18 08:56 Lactulose (Cephulac) 30 gm BID ORAL 11/06/18 09:00 12/02/18 02:29 11/07/18 08:57 Lorazepam (Ativan) 1 mg Q6H PRN ORAL For Anxiety 11/06/18 10:45 11/13/18 10:44 Losartan Potassium (Cozaar) 50 mg DAILY ORAL 11/04/18 09:00 12/03/18 08:59 11/07/18 08:53 Magnesium Oxide (Mag-Ox 400mg) 400 mg DAILY ORAL 11/04/18 09:00 12/03/18 08:59 11/07/18 08:54 Meropenem 1 gm/ Sodium Chloride 55 ml @ 110 mls/hr Q12H IVPB 11/04/18 13:00 11/08/18 23:59 11/07/18 00:12 Mirtazapine (Remeron) 7.5 mg BEDTIME ORAL 11/04/18 21:00 12/03/18 20:59 11/06/18 20:15 Nitroglycerin (Ntg) 0.4 mg Q5M PRN SL Prn Chest Pain 11/04/18 13:15 12/04/18 13:14 11/05/18 06:36 Sennosides (Senokot) 8.6 mg DAILY ORAL 11/04/18 09:00 12/03/18 08:59 11/07/18 08:56 Spironolactone (Aldactone) 25 mg DAILY ORAL 11/04/18 09:00 12/04/18 08:59 11/07/18 08:52 Vitamin D (Vitamin D) 2,000 intlu BID ORAL 11/04/18 09:00 12/03/18 08:59 11/07/18 08:54 Joe Villa MD Nov 07, 2018 11:04
[2018-11-07 12:00] VITALS: BP 138/61
--- NOTE | 2018-11-07 15:26 | Pulmonology Progress Note ---
Assessment/Plan Problems: (1) UTI due to extended-spectrum beta lactamase (ESBL) producing Escherichia coli (2) CHF exacerbation (3) Elevated troponin (4) Positive blood culture Assessment/Plan ASSESSMENT: The patient is an 82-year-old female, jail resident, with a history of AFib, CHF, and multiple medical problems, admitted with ESBL UTI and bacteremia, which may be contamination, decompensated heart failure, and troponinemia. She has moderate bilateral pleural effusions, which are likely secondary to her heart failure. She is fairly stable from a respiratory standpoint. PROBLEM LIST: 1. ESBL UTI. 2. Staphylococcal bloodstream infection, likely contaminant. 3. Congestive heart failure with EF of 35%, admitted with decompensated heart failure. 4. Complete left bundle branch block. 5. AFib, on anticoagulation. 6. Troponinemia. 7. Bilateral pleural effusions, likely secondary to [place] forces. 8. History of DVT and PE in the past. 9. Hypertension, hyperlipidemia, peptic ulcer disease, peripheral neuropathy, CVA, hemiparesis, and GERD. TREATMENT PLAN: 1. Optimize pulmonary hygiene/mobilize as tolerated. 2. P.r.n. O2. 3. Monitor volumes and renal function, cautious diuresis as able. 4. Continue antibiotics per ID. 5. 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 I will hold off on thoracentesis, but we will monitor effusions, if persistent effusions in the future, we can consider therapeutic and diagnostic thoracentesis at the [facility] at [facility]. 7. I would repeat chest imaging as an outpatient once the patient is euvolemic and consider cross-sectional imaging of the chest at that time. 8. The patient is DNR/DNI. Subjective Allergies: Coded Allergies: CEPHALOSPORINS (Verified Allergy, Unknown, 11/02/18) PENICILLINS (Verified Allergy, Unknown, 11/02/18) Subjective AFVSS on RA No cough no SOB no FC no CP Still confused Objective Last 24 Hour Vital Signs Date Time Temp Pulse Resp B/P (MAP) Pulse Ox O2 Delivery O2 Flow Rate FiO2 11/07/18 12:00 97.3 60 18 138/61 (86) 98 11/07/18 09:00 97.3 70 18 134/70 (91) 96 11/07/18 09:00 Room Air 11/07/18 08:56 70 134/70 11/07/18 08:53 134/70 11/07/18 04:00 97.5 69 16 114/36 (62) 96 11/07/18 00:00 97.3 61 18 110/53 (72) 97 11/06/18 21:00 Room Air 11/06/18 20:20 73 120/61 11/06/18 20:00 97.2 73 20 120/61 (80) 92 11/06/18 16:00 98.3 76 18 147/77 (100) 92 Intake and Output 11/06/18 11/07/18 19:00 07:00 Intake Total 840 ml 415 ml Balance 840 ml 415 ml Intake Oral 840 ml 360 ml IV Total 55 ml # Voids 4 3 # Bowel Movements 4 General Appearance: no acute distress, other - confused HEENT: normocephalic, atraumatic, anicteric, mucous membranes moist Respiratory/Chest: chest wall non-tender, lungs clear, normal breath sounds, no respiratory distress, no accessory muscle use Cardiovascular: normal peripheral pulses, normal rate, regular rhythm Abdomen: normal bowel sounds, soft, non tender, no organomegaly, non distended , no mass Extremities: no cyanosis, no clubbing, no edema Current Medications Medications (Trade) Dose Ordered Sig/[place] Route PRN Reason Start Time Stop Time Status Last Admin Dose Admin Acetaminophen (Tylenol) 650 mg Q6H PRN ORAL Mild Pain/Temp > 100.5 11/04/18 02:30 12/02/18 02:29 11/07/18 10:56 Al Hydroxide/Mg Hydroxide (Mylanta) 30 ml Q6H PRN ORAL dyspepsia 11/04/18 02:30 12/02/18 02:29 11/06/18 13:47 Apixaban (Eliquis) 2.5 mg BID ORAL 11/04/18 09:00 12/03/18 08:59 11/07/18 08:55 Aspirin (ASA) 81 mg DAILY ORAL 11/04/18 09:00 12/03/18 08:59 11/07/18 08:55 Bisacodyl (Dulcolax) 5 mg DAILYPRN PRN ORAL Constipation 11/04/18 02:30 12/02/18 02:29 Carvedilol (Coreg) 3.125 mg EVERY 12 HOURS ORAL 11/04/18 09:00 12/03/18 20:59 11/07/18 08:56 Cyanocobalamin (Vitamin B12) 1,000 mcg DAILY SUBQ 11/06/18 17:30 11/08/18 09:01 11/07/18 08:57 Docusate Sodium (Colace) 100 mg DAILY ORAL 11/04/18 09:00 12/03/18 08:59 11/07/18 08:56 Escitalopram Oxalate (Lexapro) 10 mg DAILY ORAL 11/06/18 10:45 12/06/18 10:44 11/07/18 08:56 Famotidine (Pepcid) 20 mg DAILY ORAL 11/04/18 09:00 12/03/18 08:59 11/07/18 08:55 Folic Acid (Folate) 1 mg DAILY ORAL 11/06/18 18:00 12/06/18 17:59 11/07/18 08:54 Furosemide (Lasix) 40 mg DAILY IV 11/04/18 09:00 12/04/18 08:59 11/07/18 08:57 Lactobacillus Acidophilus (Culturelle) 1 tab THREE TIMES A DAY ORAL 11/04/18 09:00 12/03/18 08:59 11/07/18 12:05 Lactulose (Cephulac) 30 gm BID ORAL 11/06/18 09:00 12/02/18 02:29 11/07/18 08:57 Lorazepam (Ativan) 1 mg Q6H PRN ORAL For Anxiety 11/06/18 10:45 11/13/18 10:44 Losartan Potassium (Cozaar) 50 mg DAILY ORAL 11/04/18 09:00 12/03/18 08:59 11/07/18 08:53 Magnesium Oxide (Mag-Ox 400mg) 400 mg DAILY ORAL 11/04/18 09:00 12/03/18 08:59 11/07/18 08:54 Meropenem 1 gm/ Sodium Chloride 55 ml @ 110 mls/hr Q12H IVPB 11/04/18 13:00 11/08/18 23:59 11/07/18 12:04 Mirtazapine (Remeron) 7.5 mg BEDTIME ORAL 11/04/18 21:00 12/03/18 20:59 11/06/18 20:15 Nitroglycerin (Ntg) 0.4 mg Q5M PRN SL Prn Chest Pain 11/04/18 13:15 12/04/18 13:14 11/05/18 06:36 Sennosides (Senokot) 8.6 mg DAILY ORAL 11/04/18 09:00 12/03/18 08:59 11/07/18 08:56 Spironolactone (Aldactone) 25 mg DAILY ORAL 11/04/18 09:00 12/04/18 08:59 11/07/18 08:52 Vitamin D (Vitamin D) 2,000 intlu BID ORAL 11/04/18 09:00 12/03/18 08:59 11/07/18 08:54 Heath Brenner MD Nov 07, 2018 15:26
[2018-11-07 16:00] VITALS: BP 130/70
--- NOTE | 2018-11-07 17:34 | Neurology Progress Note ---
Interim History Interim History Interim History Ms. Garsia feels unwell. She is eager to go home. She likes the food here but has a poor appetite. She continues to be cognitively impoverished. She continues to be motorically challenged. She denies any new neurological symptoms. Review of Systems Neuro Review of Systems Benign. Objective Physical Exam Last Vital Signs Date Time Temp Pulse Resp B/P (MAP) Pulse Ox O2 Delivery O2 Flow Rate FiO2 11/07/18 16:00 97.2 70 18 130/70 (90) 97 11/07/18 09:00 Room Air Neurologic Exam Objective PHYSICAL EXAMINATION: GENERAL: She is a well-developed, well-nourished, but lean lady, lying in bed, in no acute distress. HEAD: Normocephalic and atraumatic. EENT: Examination benign. NECK: No neck rigidity was observed. NEUROLOGICAL EXAMINATION: MENTAL STATUS EXAMINATION: She was awake and alert. She was oriented to self and "[facility]" [facility]. She had no idea what the date, month, or year was. She was able to recall 3/3 words immediately, but could not remember any of them in 1 minute and 3 minutes. She was able to remember Presidents, Trump and Obama, but could not remember presidents prior to that. Her mathematical skills were significantly impaired. Her visuospatial function was also significantly impaired. SPEECH: She had a mild dysarthria. LANGUAGE: She has an anomia for low and mid frequency words. CRANIAL NERVE EXAMINATION: II: The visual delgado were intact to confrontation. III, IV & : The external ocular movements were full and the pupils 3 mm in diameter, equal, round, regular, and reactive to light. V: She had normal facial sensations, and the temporales, masseters, and pterygoids functioned normally. VII: She had a left seventh central facial paresis. VIII: She was able to hear and had no nystagmus. IX: The palate moved symmetrically on phonation. X: She had no hoarseness of voice. XI: The sternocleidomastoids and trapezii functioned normally. XII: The tongue was in the midline without any fasciculations or atrophy. MOTOR SYSTEM: The tone was increased in all four extremities with spasticity. Examination of muscle mass revealed generalized muscle wasting. In addition, she also had bilateral ankle cord and left finger flexor contractures. Examination of power was difficult to assess because of varying degrees of effort. She, however, had a definite quadriparesis involving the left side more than the right. SENSORY EXAMINATION: She was able to discern between pinprick and light touch. She had problems with other sensory modalities. REFLEXES: 0 at the biceps, triceps, brachioradialis, knees, and ankles. The plantar response was flexor on the right and extensor on the left. COORDINATION: Qaydbj-to-lhye testing was performed with mild difficulty, but was not dysmetric. She was unable to perform [id number] testing. STANCE & GAIT: Could not be tested. Impression/Recommendations Diagnostic Impression 1. Ms. Kiki Garsia is an 82-year-old, right-handed, lady, with a past history of multiple medical problems, who was hospitalized for increased confusion, disorientation, agitation, and failure to thrive, and was found to have a urinary tract infection. The infection has been treated and she has improved, but still continues to be altered compared to her baseline with regard to her mental state. 2. She feels unwell. She is eager to go home. She likes the food here but has a poor appetite. She continues to be cognitively impoverished. She continues to be motorically challenged. She denies any new neurological symptoms. 3. On neurological examination, at this time, she does have problems with orientation, recent and remote memory, visuospatial function, higher cognitive function, and language. She also has a left greater than right VII central facial paresis, generalized muscle wasting with bilateral ankle cord contractures and the left finger flexor contractures, weakness more marked on the left than on the right, globally absent deep tendon reflexes, and an extensor plantar response on the left side. 4. Laboratory data obtained on my initial evaluation revealed that she was anemic with a hemoglobin of 11.8 G. Her blood sugar was elevated at 120. Her calcium was minimally low at 8.3. Her troponins have been high with the last troponin measured at 0.504. Her proBNP is elevated at 13,618. Her albumin is low at 3.1. Her urinalysis reveals 1+ leukocyte esterase, 0-2 red blood cells, and 30-40 white blood cells per high-power field. 5. Further laboratory tests have revealed that she is significantly vitamin B12 deficient with a level of 264 and folic acid deficient with a level of 8. 6. The CT scan of the brain reveals atrophy and deep white matter changes but no large territorial infarct. 7. The EEG reveals an encephalopathy of a mild degree. 8. 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 Recommendations 1. The patient was given an explanation of the above-mentioned findings. 2. Continue present management. 3. Continue aggressive treatment of infectious process. 4. Continue to correct toxic metabolic imbalances. 5. Vitamin B12 1000 mcg subcutaneously monthly. 6. Folic acid 1 mg daily by mouth. 7. Observe. Polo Stewart M.D., M.S.P.H. Polo Stewart MD Nov 07, 2018 17:34
--- NOTE | 2018-11-07 19:28 | NUR ---
HAND-OFF: Report given to TAMRA Pearce. [id number] is in stable condition.
[2018-11-07 20:00] VITALS: BP 136/66
--- NOTE | 2018-11-07 20:00 | NUR ---
NURSE NOTES: Patient received in bed, awake, alert. IV is intact. No signs of acute distress at this time. Call light in reach. Will monitor.
--- NOTE | 2018-11-07 20:04 | General Progress Note ---
Assessment/Plan Assessment/Plan: GAssessment - Anorexia - malnutrition - low albumin - depression and dementia, likely the underlying cause of poor po - GERD Recommendations - continue H2B - Low dose remeron qhs - can add other agents if Remeron ineffective - Boost/Ensure - Calorie count - PRN laxative - no plans for PEG placement Subjective Allergies: Coded Allergies: CEPHALOSPORINS (Verified Allergy, Unknown, 11/02/18) PENICILLINS (Verified Allergy, Unknown, 11/02/18) Subjective Feels OK/same on low dose Remeron still with poor appetite Declines PEG placement spoke with Jackson GEORGES who wants to follow patient's decision Objective Last 24 Hour Vital Signs Date Time Temp Pulse Resp B/P (MAP) Pulse Ox O2 Delivery O2 Flow Rate FiO2 11/07/18 16:00 97.2 70 18 130/70 (90) 97 11/07/18 12:00 97.3 60 18 138/61 (86) 98 11/07/18 09:00 97.3 70 18 134/70 (91) 96 11/07/18 09:00 Room Air 11/07/18 08:56 70 134/70 11/07/18 08:53 134/70 11/07/18 04:00 97.5 69 16 114/36 (62) 96 11/07/18 00:00 97.3 61 18 110/53 (72) 97 11/06/18 21:00 Room Air 11/06/18 20:20 73 120/61 Intake and Output 11/06/18 11/07/18 19:00 07:00 Intake Total 840 ml 415 ml Balance 840 ml 415 ml Intake Oral 840 ml 360 ml IV Total 55 ml # Voids 4 3 # Bowel Movements 4 Height (Feet): 5 Height (Inches): 3.00 Weight (Pounds): 100 Objective Thin elderly WW NCAT supple CTA RRR abd soft ND NT no edema Mare Crawford MD Nov 07, 2018 20:04
--- NOTE | 2018-11-07 21:19 | General Progress Note ---
Assessment/Plan Assessment/Plan: ESBL uti bacteremia afib increased troponin abdominal pain faliure to thrive abx per ID on [email or web address] cards fup echo noted refuses PEG stool softner laxatives dvt and uler prophylaxis dc plans to snf Subjective Allergies: Coded Allergies: CEPHALOSPORINS (Verified Allergy, Unknown, 11/02/18) PENICILLINS (Verified Allergy, Unknown, 11/02/18) Subjective dw jamey Khorami patient refuses peg feels better no chest pain or sob Objective Last 24 Hour Vital Signs Date Time Temp Pulse Resp B/P (MAP) Pulse Ox O2 Delivery O2 Flow Rate FiO2 11/07/18 20:28 66 136/66 11/07/18 20:00 98.1 66 16 136/66 (89) 97 11/07/18 16:00 97.2 70 18 130/70 (90) 97 11/07/18 12:00 97.3 60 18 138/61 (86) 98 11/07/18 09:00 97.3 70 18 134/70 (91) 96 11/07/18 09:00 Room Air 11/07/18 08:56 70 134/70 11/07/18 08:53 134/70 11/07/18 04:00 97.5 69 16 114/36 (62) 96 11/07/18 00:00 97.3 61 18 110/53 (72) 97 Intake and Output 11/06/18 11/07/18 19:00 07:00 Intake Total 840 ml 415 ml Balance 840 ml 415 ml Intake Oral 840 ml 360 ml IV Total 55 ml # Voids 4 3 # Bowel Movements 4 Height (Feet): 5 Height (Inches): 3.00 Weight (Pounds): 100 General Appearance: WD/WN, no apparent distress Neck: supple Cardiovascular: regular rhythm Respiratory/Chest: lungs clear Abdomen: soft Stan Delgado MD Nov 07, 2018 21:19
--- NOTE | 2018-11-07 22:15 | Progress Note ---
DATE: 11/07/2018 SUBJECTIVE: The patient appears to be easily agitated, anxious demanding. She is having memory impairment. MENTAL STATUS EXAMINATION: The patient is alert and oriented times self, place, and situation. Mood is anxious. Affect is constricted. Congruent with mood. Thought process is circumstantial. Thought content, no suicidal or homicidal ideations. ASSESSMENT: AXIS I: Major depressive disorder. Anxiety disorder. Cognitive impairment AXIS II: Deferred. AXIS III: As above. AXIS IV: Low. PLAN: The patient will be continued on current medication. Provide the patient with reality orientation and supportive therapy. We will continue to follow and readjust the medications. Hira Mckeon M.D. DR: Shila JOB#: [id number] CC:
[2018-11-08] VITALS: BP 128/60
[2018-11-08] MEDS: Meropenem 1 GM in NS 55 ML IVPB SCH (00:19)
[2018-11-08 04:00] VITALS: BP 127/83
[2018-11-08 06:33] LABS: HEMATOCRIT 37.4 % (37.0-47.0); HEMOGLOBIN 11.8 G/DL (12.0-16.0); LYMPHOCYTES % (AUTO) 24.6 % (20.0-45.0); MEAN CORPUSCULAR VOLUME 95 FL (80-99); MONOCYTES % (AUTO) 11.9 % (1.0-10.0); NEUTROPHILS % (AUTO) 52.5 % (45.0-75.0); PLATELET COUNT 273 K/UL (150-450); RED BLOOD COUNT 3.93 M/UL (4.20-5.40); RED CELL DISTRIBUTION WIDTH 13.3 % (11.6-14.8); WHITE BLOOD COUNT 7.2 K/UL (4.8-10.8)
[2018-11-08 06:56] LABS: ALANINE AMINOTRANSFERASE 16 U/L (12-78); ALBUMIN 2.9 G/DL (3.4-5.0); ALBUMIN/GLOBULIN RATIO 0.9 (1.0-2.7); ALKALINE PHOSPHATASE 63 U/L (46-116); ANION GAP 5 mmol/L (5-15); ASPARTATE AMINO TRANSFERASE 39 U/L (15-37); BILIRUBIN,TOTAL 0.5 MG/DL (0.2-1.0); BLOOD UREA NITROGEN 27 mg/dL (7-18); CARBON DIOXIDE 33 MMOL/L (21-32); CHLORIDE 104 MMOL/L (98-107); CREATININE 0.9 MG/DL (0.55-1.30); SODIUM 142 MMOL/L (136-145)
--- NOTE | 2018-11-08 07:20 | NUR ---
NURSE NOTES: Received call from Dr. Delgado, received order to DC patient to [facility] today with hospital meds and Abx per ID.
--- NOTE | 2018-11-08 07:24 | NUR ---
HAND-OFF: Report given to Pina BARBOZA.
[2018-11-08 08:00] VITALS: BP 133/59
[2018-11-08] MEDS: Vitamin B12 1000mcg/ml Inj SUBQ SCH (08:47)
[2018-11-08] MEDS: Aspirin Baby 81mg ORAL SCH (08:48)
[2018-11-08] MEDS: Lactobacillus-GG tablet ORAL SCH ×3 (08:48→18:00)
[2018-11-08] MEDS: Lactulose 20gm/30ml UDC ORAL SCH ×2 (08:48→18:00)
[2018-11-08] MEDS: Docusate 100mg cap ORAL SCH (08:48)
[2018-11-08] MEDS: Sennosides 8.6mg tab ORAL SCH (08:48)
[2018-11-08] MEDS: Vitamin D 1000 IU Tab ORAL SCH ×2 (08:48→18:15)
[2018-11-08] MEDS: Losartan 50mg tab ORAL SCH (08:49)
[2018-11-08] MEDS: Magnesium Oxide 400mg tab ORAL SCH (08:49)
[2018-11-08] MEDS: Eliquis 2.5mg tablet ORAL SCH ×2 (08:49→18:15)
[2018-11-08] MEDS: Spironolactone 25mg tab ORAL SCH (08:49)
--- NOTE | 2018-11-08 09:56 | NUR ---
DISCHARGE PLANNING Discharge order noted Patient has been referred to [id number] [address] [address] Await Acceptance and Room Number
--- NOTE | 2018-11-08 10:34 | Infectious Diseases Prog Note ---
Assessment/Plan Assessment/Plan antibiotics : meropenem A 1. e.coli UTI s/p rx 2. + blood culture with coag neg staph likely contaminated 3. CHF 4. hypertension 5. dementia P 1. d/c meropenem 2. observe off antibiotics Subjective Constitutional: Denies: fever, chills Respiratory: Reports: shortness of breath, dry cough Gastrointestinal/Abdominal: Reports: nausea, diarrhea - decreased; Denies: vomiting Musculoskeletal: Reports: pain Allergies: Coded Allergies: CEPHALOSPORINS (Verified Allergy, Unknown, 11/02/18) PENICILLINS (Verified Allergy, Unknown, 11/02/18) Objective Vital Signs Last 24 Hour Vital Signs Date Time Temp Pulse Resp B/P (MAP) Pulse Ox O2 Delivery O2 Flow Rate FiO2 11/08/18 09:00 Room Air 11/08/18 08:49 127/83 11/08/18 08:49 78 127/83 11/08/18 08:00 97.3 63 20 133/59 (83) 94 11/08/18 04:00 98.2 78 16 127/83 (98) 95 11/08/18 00:00 98.4 67 16 128/60 (82) 95 11/07/18 21:00 Room Air 11/07/18 20:28 66 136/66 11/07/18 20:00 98.1 66 16 136/66 (89) 97 11/07/18 16:00 97.2 70 18 130/70 (90) 97 11/07/18 12:00 97.3 60 18 138/61 (86) 98 Height (Feet): 5 Height (Inches): 3.00 Weight (Pounds): 100 Respiratory/Chest: lungs clear Cardiovascular: normal rate, regular rhythm, no gallop/murmur Abdomen: soft, non tender Extremities: no edema Laboratory Tests Test 11/08/18 05:20 White Blood Count 7.2 K/UL (4.8-10.8) Red Blood Count 3.93 M/UL (4.20-5.40) L Hemoglobin 11.8 G/DL (12.0-16.0) L Hematocrit 37.4 % (37.0-47.0) Mean Corpuscular Volume 95 FL (80-99) Mean Corpuscular Hemoglobin 30.1 PG (27.0-31.0) Mean Corpuscular Hemoglobin Concent 31.7 G/DL (32.0-36.0) L Red Cell Distribution Width 13.3 % (11.6-14.8) Platelet Count 273 K/UL (150-450) Mean Platelet Volume 5.5 FL (6.5-10.1) L Neutrophils (%) (Auto) 52.5 % (45.0-75.0) Lymphocytes (%) (Auto) 24.6 % (20.0-45.0) Monocytes (%) (Auto) 11.9 % (1.0-10.0) H Eosinophils (%) (Auto) 9.0 % (0.0-3.0) H Basophils (%) (Auto) 2.0 % (0.0-2.0) Sodium Level 142 MMOL/L (136-145) Potassium Level 4.0 MMOL/L (3.5-5.1) Chloride Level 104 MMOL/L (98-107) Carbon Dioxide Level 33 MMOL/L (21-32) H Anion Gap 5 mmol/L (5-15) Blood Urea Nitrogen 27 mg/dL (7-18) H Creatinine 0.9 MG/DL (0.55-1.30) Estimat Glomerular Filtration Rate mL/min (>60) Glucose Level 115 MG/DL (74-106) H Calcium Level 9.0 MG/DL (8.5-10.1) Total Bilirubin 0.5 MG/DL (0.2-1.0) Aspartate Amino Transf (AST/SGOT) 39 U/L (15-37) H Alanine Aminotransferase (ALT/SGPT) 16 U/L (12-78) Alkaline Phosphatase 63 U/L (46-116) Total Protein 6.3 G/DL (6.4-8.2) L Albumin 2.9 G/DL (3.4-5.0) L Globulin 3.4 g/dL Albumin/Globulin Ratio 0.9 (1.0-2.7) L Current Medications Medications (Trade) Dose Ordered Sig/[place] Route PRN Reason Start Time Stop Time Status Last Admin Dose Admin Acetaminophen (Tylenol) 650 mg Q6H PRN ORAL Mild Pain/Temp > 100.5 11/04/18 02:30 12/02/18 02:29 11/08/18 05:12 Al Hydroxide/Mg Hydroxide (Mylanta) 30 ml Q6H PRN ORAL dyspepsia 11/04/18 02:30 12/02/18 02:29 11/06/18 13:47 Apixaban (Eliquis) 2.5 mg BID ORAL 11/04/18 09:00 12/03/18 08:59 11/08/18 08:49 Aspirin (ASA) 81 mg DAILY ORAL 11/04/18 09:00 12/03/18 08:59 11/08/18 08:48 Bisacodyl (Dulcolax) 5 mg DAILYPRN PRN ORAL Constipation 11/04/18 02:30 12/02/18 02:29 Carvedilol (Coreg) 3.125 mg EVERY 12 HOURS ORAL 11/04/18 09:00 12/03/18 20:59 11/08/18 08:49 Docusate Sodium (Colace) 100 mg DAILY ORAL 11/04/18 09:00 12/03/18 08:59 11/08/18 08:48 Escitalopram Oxalate (Lexapro) 10 mg DAILY ORAL 11/06/18 10:45 12/06/18 10:44 11/08/18 08:48 Famotidine (Pepcid) 20 mg DAILY ORAL 11/04/18 09:00 12/03/18 08:59 11/08/18 08:48 Folic Acid (Folate) 1 mg DAILY ORAL 11/06/18 18:00 12/06/18 17:59 11/08/18 08:48 Furosemide (Lasix) 40 mg DAILY IV 11/04/18 09:00 12/04/18 08:59 11/08/18 08:47 Lactobacillus Acidophilus (Culturelle) 1 tab THREE TIMES A DAY ORAL 11/04/18 09:00 12/03/18 08:59 11/08/18 08:48 Lactulose (Cephulac) 30 gm BID ORAL 11/06/18 09:00 12/02/18 02:29 11/08/18 08:48 Lorazepam (Ativan) 1 mg Q6H PRN ORAL For Anxiety 11/06/18 10:45 11/13/18 10:44 Losartan Potassium (Cozaar) 50 mg DAILY ORAL 11/04/18 09:00 12/03/18 08:59 11/08/18 08:49 Magnesium Oxide (Mag-Ox 400mg) 400 mg DAILY ORAL 11/04/18 09:00 12/03/18 08:59 11/08/18 08:49 Meropenem 1 gm/ Sodium Chloride 55 ml @ 110 mls/hr Q12H IVPB 11/04/18 13:00 11/08/18 23:59 11/08/18 00:19 Mirtazapine (Remeron) 7.5 mg BEDTIME ORAL 11/04/18 21:00 12/03/18 20:59 11/07/18 20:27 Nitroglycerin (Ntg) 0.4 mg Q5M PRN SL Prn Chest Pain 11/04/18 13:15 12/04/18 13:14 11/05/18 06:36 Sennosides (Senokot) 8.6 mg DAILY ORAL 11/04/18 09:00 12/03/18 08:59 11/08/18 08:48 Spironolactone (Aldactone) 25 mg DAILY ORAL 11/04/18 09:00 12/04/18 08:59 11/08/18 08:49 Vitamin D (Vitamin D) 2,000 intlu BID ORAL 11/04/18 09:00 12/03/18 08:59 11/08/18 08:48 Joe Villa MD Nov 08, 2018 10:34
[2018-11-08] MEDS ORDERED: CULTURELLE1 EACH ORAL (10:39)
[2018-11-08] MEDS ORDERED: LACTULOSE20 GM/301 ORAL (10:40)
[2018-11-08] MEDS ORDERED: VITAMIN D1000 UNI1 ORAL (10:41)
[2018-11-08] MEDS ORDERED: COREG3.125 MG ORAL (10:42)
[2018-11-08] MEDS ORDERED: MIRTAZAPINE15 MG ORAL (10:42)
[2018-11-08] MEDS ORDERED: SPIRONOLACTONE25 MG ORAL (10:43)
[2018-11-08] MEDS ORDERED: FUROSEMIDE40 MG ORAL (10:43)
[2018-11-08] MEDS ORDERED: COZAAR50 MG ORAL (10:44)
[2018-11-08] MEDS ORDERED: ASPIRIN81 MG ORAL (10:44)
[2018-11-08] MEDS ORDERED: FOLIC ACID1 MG ORAL (10:45)
[2018-11-08] MEDS ORDERED: PEPCID AC20 M2 PO (10:46)
[2018-11-08] MEDS ORDERED: LEXAPRO10 MG ORAL (10:46)
[2018-11-08] MEDS ORDERED: ATIVAN1 MG ORAL (10:47)
[2018-11-08] MEDS ORDERED: NS 500ML ONE ×2 (11:11→20:24)
[2018-11-08] MEDS ORDERED: NS 275ml ONE (11:11)
[2018-11-08 12:00] VITALS: BP 125/72
--- NOTE | 2018-11-08 13:40 | Neurology Progress Note ---
Interim History Interim History Interim History Ms. Garsia feels unwell. She has been unable to eat today. Her appetite is "gone." She is eager to go home. She continues to be cognitively impoverished. She continues to be motorically challenged. She denies any new neurological symptoms. Review of Systems Neuro Review of Systems Benign. Objective Physical Exam Last Vital Signs Date Time Temp Pulse Resp B/P (MAP) Pulse Ox O2 Delivery O2 Flow Rate FiO2 11/08/18 12:00 96.1 70 20 125/72 (89) 97 11/08/18 09:00 Room Air Laboratory Tests Test 11/08/18 05:20 White Blood Count 7.2 K/UL (4.8-10.8) Red Blood Count 3.93 M/UL (4.20-5.40) L Hemoglobin 11.8 G/DL (12.0-16.0) L Hematocrit 37.4 % (37.0-47.0) Mean Corpuscular Volume 95 FL (80-99) Mean Corpuscular Hemoglobin 30.1 PG (27.0-31.0) Mean Corpuscular Hemoglobin Concent 31.7 G/DL (32.0-36.0) L Red Cell Distribution Width 13.3 % (11.6-14.8) Platelet Count 273 K/UL (150-450) Mean Platelet Volume 5.5 FL (6.5-10.1) L Neutrophils (%) (Auto) 52.5 % (45.0-75.0) Lymphocytes (%) (Auto) 24.6 % (20.0-45.0) Monocytes (%) (Auto) 11.9 % (1.0-10.0) H Eosinophils (%) (Auto) 9.0 % (0.0-3.0) H Basophils (%) (Auto) 2.0 % (0.0-2.0) Sodium Level 142 MMOL/L (136-145) Potassium Level 4.0 MMOL/L (3.5-5.1) Chloride Level 104 MMOL/L (98-107) Carbon Dioxide Level 33 MMOL/L (21-32) H Anion Gap 5 mmol/L (5-15) Blood Urea Nitrogen 27 mg/dL (7-18) H Creatinine 0.9 MG/DL (0.55-1.30) Estimat Glomerular Filtration Rate mL/min (>60) Glucose Level 115 MG/DL (74-106) H Calcium Level 9.0 MG/DL (8.5-10.1) Total Bilirubin 0.5 MG/DL (0.2-1.0) Aspartate Amino Transf (AST/SGOT) 39 U/L (15-37) H Alanine Aminotransferase (ALT/SGPT) 16 U/L (12-78) Alkaline Phosphatase 63 U/L (46-116) Total Protein 6.3 G/DL (6.4-8.2) L Albumin 2.9 G/DL (3.4-5.0) L Globulin 3.4 g/dL Albumin/Globulin Ratio 0.9 (1.0-2.7) L Neurologic Exam Objective PHYSICAL EXAMINATION: GENERAL: She is a well-developed, well-nourished, but lean lady, lying in bed, in no acute distress. HEAD: Normocephalic and atraumatic. EENT: Examination benign. NECK: No neck rigidity was observed. NEUROLOGICAL EXAMINATION: MENTAL STATUS EXAMINATION: She was awake and alert. She was oriented to self, October 2018 and "[place]" [facility]. She did not know the date. She was able to recall 3/3 words immediately, but could not remember any of them in 1 minute and 3 minutes. She was able to remember Presidents, Trump and Obama, but could not remember presidents prior to that. Her mathematical skills were significantly impaired. Her visuospatial function was also significantly impaired. SPEECH: She had a mild dysarthria. LANGUAGE: She has an anomia for low and mid frequency words. CRANIAL NERVE EXAMINATION: II: The visual delgado were intact to confrontation. III, IV & : The external ocular movements were full and the pupils 3 mm in diameter, equal, round, regular, and reactive to light. V: She had normal facial sensations, and the temporales, masseters, and pterygoids functioned normally. VII: She had a left seventh central facial paresis. VIII: She was able to hear and had no nystagmus. IX: The palate moved symmetrically on phonation. X: She had no hoarseness of voice. XI: The sternocleidomastoids and trapezii functioned normally. XII: The tongue was in the midline without any fasciculations or atrophy. MOTOR SYSTEM: The tone was increased in all four extremities with spasticity. Examination of muscle mass revealed generalized muscle wasting. In addition, she also had bilateral ankle cord and left finger flexor contractures. Examination of power was difficult to assess because of varying degrees of effort. She, however, had a definite quadriparesis involving the left side more than the right. SENSORY EXAMINATION: She was able to discern between pinprick and light touch. She had problems with other sensory modalities. REFLEXES: 0 at the biceps, triceps, brachioradialis, knees, and ankles. The plantar response was flexor on the right and extensor on the left. COORDINATION: [id number] testing was performed with mild difficulty, but was not dysmetric. She was unable to perform [id number] testing. STANCE & GAIT: Could not be tested. Impression/Recommendations Diagnostic Impression 1. Ms. Kiki Garsia is an 82-year-old, right-handed, lady, with a past history of multiple medical problems, who was hospitalized for increased confusion, disorientation, agitation, and failure to thrive, and was found to have a urinary tract infection. The infection has been treated and she has improved, but still continues to be altered compared to her baseline with regard to her mental state. 2. She feels unwell. She has been unable to eat today. Her appetite is "gone." She is eager to go home. She continues to be cognitively impoverished. She continues to be motorically challenged. She denies any new neurological symptoms. 3. On neurological examination, at this time, she does have problems with orientation, recent and remote memory, visuospatial function, higher cognitive function, and language. She also has a left greater than right VII central facial paresis, generalized muscle wasting with bilateral ankle cord contractures and the left finger flexor contractures, weakness more marked on the left than on the right, globally absent deep tendon reflexes, and an extensor plantar response on the left side. 4. Laboratory data obtained on my initial evaluation revealed that she was anemic with a hemoglobin of 11.8 G. Her blood sugar was elevated at 120. Her calcium was minimally low at 8.3. Her troponins have been high with the last troponin measured at 0.504. Her proBNP is elevated at 13,618. Her albumin is low at 3.1. Her urinalysis reveals 1+ leukocyte esterase, 0-2 red blood cells, and 30-40 white blood cells per high-power field. 5. Further laboratory tests have revealed that she is significantly vitamin B12 deficient with a level of 264 and folic acid deficient with a level of 8. 6. The CT scan of the brain reveals atrophy and deep white matter changes but no large territorial infarct. 7. The EEG reveals an encephalopathy of a mild degree. 8. 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 Recommendations 1. The patient was given an explanation of the above-mentioned findings. 2. Continue present management. 3. Continue aggressive treatment of infectious process. 4. Continue to correct toxic metabolic imbalances. 5. Vitamin B12 1000 mcg subcutaneously monthly. 6. Folic acid 1 mg daily by mouth. 7. Observe. Polo Stewart M.D., M.S.P.H. Polo Stewart MD Nov 08, 2018 13:40
--- NOTE | 2018-11-08 14:20 | NUR ---
DISCHARGE PLANNING DISCHARGE ORDER NOTED Patient has been accepted back to; [facility] [address] [place] [id number] Bed: 34-B Skilled [phone] for Nurse to Nurse report [facility] ETA for transportation: 17:30
[2018-11-08 16:00] VITALS: BP 138/74
--- NOTE | 2018-11-08 16:23 | Cardiac Electrophysiology PN ---
Assessment/Plan Assessment/Plan 1. Troponin leak. The levels are flat. Denies any chest pain. On aspirin and Coreg 3.125 bid. Cardiac cath vs ischemia eval after infection resolves as out patient 2. Atrial fibrillation. On Coreg and Eliquis 2.5 mg twice a day. 3. Complete left bundle-branch block. 4. Cardiomyopathy with EF of 30%, on Coreg, Lasix, and Losartan 50 5. ESBL UTI, on antibiotic. LAMAR RN Subjective Subjective No CP or SOB. Comfortable in NAD. Awaiting DC today Objective Last 24 Hour Vital Signs Date Time Temp Pulse Resp B/P (MAP) Pulse Ox O2 Delivery O2 Flow Rate FiO2 11/08/18 12:00 96.1 70 20 125/72 (89) 97 11/08/18 09:00 Room Air 11/08/18 08:49 127/83 11/08/18 08:49 78 127/83 11/08/18 08:00 97.3 63 20 133/59 (83) 94 11/08/18 04:00 98.2 78 16 127/83 (98) 95 11/08/18 00:00 98.4 67 16 128/60 (82) 95 11/07/18 21:00 Room Air 11/07/18 20:28 66 136/66 11/07/18 20:00 98.1 66 16 136/66 (89) 97 Intake and Output 11/07/18 11/08/18 19:00 07:00 Intake Total 400 ml 355 ml Balance 400 ml 355 ml Intake Oral 400 ml 300 ml IV Total 55 ml # Voids 1 2 # Bowel Movements 2 Laboratory Tests Test 11/08/18 05:20 White Blood Count 7.2 K/UL (4.8-10.8) Red Blood Count 3.93 M/UL (4.20-5.40) L Hemoglobin 11.8 G/DL (12.0-16.0) L Hematocrit 37.4 % (37.0-47.0) Mean Corpuscular Volume 95 FL (80-99) Mean Corpuscular Hemoglobin 30.1 PG (27.0-31.0) Mean Corpuscular Hemoglobin Concent 31.7 G/DL (32.0-36.0) L Red Cell Distribution Width 13.3 % (11.6-14.8) Platelet Count 273 K/UL (150-450) Mean Platelet Volume 5.5 FL (6.5-10.1) L Neutrophils (%) (Auto) 52.5 % (45.0-75.0) Lymphocytes (%) (Auto) 24.6 % (20.0-45.0) Monocytes (%) (Auto) 11.9 % (1.0-10.0) H Eosinophils (%) (Auto) 9.0 % (0.0-3.0) H Basophils (%) (Auto) 2.0 % (0.0-2.0) Sodium Level 142 MMOL/L (136-145) Potassium Level 4.0 MMOL/L (3.5-5.1) Chloride Level 104 MMOL/L (98-107) Carbon Dioxide Level 33 MMOL/L (21-32) H Anion Gap 5 mmol/L (5-15) Blood Urea Nitrogen 27 mg/dL (7-18) H Creatinine 0.9 MG/DL (0.55-1.30) Estimat Glomerular Filtration Rate mL/min (>60) Glucose Level 115 MG/DL (74-106) H Calcium Level 9.0 MG/DL (8.5-10.1) Total Bilirubin 0.5 MG/DL (0.2-1.0) Aspartate Amino Transf (AST/SGOT) 39 U/L (15-37) H Alanine Aminotransferase (ALT/SGPT) 16 U/L (12-78) Alkaline Phosphatase 63 U/L (46-116) Total Protein 6.3 G/DL (6.4-8.2) L Albumin 2.9 G/DL (3.4-5.0) L Globulin 3.4 g/dL Albumin/Globulin Ratio 0.9 (1.0-2.7) L Objective HEAD AND NECK: No JVD. LUNGS: Clear. CARDIOVASCULAR: Shows irregular S1 and S2 with no gallop or murmur. ABDOMEN: Soft. EXTREMITIES: No pitting edema. Yoni Robbins MD Nov 08, 2018 16:23
--- NOTE | 2018-11-08 19:26 | Pulmonology Progress Note ---
Assessment/Plan Assessment/Plan Pulmonary Progress Note Assessment/Plan (1) UTI due to extended-spectrum beta lactamase (ESBL) producing Escherichia coli (2) CHF exacerbation (3) Elevated troponin (4) Positive blood culture HPI: The patient is an 82-year-old female, custodial resident, with a history of AFib, CHF, and multiple medical problems, admitted with ESBL UTI and bacteremia, which may be contamination, decompensated heart failure, and troponinemia. She has moderate bilateral pleural effusions, which are likely secondary to her heart failure. She is fairly stable from a respiratory standpoint. PROBLEM LIST: 1. ESBL UTI. 2. Staphylococcal bloodstream infection, likely contaminant. 3. Congestive heart failure with EF of 35%, admitted with decompensated heart failure. 4. Complete left bundle branch block. 5. AFib, on anticoagulation. 6. Troponinemia. 7. Bilateral pleural effusions, likely secondary to [place] forces. 8. History of DVT and PE in the past. 9. Hypertension, hyperlipidemia, peptic ulcer disease, peripheral neuropathy, CVA, hemiparesis, and GERD. TREATMENT PLAN: 1. Optimize pulmonary hygiene/mobilize as tolerated. 2. P.r.n. O2. 3. Monitor volumes and renal function, cautious diuresis as able. 4. Continue antibiotics per ID. 5. Diet per PARTNERSHIP DEVELOPMENT MANAGER with STRICT aspiration precautions 6. I will hold off on thoracentesis, but we will monitor effusions, if persistent effusions in the future, we can consider therapeutic and diagnostic thoracentesis at the [facility] at [facility]. 7. I would repeat chest imaging as an outpatient once the patient is euvolemic and consider cross-sectional imaging of the chest at that time. 8. The patient is DNR/DNI. Subjective Allergies: Coded Allergies: CEPHALOSPORINS (Verified Allergy, Unknown, 11/02/18) PENICILLINS (Verified Allergy, Unknown, 11/02/18) Subjective AFVSS on RA No cough no SOB no FC no CP Objective Vital Signs Noted General Appearance: no acute distress, other - confused HEENT: normocephalic, atraumatic, anicteric, mucous membranes moist Respiratory/Chest: chest wall non-tender, lungs clear, normal breath sounds, no respiratory distress, no accessory muscle use Cardiovascular: normal peripheral pulses, normal rate, regular rhythm Abdomen: normal bowel sounds, soft, non tender, no organomegaly, non distended , no mass Extremities: no cyanosis, no clubbing, no edema Current Medications Medications (Trade) Dose Ordered Sig/[place] Route PRN Reason Start Time Stop Time Status Last Admin Dose Admin Acetaminophen (Tylenol) 650 mg Q6H PRN ORAL Mild Pain/Temp > 100.5 11/04/18 02:30 12/02/18 02:29 11/07/18 10:56 Al Hydroxide/Mg Hydroxide (Mylanta) 30 ml Q6H PRN ORAL dyspepsia 11/04/18 02:30 12/02/18 02:29 11/06/18 13:47 Apixaban (Eliquis) 2.5 mg BID ORAL 11/04/18 09:00 12/03/18 08:59 11/07/18 08:55 Aspirin (ASA) 81 mg DAILY ORAL 11/04/18 09:00 12/03/18 08:59 11/07/18 08:55 Bisacodyl (Dulcolax) 5 mg DAILYPRN PRN ORAL Constipation 11/04/18 02:30 12/02/18 02:29 Carvedilol (Coreg) 3.125 mg EVERY 12 HOURS ORAL 11/04/18 09:00 12/03/18 20:59 11/07/18 08:56 Cyanocobalamin (Vitamin B12) 1,000 mcg DAILY SUBQ 11/06/18 17:30 11/08/18 09:01 11/07/18 08:57 Docusate Sodium (Colace) 100 mg DAILY ORAL 11/04/18 09:00 12/03/18 08:59 11/07/18 08:56 Escitalopram Oxalate (Lexapro) 10 mg DAILY ORAL 11/06/18 10:45 12/06/18 10:44 11/07/18 08:56 Famotidine (Pepcid) 20 mg DAILY ORAL 11/04/18 09:00 12/03/18 08:59 11/07/18 08:55 Folic Acid (Folate) 1 mg DAILY ORAL 11/06/18 18:00 12/06/18 17:59 11/07/18 08:54 Furosemide (Lasix) 40 mg DAILY IV 11/04/18 09:00 12/04/18 08:59 11/07/18 08:57 Lactobacillus Acidophilus (Culturelle) 1 tab THREE TIMES A DAY ORAL 11/04/18 09:00 12/03/18 08:59 11/07/18 12:05 Lactulose (Cephulac) 30 gm BID ORAL 11/06/18 09:00 12/02/18 02:29 11/07/18 08:57 Lorazepam (Ativan) 1 mg Q6H PRN ORAL For Anxiety 11/06/18 10:45 11/13/18 10:44 Losartan Potassium (Cozaar) 50 mg DAILY ORAL 11/04/18 09:00 12/03/18 08:59 11/07/18 08:53 Magnesium Oxide (Mag-Ox 400mg) 400 mg DAILY ORAL 11/04/18 09:00 12/03/18 08:59 11/07/18 08:54 Meropenem 1 gm/ Sodium Chloride 55 ml @ 110 mls/hr Q12H IVPB 11/04/18 13:00 11/08/18 23:59 11/07/18 12:04 Mirtazapine (Remeron) 7.5 mg BEDTIME ORAL 11/04/18 21:00 12/03/18 20:59 11/06/18 20:15 Nitroglycerin (Ntg) 0.4 mg Q5M PRN SL Prn Chest Pain 11/04/18 13:15 12/04/18 13:14 11/05/18 06:36 Sennosides (Senokot) 8.6 mg DAILY ORAL 11/04/18 09:00 12/03/18 08:59 11/07/18 08:56 Spironolactone (Aldactone) 25 mg DAILY ORAL 11/04/18 09:00 12/04/18 08:59 11/07/18 08:52 Vitamin D (Vitamin D) 2,000 intlu BID ORAL 11/04/18 09:00 12/03/18 08:59 11/07/18 08:54 Subjective ROS Limited/Unobtainable: No Allergies: Coded Allergies: CEPHALOSPORINS (Verified Allergy, Unknown, 11/02/18) PENICILLINS (Verified Allergy, Unknown, 11/02/18) Objective Last 24 Hour Vital Signs Date Time Temp Pulse Resp B/P (MAP) Pulse Ox O2 Delivery O2 Flow Rate FiO2 11/08/18 16:00 97.9 65 20 138/74 (95) 97 11/08/18 12:00 96.1 70 20 125/72 (89) 97 11/08/18 09:00 Room Air 11/08/18 08:49 127/83 11/08/18 08:49 78 127/83 11/08/18 08:00 97.3 63 20 133/59 (83) 94 11/08/18 04:00 98.2 78 16 127/83 (98) 95 11/08/18 00:00 98.4 67 16 128/60 (82) 95 11/07/18 21:00 Room Air 11/07/18 20:28 66 136/66 11/07/18 20:00 98.1 66 16 136/66 (89) 97 Intake and Output 11/07/18 11/08/18 19:00 07:00 Intake Total 400 ml 355 ml Balance 400 ml 355 ml Intake Oral 400 ml 300 ml IV Total 55 ml # Voids 1 2 # Bowel Movements 2 Laboratory Tests 11/08/18 05:20: White Blood Count 7.2, Red Blood Count 3.93L, Hemoglobin 11.8L, Hematocrit 37.4 , Mean Corpuscular Volume 95, Mean Corpuscular Hemoglobin 30.1, Mean Corpuscular Hemoglobin Concent 31.7L, Red Cell Distribution Width 13.3, Platelet Count 273, Mean Platelet Volume 5.5L, Neutrophils (%) (Auto) 52.5, Lymphocytes (%) (Auto) 24.6, Monocytes (%) (Auto) 11.9H, Eosinophils (%) (Auto) 9.0H, Basophils (%) (Auto) 2.0, Sodium Level 142, Potassium Level 4.0, Chloride Level 104, Carbon Dioxide Level 33H, Anion Gap 5, Blood Urea Nitrogen 27H, Creatinine 0.9, Estimat Glomerular Filtration Rate , Glucose Level 115H, Calcium Level 9.0, Total Bilirubin 0.5, Aspartate Amino Transf (AST/SGOT) 39H, Alanine Aminotransferase (ALT/SGPT) 16, Alkaline Phosphatase 63, Total Protein 6.3L, Albumin 2.9L, Globulin 3.4, Albumin/Globulin Ratio 0.9L Current Medications Medications (Trade) Dose Ordered Sig/[place] Route PRN Reason Start Time Stop Time Status Last Admin Dose Admin Acetaminophen (Tylenol) 650 mg Q6H PRN ORAL Mild Pain/Temp > 100.5 11/04/18 02:30 12/02/18 02:29 11/08/18 05:12 Al Hydroxide/Mg Hydroxide (Mylanta) 30 ml Q6H PRN ORAL dyspepsia 11/04/18 02:30 12/02/18 02:29 11/06/18 13:47 Apixaban (Eliquis) 2.5 mg BID ORAL 11/04/18 09:00 12/03/18 08:59 11/08/18 18:15 Aspirin (ASA) 81 mg DAILY ORAL 11/04/18 09:00 12/03/18 08:59 11/08/18 08:48 Bisacodyl (Dulcolax) 5 mg DAILYPRN PRN ORAL Constipation 11/04/18 02:30 12/02/18 02:29 Carvedilol (Coreg) 3.125 mg EVERY 12 HOURS ORAL 11/04/18 09:00 12/03/18 20:59 11/08/18 08:49 Docusate Sodium (Colace) 100 mg DAILY ORAL 11/04/18 09:00 12/03/18 08:59 11/08/18 08:48 Escitalopram Oxalate (Lexapro) 10 mg DAILY ORAL 11/06/18 10:45 12/06/18 10:44 11/08/18 08:48 Famotidine (Pepcid) 20 mg DAILY ORAL 11/04/18 09:00 12/03/18 08:59 11/08/18 08:48 Folic Acid (Folate) 1 mg DAILY ORAL 11/06/18 18:00 12/06/18 17:59 11/08/18 08:48 Furosemide (Lasix) 40 mg DAILY IV 11/04/18 09:00 12/04/18 08:59 11/08/18 08:47 Lactobacillus Acidophilus (Culturelle) 1 tab THREE TIMES A DAY ORAL 11/04/18 09:00 12/03/18 08:59 11/08/18 14:35 Lactulose (Cephulac) 30 gm BID ORAL 11/06/18 09:00 12/02/18 02:29 11/08/18 08:48 Lorazepam (Ativan) 1 mg Q6H PRN ORAL For Anxiety 11/06/18 10:45 11/13/18 10:44 11/08/18 14:51 Losartan Potassium (Cozaar) 50 mg DAILY ORAL 11/04/18 09:00 12/03/18 08:59 11/08/18 08:49 Magnesium Oxide (Mag-Ox 400mg) 400 mg DAILY ORAL 11/04/18 09:00 12/03/18 08:59 11/08/18 08:49 Mirtazapine (Remeron) 7.5 mg BEDTIME ORAL 11/04/18 21:00 12/03/18 20:59 11/07/18 20:27 Nitroglycerin (Ntg) 0.4 mg Q5M PRN SL Prn Chest Pain 11/04/18 13:15 12/04/18 13:14 11/05/18 06:36 Sennosides (Senokot) 8.6 mg DAILY ORAL 11/04/18 09:00 12/03/18 08:59 11/08/18 08:48 Spironolactone (Aldactone) 25 mg DAILY ORAL 11/04/18 09:00 12/04/18 08:59 11/08/18 08:49 Vitamin D (Vitamin D) 2,000 intlu BID ORAL 11/04/18 09:00 12/03/18 08:59 11/08/18 18:15 Brian Norman MD Nov 08, 2018 19:26
--- NOTE | 2018-11-08 19:35 | NUR ---
NURSE NOTES: Report given to RN Kaur at [facility].
[2018-11-08] MEDS ORDERED: Tubing IV Secondary IV ONE (20:24)
--- NOTE | 2018-11-08 20:31 | NUR ---
NURSE NOTES: Received paper report from TAMRA Mcdermott. Patient planned to be discharged. EMT arrive at 2009 on the unit. Patient in stable condition. Belongings checked but difference of $20 dollar noted. Wrote it in the belongings list and patient was unable to sign but notified patient regards to it. Other belongings are present as mentioned in the belonging's list. Patient in stable condition with stable vital sign: 149/67 Temp 97.9 96% o2 sat on room air RR 18 HR70, no pain noted at this time. Patient has no IV or any other medical line connected as of right now. Paperwork complete and given to EMT personnel, Jhon. Patient left the unit at 2023. Patient left the unit in clean and stable condition.
--- NOTE | 2018-11-08 20:50 | General Progress Note ---
Assessment/Plan Assessment/Plan: GAssessment - Anorexia - malnutrition - low albumin - depression and dementia, likely the underlying cause of poor po - GERD Recommendations - continue H2B - Low dose remeron qhs - can add other agents if Remeron ineffective - Boost/Ensure - Calorie count - PRN laxative - no plans for PEG placement Subjective Allergies: Coded Allergies: CEPHALOSPORINS (Verified Allergy, Unknown, 11/02/18) PENICILLINS (Verified Allergy, Unknown, 11/02/18) Subjective Feels OK/same on low dose Remeron still with poor appetite for discharge today Objective Last 24 Hour Vital Signs Date Time Temp Pulse Resp B/P (MAP) Pulse Ox O2 Delivery O2 Flow Rate FiO2 11/08/18 16:00 97.9 65 20 138/74 (95) 97 11/08/18 12:00 96.1 70 20 125/72 (89) 97 11/08/18 09:00 Room Air 11/08/18 08:49 127/83 11/08/18 08:49 78 127/83 11/08/18 08:00 97.3 63 20 133/59 (83) 94 11/08/18 04:00 98.2 78 16 127/83 (98) 95 11/08/18 00:00 98.4 67 16 128/60 (82) 95 11/07/18 21:00 Room Air Intake and Output 11/07/18 11/08/18 19:00 07:00 Intake Total 400 ml 355 ml Balance 400 ml 355 ml Intake Oral 400 ml 300 ml IV Total 55 ml # Voids 1 2 # Bowel Movements 2 Laboratory Tests 11/08/18 05:20: White Blood Count 7.2, Red Blood Count 3.93L, Hemoglobin 11.8L, Hematocrit 37.4 , Mean Corpuscular Volume 95, Mean Corpuscular Hemoglobin 30.1, Mean Corpuscular Hemoglobin Concent 31.7L, Red Cell Distribution Width 13.3, Platelet Count 273, Mean Platelet Volume 5.5L, Neutrophils (%) (Auto) 52.5, Lymphocytes (%) (Auto) 24.6, Monocytes (%) (Auto) 11.9H, Eosinophils (%) (Auto) 9.0H, Basophils (%) (Auto) 2.0, Sodium Level 142, Potassium Level 4.0, Chloride Level 104, Carbon Dioxide Level 33H, Anion Gap 5, Blood Urea Nitrogen 27H, Creatinine 0.9, Estimat Glomerular Filtration Rate , Glucose Level 115H, Calcium Level 9.0, Total Bilirubin 0.5, Aspartate Amino Transf (AST/SGOT) 39H, Alanine Aminotransferase (ALT/SGPT) 16, Alkaline Phosphatase 63, Total Protein 6.3L, Albumin 2.9L, Globulin 3.4, Albumin/Globulin Ratio 0.9L Height (Feet): 5 Height (Inches): 3.00 Weight (Pounds): 100 Objective Thin elderly WW NCAT supple CTA RRR abd soft ND NT no edema Mare Crawford MD Nov 08, 2018 20:50
--- NOTE | 2018-11-08 21:45 | Progress Note ---
DATE: 11/07/2018 CARDIOLOGY PROGRESS NOTE SUBJECTIVE: The patient is comfortable. No fever or chills. Without chest pain. OBJECTIVE: VITAL SIGNS: Blood pressure is 136/66, pulse 66, respirations 16, temperature 98.1. HEAD AND NECK: Shows no JVD. LUNGS: Clear. CARDIOVASCULAR: Shows regular S1 and S2 with no gallop or murmur. ABDOMEN: Soft. EXTREMITIES: No pitting edema. LABORATORY DATA: Labs show white count 6.5, hemoglobin 12.5, hematocrit 38, and platelet count is 291. Sodium of 146, potassium is 4.0, BUN of 27, creatinine 0.8. Troponin 0.427, 0.5, and 0.468. BNP 59887. ASSESSMENT AND PLAN: 1. Troponin elevation. The patient is comfortable. Denies any chest pain. Level is already flat. Continue medical therapy with aspirin and Coreg. 2. Atrial fibrillation. The patient is on Coreg and rate is controlled. The patient continued on Eliquis 2.5 mg b.i.d. 3. Left bundle-branch block. 4. Cardiomyopathy. EF of only 30% on Coreg, losartan, and Lasix. 5. ESBL UTI, on antibiotics. Per Dr. Villa. Yoni Robbins M.D. DR: GURMEET JOB#: [id number] CC:
--- NOTE | 2018-11-09 02:15 | Progress Note ---
DATE: 11/08/2018 SUBJECTIVE: The patient continues to be demanding. Has multiple complaints, anxiety, agitation, poor insight into her current medical condition. MENTAL STATUS EXAMINATION: Alert and oriented x4. Mood is anxious. Affect is flat. Thought process, there is a paucity of thought content and circumstantial. Thought content, no suicidal or homicidal ideation. ASSESSMENT: 1. Dementia. 2. Major depressive disorder. PLAN: We will continue current medications. Provide the patient with reality orientation and supportive therapy. Hira Mckeon M.D. DR: KAYLYN JOB#: [id number] CC:
--- NOTE | 2018-11-09 12:49 | Discharge Summary ---
Discharge Summary Discharge Summary _ DATE OF ADMISSION: 11/02/2018 DATE OF DISCHARGE: 11/08/2018 DISCHARGED BY: Dr. Stan Delgado CONSULTANTS: Dr. Hira Villa BRIEF HOSPITAL COURSE: Patient is an unfortunate 82-year-old female with history of CVA, history of atrial fibrillation, hypertension, and hyperlipidemia, who was sent in from nursing facility secondary to not feeling well and dysuria. She denied chest pain. She denied abdominal pain. There was no nausea or vomiting. She has history of constipation. She complained of burning on urination. She is DNR/ DNI. On evaluation at the ED, blood pressure was elevated to 161/70. Blood work was unremarkable. Urinalysis showed nitrate positive. RBCs and bacteria consistent with UTI. Troponin was elevated to 0.51. proBNP [id number]. Chest x- ray showed bilateral pleural effusion. CT of the abdomen and pelvis showed moderate to large left pleural effusion as well as moderate right pleural effusion with associated atelectasis, mild cardiomegaly, cholelithiasis and distended gallbladder. No aortic aneurysm or dissection. Wall thickening of the rectum and sigmoid colon concerning for colitis and proctitis. Fluid- filled gas filled small bowel loops, nonspecific. No nephrosis or obstructing stone in the kidney. Thickened bladder. Calcified uterine fibroid. She was given IV hydration. She was pancultured. She was given aspirin and nitropaste. She was started empirically on meropenem. She was then admitted for evaluation of UTI, elevated troponin and CHF. ID was consulted. Urine culture done at the shelter showed growth of ESBL E. coli. Patient is allergic to penicillin. She was given meropenem. Steam Frame Operator was consulted. Patient was noted to have elevated troponin. EKG showed atrial fibrillation with complete left bundle branch block. She was continued on aspirin. She denied chest pain. She was started on low-dose beta- chitra. She was given Lasix, and lisinopril. She was continued on Eliquis 2.5 mg twice daily. Echo showed EF of 32 to 35%. She complained of abdominal pain. She was given bowel regimen with stool softeners and laxatives. Patient had anorexia and had poor p.o. intake. GI was consulted for malnutrition and low albumin. She was continued on H2 blockers. She was encouraged p.o. intake. She was given low-dose Remeron. She was given dietary supplement. Blood culture showed growth of staph hominis. She was started empirically on IV vancomycin. Blood culture possibly contaminated. Vancomycin was eventually discontinued. Troponin levels were flat. Lisinopril was changed to losartan. She was given Aldactone. Acidizer was consulted for evaluation of pulmonary effusion. Per paint crew supervisor recommendation, hold off on thoracentesis but continue to monitor for effusion. To consider therapeutic and diagnostic thoracentesis at the [facility] at [facility]. Repeat chest imaging as outpatient once patient is euvolemic. She was placed on strict aspiration precautions. She had increased confusion, disorientation, agitation and failure to thrive. Neurologist was consulted. 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 CT scan showed atrophy and deep white matter changes but no large territorial infarct. EEG revealed encephalopathy of mild degree. She had significantly vitamin B12 deficiency and folic acid deficiency. She was given B12 and folic acid supplementation. Psychiatric evaluation was done. She was continued on Remeron and was started on escitalopram 10 mg in the morning. She was assessed to have the capacity to make medical decisions. Patient refused PEG placement. Bedside speech therapy evaluation recommended mechanical soft/chopped and thin liquids. Strict aspiration precaution. She completed course of meropenem. Antibiotics were discontinued. She was eventually discharged back to SNF. FINAL DIAGNOSES: ESBL UTI Cardiomyopathy/acute on chronic congestive heart failure with EF of 35%, admitted with decompensated heart failure Atrial fibrillation, rate controlled on anticoagulation Left bundle branch block Troponin elevation, likely due to troponin leak, levels were flat Major depressive disorder Dementia Anorexia, poor p.o. 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 DISCHARGE MEDICATIONS: Refer to Discharge Medication List. I have been assigned to complete a discharge summary on this account, I was not involved with the patient's management.--MISBAH Barnes Jacqueline Robles NP Nov 09, 2018 12:49
== END 2018-11-08 20:25 | DRG 689 ==
LOC: EDBD 12:40 → EMR 13:12 → EDBEDREQ 15:19 → 2W 15:34 → EDBEDREQSVC 15:47 → EDBEDREQ 15:47 → 4E 11-04 02:28
DX: N39.0 Urinary tract infection, site not specified (principal); G92 Toxic encephalopathy; I50.23 Acute on chronic systolic (congestive) heart failure; I69.354 Hemiplegia and hemiparesis following cerebral infarction affecting left non-dominant side; I44.2 Atrioventricular block, complete; Z68.1 Body mass index [BMI] 19.9 or less, adult; G72.0 Drug-induced myopathy; I42.9 Cardiomyopathy, unspecified; E46 Unspecified protein-calorie malnutrition; I11.0 Hypertensive heart disease with heart failure; Z16.12 Extended spectrum beta lactamase (ESBL) resistance; G62.9 Polyneuropathy, unspecified; E78.5 Hyperlipidemia, unspecified; K21.9 Gastro-esophageal reflux disease without esophagitis; K52.9 Noninfective gastroenteritis and colitis, unspecified; Z88.0 Allergy status to penicillin; I44.7 Left bundle-branch block, unspecified; F32.9 Major depressive disorder, single episode, unspecified; Z86.718 Personal history of other venous thrombosis and embolism; Z86.711 Personal history of pulmonary embolism; K27.9 Peptic ulcer, site unspecified, unspecified as acute or chronic, without hemorrhage or perforation; B96.20 Unspecified Escherichia coli [E. coli] as the cause of diseases classified elsewhere; I25.10 Atherosclerotic heart disease of native coronary artery without angina pectoris; I25.2 Old myocardial infarction; Z88.1 Allergy status to other antibiotic agents; I48.91 Unspecified atrial fibrillation; Z79.01 Long term (current) use of anticoagulants; Z66 Do not resuscitate; Z79.82 Long term (current) use of aspirin
CPT/HCPCS: 36415; 70450; 71045; 74177; 80048; 80053; 80061; 80202; 81003; 82306; 82607; 82746; 83036; 83605; 83880; 84443; 84484; 85025; 85651; 86592; 87040; 87081; 87086; 87181; 93005; 93306; 95819; 96365; 96375; 99285; J8499